=== PATIENT | female | born 1945 | race Caucasian/White ===

== ENCOUNTER → 2016-10-01 | Outpatient (CLI) | payer MEDICARE ==
[2016-10-01 16:12] LABS: Basophils % (A) 1 %; CH 29.5; CHCM 32.3; Eosinophils # (A) 0.2 k/uL (0-0.7); Eosinophils % (A) 3 %; HCT 38.2 % (34.0-46.0); HDW 2.35; Luc % (Auto) 2; Lymphocytes # (A) 1.9 k/uL (1.0-4.8); Lymphocytes % (A) 34 %; MCH 31.3 pg (25.0-35.0); MCHC 34.1 g/dL (31.0-37.0); MCV 91.9 fL (80.0-100.0); Mean Platelet Volume 7.7; Monocytes # (A) 0.3 k/uL (0-1.0); Monocytes % (A) 5 %; Neutrophils # (A) 3.2 k/uL (1.3-7.7); Neutrophils % (A) 56 %; RBC 4.16 m/uL (3.80-5.40); RDW 13.5 % (11.5-15.5); WBC 5.6 k/uL (3.8-10.6)
[2016-10-01 16:18] LABS: Creatine Kinase 112 U/L (30-135); Non-African American GFR(MDRD) >60 (>60 ml/min/1.73 sqM)
[2016-10-01 16:21] LABS: Rheumatoid Factor, Qnt <9 IU/mL (<12)
[2016-10-01 16:55] LABS: Erythrocyte Sedimentation Rate 18 mm/hr (0-20)
[2016-10-01 17:07] LABS: Vitamin B12 516 pg/mL
[2016-10-01 18:47] LABS: Hemoglobin A1C 5.5 % (4.2-6.1)
[2016-10-02 01:04] LABS: Treponemal Ab Non-Reactive (Non-Reactive)
[2016-10-02 01:35] LABS: ANA w/Reflex to Titer NEGATIVE (NEGATIVE)
[2016-10-02 04:23] LABS: Lyme Antibodies Total(IgG/IgM) 0.43 (<0.90)
== END ==
LOC: LABWHC1 15:39
PROVIDERS: ATTEND Psychiatry & Neurology Neurology
DX: G62.9 Polyneuropathy, unspecified (principal)
CPT/HCPCS: 36415; 82550; 82565; 82607; 82747; 83036; 84165; 84439; 84443; 85025; 85652; 86038; 86431; 86618; 86780

== ENCOUNTER → 2016-10-10 | Outpatient (CLI) | payer MEDICARE ==
--- NOTE | 2016-10-11 13:43 | MR ---
MRI brain with and without contrast HISTORY: Tremors left hand Multiplanar multisequence and postcontrast images through the brain following 15 cc MultiHance IV No comparisons There is no restricted diffusion. There is no hemorrhage or hydrocephalus. The corpus callosum, pitui tary, cervical medullary junction, cerebellopontine angles are unremarkable. No abnormal enhancement following contrast administration. Periventricular white matter shows scattered and confluent areas o f hyperintensity on inversion recovery and T2-weighted sequences. Normal vascular flow voids and enha ncement is present. The orbits show symmetric appearance. Some minimal inflammatory change present in the mastoid air cells on the right. IMPRESSION: Nonspecific white matter demyelination likely due to chronic small vessel ischemia. Age-r elated atrophy. No enhancing mass. Additional findings above.
--- NOTE | 2016-10-11 17:07 | MR ---
EXAMINATION TYPE: MR cervical spine wo con DATE OF EXAM: 10/10/2016 2:17 PM COMPARISON: NONE HISTORY: tremors left hand TECHNIQUE: Multiplanar, multisequence images of the cervical spine were acquired. C2-C3: No evidence for degenerative disc disease. No disc bulge/herniation or protrusion. No Canal stenosis. Foramina are patent bilaterally. C3-C4: There is left-sided foraminal encroachment due to uncovertebral joint hypertrophy, facet arthr opathy. No significant central stenosis. No sizable disc herniation, small broad-based disc bulge cau ses minimal anterior mass effect on the thecal sac. C4-C5: Right-sided foraminal encroachment is present. Posterior extension of endplate disc complex ma y contact the anterior cervical cord resulting in mild central canal stenosis. C5-C6: Broad-based posterior disc bulge causes minimal anterior mass effect on the thecal sac. Some l eft-sided foraminal encroachment is mild. No central stenosis. C6-C7: Broad-based posterior disc bulge causes minimal anterior mass effect on the thecal sac. Some m inimal left-sided foraminal encroachment is present. C7-T1: No evidence for degenerative disc disease. No disc bulge/herniation or protrusion. No Canal stenosis. Foramina are patent bilaterally. Cervical segments are intact. There is normal alignment. Cervical spinal cord is of normal signal. Craniovertebral junction relationships are within normal limits. Loss of disc height and signal is present at C6-7 with associated endplate discogenic marrow signal change. Minimal anterolisthesis gra de 1 C5-6. IMPRESSION: Mild multilevel degenerative disc disease. Foraminal encroachment as described.
== END | disposition home or self-care (01) ==
LOC: RADMRIMAIN 13:39
PROVIDERS: ATTEND Psychiatry & Neurology Neurology
DX: M50.00 Cervical disc disorder with myelopathy, unspecified cervical region (principal); G25.0 Essential tremor; G23.9 Degenerative disease of basal ganglia, unspecified; R90.89 Other abnormal findings on diagnostic imaging of central nervous system
CPT/HCPCS: 70553; 72141; A9577

== ENCOUNTER → 2017-01-28 | Outpatient (CLI) | payer MEDICARE ==
[2017-01-28 11:32] LABS: CH 30.4; CHCM 32.5; HCT 42.7 % (34.0-46.0); HDW 2.32; MCH 30.8 pg (25.0-35.0); MCHC 32.7 g/dL (31.0-37.0); MCV 94.1 fL (80.0-100.0); Mean Platelet Volume 8.3; RBC 4.54 m/uL (3.80-5.40); RDW 14.3 % (11.5-15.5); WBC 6.7 k/uL (3.8-10.6)
[2017-01-28 11:44] LABS: Anion Gap 10 mmol/L; Blood Urea Nitrogen 14 mg/dL (7-17); Carbon Dioxide 22 mmol/L (22-30); Chloride 110 mmol/L (98-107); Non-African American GFR(MDRD) >60 (>60 ml/min/1.73 sqM); Potassium 4.2 mmol/L (3.5-5.1); Sodium 142 mmol/L (137-145)
== END | disposition home or self-care (01) ==
LOC: LABPAT 11:07
PROVIDERS: ATTEND Internal Medicine Cardiovascular Disease
DX: Z01.812 Encounter for preprocedural laboratory examination (principal); I25.10 Atherosclerotic heart disease of native coronary artery without angina pectoris
CPT/HCPCS: 80051; 82565; 84520; 85027

== ENCOUNTER 2017-02-02 06:34 | Day surgery (SDC) | payer MEDICARE ==
[2017-01-28 15:58] VITALS: BMI 30.3
[~2017-02-02 06:34] MED LIST: ALPRAZolam 0.25 MG TAB PO PRN; ALPRAZolam 0.5 MG TAB PO PRN; ASPIRIN 325 MG TAB PO STA; ATORVASTATIN 80 MG TAB PO STA; NITROGLYCERIN SL TABS 0.4 MG TAB SUBLINGUAL PRN; SODIUM CHLORIDE 0.9% 1,000 ML in EMPTY BAG 1 BAG IV ONE
[2017-02-02] MEDS ORDERED: amLODIPine 10 MG TAB PO STA (07:17)
[2017-02-02] MEDS ORDERED: NITROGLYCERIN OINT 1 INCH/GM PACKET TOPICAL STA (07:17)
[2017-02-02 07:32] VITALS: PULSE 76; TEMP 97.7
[2017-02-02] MEDS ORDERED: SODIUM CHLORIDE 0.9% 1,000 ML IV ONE (07:37)
[2017-02-02] MEDS: MIDAZOLAM 2 MG/2 ML VIAL IV ONE ×2 (07:40→07:48)
[2017-02-02] MEDS ORDERED: fentaNYL (PF) 50 MCG/ML 2 ML AMP IV ONE (07:40)
[2017-02-02] MEDS: hydrALAZINE HCL 20 MG/ML 1 ML VIAL IV ONE ×2 (07:42→08:08)
[2017-02-02] MEDS ORDERED: LIDOCAINE 2% INJ 20 MG/ML SQ ONE (07:46)
[2017-02-02] MEDS ORDERED: RX INFO: IV CONTRAST WAS GIVEN 1 EACH MISC MISCELLANE PRN (08:28)
[2017-02-02] MEDS ORDERED: SODIUM CHLORIDE 0.9% 1,000 ML IV SCH (08:30)
[2017-02-02] MEDS ORDERED: IOHEXOL 350 MG/ML 125ML BOTTLE INJ ONE (08:34)
--- NOTE | 2017-02-02 08:48 | PCN ---
INDICATION: Abnormal stress test in patient with known CAD status post prior angioplasty of diagonal branch. PROCEDURE: After obtaining informed consent the left heart catheterization and coronary angiogram were performed via the right femoral artery using standard Franc catheters. The patient tolerated the procedure well without any obvious immediate complications. The femoral angiogram was performed and Angio-Seal was deployed for hemostasis. A size 3.5 Franc catheter was used as the size 4 was more selectively engaging the circ. FINDINGS: 1. HEMODYNAMICS: Left ventricular end-diastolic pressure was 15 mmHg. There is no significant gradient across the aortic valve. 2. LEFT VENTRICULOGRAM: Left ventriculogram is not performed. 3. ANGIOGRAPHIC DATA: The left main coronary artery is a short vessel and is free of stenosis. It divides into left anterior descending coronary artery and circumflex coronary artery. The circumflex coronary artery is a large caliber vessel, large dominant vessel. The very distal circ as it becomes the AV grove has 60 to 70% stenosis in it. The LAD shows mild atherosclerotic plaque just after the origin of the large caliber diagonal branch. At its worse it is probably 40 to 50% stenosis. Diagonal branch, which was previously stented appears subtotally occluded. Right coronary artery is a small, nondominant vessel and is free of significant disease. CONCLUSION: 1. 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 2. Moderate stenosis involving the AV groove circ. 3. Mild stenosis involving the LAD. PLAN: I am going to review the angiographic data with Dr. Salas, the on-call air traffic supervisor and see if we can angioplasty the diagonal branch. I explained these issues at length to the patient and she understands and in agreement to the plans. Patient received moderate conscious sedation. Total sedation time was 23 minutes. Patient had elevated blood pressures and received Apresoline during the study along with nitro paste and Norvasc. [facility] SYSTEMJosé Miguel
[2017-02-02] MEDS ORDERED: cloNIDine HCL 0.2 MG TAB PO SCH (09:00)
[2017-02-02] MEDS ORDERED: ATORVASTATIN 80 MG TAB PO SCH (09:00)
[2017-02-02 09:09] VITALS: RESP 18
[2017-02-02 10:34] VITALS: BP 107/55
[2017-02-02] MEDS ORDERED: amLODIPine 10 MG TAB PO SCH (21:00)
== END 2017-02-02 13:45 | disposition home or self-care (01) ==
LOC: CATHCVL 06:34
PROVIDERS: ATTEND Internal Medicine Cardiovascular Disease
DX: I25.10 Atherosclerotic heart disease of native coronary artery without angina pectoris (principal); I25.82 Chronic total occlusion of coronary artery; I10 Essential (primary) hypertension; Z95.5 Presence of coronary angioplasty implant and graft; E07.9 Disorder of thyroid, unspecified; Z79.899 Other long term (current) drug therapy
CPT/HCPCS: 93458; 99152; 99153 ×2; C1760; C1894; C1769; J2001; J2250; J0360; J3010; Q9967

== ENCOUNTER → 2017-03-23 | Outpatient (CLI) | payer MEDICARE ==
--- NOTE | 2017-03-23 12:12 | US ---
EXAMINATION TYPE: US venous doppler duplex LE DATE OF EXAM: 03/23/2017 12:04 PM COMPARISON: NONE CLINICAL HISTORY: LEG PAIN, SWELLING I82.01, I82.402, M79.661, M79.6. SIDE PERFORMED: Bilateral TECHNIQUE: The lower extremity deep venous system is examined utilizing real time linear array sonog pb with graded compression, doppler sonography and color-flow sonography. VESSELS IMAGED: External Iliac Vein (EIV) Common Femoral Vein Deep Femoral Vein Greater Saphenous Vein * Femoral Vein Popliteal Vein Proximal Calf Veins (* superficial vessels) Right Leg: Positive for DVT, thrombus seen within pop vessel, prox through calf veins. Echogenic thr ombus is present without compressibility. Common femoral vein is patent. Left Leg: Negative for DVT Grayscale, color doppler, spectral doppler imaging performed of the deep veins of the lower extremities. There is normal flow, compressibility, vascular waveforms. Positive results were relayed to the ordering physician's office by the jowl trimmer at 12:08 PM on . IMPRESSION: 1. Deep venous thrombosis within the right lower extremity extending from the popliteal vein into the calf veins. 2. No sonographic evidence of deep venous arthrosis within the left lower extremity.
== END | disposition home or self-care (01) ==
LOC: RADUSWWP 11:30
PROVIDERS: ATTEND Orthopaedic Surgery
DX: I82.431 Acute embolism and thrombosis of right popliteal vein (principal); I82.4Z1 Acute embolism and thrombosis of unspecified deep veins of right distal lower extremity; M79.662 Pain in left lower leg
CPT/HCPCS: 93970

== ENCOUNTER → 2017-03-25 | Outpatient (CLI) | payer MEDICARE ==
--- NOTE | 2017-03-25 17:38 | CT ---
EXAMINATION TYPE: CT brain wo con DATE OF EXAM: 03/25/2017 COMPARISON: NONE HISTORY: Medication change 2 days ago. Loss of balance and dizziness CT DLP: 999.8 mGycm. Automated Exposure Control for Dose Reduction was Utilized. TECHNIQUE: CT scan of the head is performed without contrast. FINDINGS: There is symmetric prominence of the peripheral sulci and ventricular system compatible wi th age-related atrophy. No suspicious extra-axial fluid collection is seen. Few foci of patchy hypoat tenuation are seen within the centrum semiovale. There is no acute intracranial hemorrhage, mass effe ct, or midline shift identified. The globes are intact and the visualized sinuses are clear. Dystroph ic calcifications are seen in both basal ganglia. Mild atherosclerosis is seen of the intracranial va sculature in the cavernous portions and supraclinoid portions of the internal carotid arteries. IMPRESSION: 1. No acute intracranial hemorrhage, mass effect, or midline shift is seen. 2. Mild age-related volume loss and nonspecific foci of white matter change that are likely on the ba sis of chronic microangiopathy.
== END | disposition home or self-care (01) ==
LOC: RADCTMAIN 17:14
PROVIDERS: ATTEND Family Medicine
DX: R90.82 White matter disease, unspecified (principal); R42 Dizziness and giddiness
CPT/HCPCS: 70450

== ENCOUNTER → 2018-05-19 | Outpatient (CLI) | payer MEDICARE, OTHER ==
[2018-05-19 15:07] VITALS: BP 190/79; PULSE 76; RESP 18; TEMP 97.6; BMI 26.9
--- NOTE | 2018-05-26 10:29 | P.GSHP ---
History of Present Illness H&P Date: 05/19/18 Chief Complaint: abnormal mammogram right breast Rasheeda is a 73-year-old white female who underwent a routine mammogram which was performed 04-27-18 she was noted to have an area of 5 mm calcifications in the right breast with associated focal asymmetric area. The patient had additional views of this breast with persistence of the calcifications and recommendation is for a stereotactic core biopsy. These are in the upper outer quadrant area. Does not feel any lumps or masses in her breast. There are no radiographic areas of concern in the contralateral breast. She has no nipple discharge or skin changes. She has had no trauma to the breast. Family History: unknown patient is adopted Hormonal history: menarche: 16 : 3, children, 2, 1 miscarrage, first at 26, breast fed: yes menopause: 40, Streck to me done for bleeding, her ovaries were removed as well control pills: reacted to them so could not use them hormones: none Past Surgical History: 1. gallbladder 2. thyroid 3. hysterectomy 4. elbow 5. knee replaced 6. tonsil 7. cardiac stent 8. bilateral cataract surgery Past Medical History: 1. HTN 2. high cholesterol 3. esophageal spasm Social History: smoke: none alcohol: none drugs: none - Constitutional Constitutional: Denies chills, Denies fever - EENT Eyes: denies blurred vision, denies pain Ears: deny: decreased hearing, tinnitus Ears, nose, mouth and throat: Denies headache, Denies sore throat - Breasts Breasts: bilateral: as per HPI - Cardiovascular Comment: cardiac stent, [place] about 6 years ago, deep vein thrombosis Cardiovascular: Reports high blood pressure - Respiratory Respiratory: Denies cough, Denies 7 - Gastrointestinal Comment: esophageal spasm Gastrointestinal: Denies abdominal pain, Denies diarrhea, Denies nausea, Denies vomiting - Genitourinary (Female) Genitourinary: Denies dysuria, Denies hematuria - Menstruation Menstruation: Reports post hysterectomy - Musculoskeletal Comment: herniated disc in her back Musculoskeletal: Reports myalgias - Integumentary Integumentary: Denies pruritus, Denies rash - Neurological Neurological: Denies numbness, Denies weakness - Psychiatric Psychiatric: Reports anxiety, Reports depression - Endocrine Endocrine: Reports fatigue, Reports weight change - Hematologic/Lymphatic Comment: aspirin - Allergic/Immunologic Allergic/Immunologic: Reports seasonal allergies Past Medical History Past Medical History: Deep Vein Thrombosis (DVT), GERD/Reflux, Hypertension, Myocardial Infarction ([place]), Thyroid Disorder Additional Past Medical History / Comment(s): 2012 DVT RT CALF Last Myocardial Infarction Date:: APPROX 2006 History of Any Multi-Drug Resistant Organisms: None Reported Past Surgical History: Adenoidectomy, Cholecystectomy, Heart Catheterization With Stent, Hysterectomy, Orthopedic Surgery, Tonsillectomy Additional Past Surgical History / Comment(s): COLONOSCOPY, right knee replacement. BILAT CATARACTS Past Anesthesia/Blood Transfusion Reactions: Previous Problems w/ Anesthesia Additional Past Anesthesia/Blood Transfusion Reaction / Comment(s): SLOW TO WAKE UP Date of Last Stent Placement:: 2006 ? Past Psychological History: Anxiety Smoking Status: Never smoker Past Alcohol Use History: None Reported Past Drug Use History: None Reported - Past Family History Mother History Unknown: Yes Additional Family Medical History / Comment(s): PT ADOPTED-FAMILY HX UNKNOWN Medications and Allergies Home Medications Medication Instructions Recorded Confirmed Type Levothyroxine Sodium [Synthroid] 112 mcg PO DAILY 01/28/17 05/19/18 History Aspirin 81 mg PO DAILY 02/02/17 05/19/18 History Atorvastatin [Lipitor] 80 mg PO HS 03/23/17 05/19/18 History Acetaminophen Tab [Tylenol Tab] 500 mg PO Q6H 05/19/18 05/19/18 History Benazepril/Hydrochlorothiazide 1 each PO DAILY 05/19/18 05/19/18 History [Benazepril-Hctz 20-25 mg Tab] C,E,Zinc,Copper 11/Orvcn3v/Lut 1 each PO DAILY 05/19/18 05/19/18 History [Ocuvite Adult 50 Plus Softgel] Cholecalciferol [Vitamin D3] 1,000 unit PO DAILY 05/19/18 05/19/18 History Famotidine 40 mg PO DAILY 05/19/18 05/19/18 History Allergies Allergy/AdvReac Type Severity Reaction Status Date / Time codeine Allergy Nausea & Verified 03/23/17 14:17 Vomiting Tetracyclines Allergy Rash/Hives Verified 03/23/17 14:17 Surgical - Exam BMI 26.9 - General well developed, well nourished, no distress - Eyes normal ocular movement - ENT no hearing loss, no congestion - Neck no masses, trachea midline - Respiratory normal respiratory effort, clear to auscultation - Cardiovascular Rhythm: regular Heart Sounds: normal: S1, S2 - Abdomen Abdomen: soft, non tender, no guarding, no rigid, no rebound - Integumentary normal turgar - Neurologic no disoriented, no combative - Musculoskeletal normal gait - Psychiatric oriented to time, oriented to person, oriented to place, speech is normal, memory intact Breast exam: Right breast exam: Multiple position exam no dominant masses or nodules of concern Right axilla: No adenopathy of concern Left breast: Multi-positional exam no dominant masses or nodules of concern Left axilla: No adenopathy of concern Results mammogram reviewed Assessment and Plan Assessment: Impression: 1. Right breast mammographic abnormality for which stereotactic core biopsy is recommended 2. Status post cholecystectomy 3. Status post thyroid surgery 4. Status post hysterectomy 5. Knee replacement 6. Cardiac stent 7. Bilateral cataract surgery 8. Hypertension 9. High cholesterol 10. Esophageal spasm Plan: 1. Stereotactic core biopsy of the right breast 2. Medical management of medical conditions CC: Dr. Umesh Pan
== END | disposition home or self-care (01) ==
LOC: WWCWWP 14:41
PROVIDERS: ATTEND Surgery
DX: Z53.9 Procedure and treatment not carried out, unspecified reason (principal)

== ENCOUNTER → 2018-06-16 | Day surgery (SDC) | payer MEDICARE, OTHER ==
[2018-06-16 07:24] VITALS: RESP 16; TEMP 97.7; BMI 26.9
[2018-06-16 08:30] VITALS: BP 202/80; PULSE 77
--- NOTE | 2018-06-16 12:34 | P.PN ---
Progress Note - Text Progress Note Date: 06/16/18 The patient was scheduled for a stereotactic core biopsy this morning. Her blood pressure however systolic was approximately 206 and multiple checks. Her primary care doctor was contacted and the patient's stereotactic core biopsy was canceled today to be rescheduled. She is going to see her primary care doctor today. Plan: Medical control of blood pressure after which stereotactic core biopsy will be performed Cc: Dr. Umesh Pan
== END ==
LOC: RADMAMWWP 06:58
PROVIDERS: ATTEND Surgery
DX: R92.8 Other abnormal and inconclusive findings on diagnostic imaging of breast (principal); Z53.8 Procedure and treatment not carried out for other reasons

== ENCOUNTER → 2018-09-22 | Outpatient (CLI) | payer MEDICARE, OTHER ==
--- NOTE | 2018-09-22 12:08 | US ---
EXAMINATION TYPE: US renal artery duplex complete DATE OF EXAM: 09/22/2018 COMPARISON: NONE CLINICAL HISTORY: I10 hypertension. Uncontrolled HTN per patient MEASUREMENTS: RENAL SIZE: Rt Kidney: 9.3 x 4.9 x 4.1cm Lt Kidney: 10.0 x 5.3 x 5.0cm RESISTANCE INDEX Right: 0.72 Left: 0.76 RA/AO RATIO (< 3.5 ) Right: 2.8 Left: 3.3 RA VELOCITY ( < 180 cm/s) Right: 129.9 cm/s proximal Left: 153.2 cm/s proximal and highest of 4 measures Aorta: size is wnl, however, ectatic appearance is noted mid and distally with hyperechoic, intimal w all plaque noted mid and distally. Renal US: no hydronephrosis or masses seen. Renal Artery Duplex: a bnormally elevated PSV is noted in proximal bilateral renal artery with mildly elevated RA/AO Ratio o n left side, but still wnl. Aorta shows some ectasia and diffuse atherosclerotic change without greater than 3 cm aneurysm, it is visualized through the bifurcation. Scanning of both kidneys shows no gross hydronephrosis. Renal si zes are symmetric and within normal limits. Renovascular ultrasound shows some elevated velocities bilaterally with ratios upper limits of normal but no convincing evidence of hemodynamically significant focal stenosis as peak systolic velocity m easurements are still within normal limits. IMPRESSION: Moderate diffuse atherosclerotic changes bilaterally from aorta involving both renal waqas robert without convincing evidence for clinically significant focal renal artery stenosis.
== END ==
LOC: RADUSWWP 08:01
PROVIDERS: ATTEND Internal Medicine Cardiovascular Disease
DX: I10 Essential (primary) hypertension (principal)
CPT/HCPCS: 93975

== ENCOUNTER → 2019-03-09 | Outpatient (CLI) | payer MEDICARE, OTHER ==
[2019-03-09 10:03] VITALS: BP 163/82; PULSE 60; RESP 18; TEMP 98.2; BMI 27.8
--- NOTE | 2019-03-09 10:28 | P.PN ---
Subjective Progress Note Date: 03/09/19 Rasheeda is a 73-year-old white female who underwent a routine mammogram which was performed 04-27-18 she was noted to have an area of 5 mm calcifications in the right breast with associated focal asymmetric area. The patient had additional views of this breast with persistence of the calcifications and r ecommendation is for a stereotactic core biopsy. These are in the upper outer quadrant area. Does not feel any lumps or masses in her breast. There are no radiographic areas of concern in the contralateral breast. She has no nipple discharge or skin changes. She has had no trauma to the breast. Rasheeda was scheduled for stereotactic core biopsy and [id number]. On the day of the procedure her systolic blood pressure was over 200 and the procedure was canceled. She has since seen her medical doctor and her blood pressure is now under control. The patient has not noted any changes in her breast. She has no nipple discharge or abnormalities. Family History: unknown patient is adopted Hormonal history: menarche: 16 : 3, children, 2, 1 miscarrage, first at 26, breast fed: yes menopause: 40, hysterectomy done for bleeding, her ovaries were removed as well control pills: reacted to them so could not use them hormones: none Past Surgical History: 1. gallbladder 2. thyroid 3. hysterectomy 4. elbow 5. knee replaced 6. tonsil 7. cardiac stent 8. bilateral cataract surgery 9. Stretching of esophageal stricture done endoscopically Past Medical History: 1. HTN 2. high cholesterol 3. esophageal spasm Social History: smoke: none alcohol: none drugs: none - Constitutional Constitutional: Denies chills, Denies fever - EENT Eyes: denies blurred vision, denies pain Ears: deny: decreased hearing, tinnitus Ears, nose, mouth and throat: Denies headache, Denies sore throat - Breasts Breasts: bilateral: as per HPI - Cardiovascular Comment: cardiac stent, [place] about 6 years ago, deep vein thrombosis Cardiovascular: Reports high blood pressure - Respiratory Respiratory: Denies cough, Denies 7 - Gastrointestinal Comment: esophageal spasm Gastrointestinal: Denies abdominal pain, Denies diarrhea, Denies nausea, Denies vomiting - Genitourinary (Female) Genitourinary: Denies dysuria, Denies hematuria - Menstruation Menstruation: Reports post hysterectomy - Musculoskeletal Comment: herniated disc in her back Musculoskeletal: Reports myalgias - Integumentary Integumentary: Denies pruritus, Denies rash - Neurological Neurological: Denies numbness, Denies weakness - Psychiatric Psychiatric: Reports anxiety, Reports depression - Endocrine Endocrine: Reports fatigue, Reports weight change - Hematologic/Lymphatic Comment: aspirin - Allergic/Immunologic Allergic/Immunologic: Reports seasonal allergies Past Medical History Past Medical History: Deep Vein Thrombosis (DVT), GERD/Reflux, Hypertension, Myocardial Infarction ([place]), Thyroid Disorder Additional Past Medical History / Comment(s): 2012 DVT RT CALF Last Myocardial Infarction Date:: APPROX 2006 History of Any Multi-Drug Resistant Organisms: None Reported Past Surgical History: Adenoidectomy, Cholecystectomy, Heart Catheterization With Stent, Hysterectomy, Orthopedic Surgery, Tonsillectomy Additional Past Surgical History / Comment(s): COLONOSCOPY, right knee replacement. BILAT CATARACTS Past Anesthesia/Blood Transfusion Reactions: Previous Problems w/ Anesthesia Additional Past Anesthesia/Blood Transfusion Reaction / Comment(s): SLOW TO WAKE UP Date of Last Stent Placement:: 2006 ? Past Psychological History: Anxiety Smoking Status: Never smoker Past Alcohol Use History: None Reported Past Drug Use History: None Reported Objective - Vital Signs Vital signs: Vital Signs Temp 98.2 F 03/09/19 10:00 Pulse 60 03/09/19 10:00 Resp 18 03/09/19 10:00 BP 163/82 03/09/19 10:00 Pulse Ox 94 L 03/09/19 10:00 Intake & Output 03/08/19 03/09/19 03/09/19 18:59 06:59 18:59 Weight 68.946 kg - Exam BMI 27.8 - Constitutional General appearance: Present: average body habitus - EENT Eyes: Present: EOMI ENT: Present: hearing grossly normal - Neck Neck: Present: normal ROM - Respiratory Respiratory: bilateral: CTA - Cardiovascular Rhythm: regular Heart sounds: normal: S1, S2 - Gastrointestinal General gastrointestinal: Present: soft - Integumentary Integumentary Comment(s): Multiple nevi over her back and a dark nevus in the lower outer aspect of the right breast for which excision is recommended Integumentary: Present: normal turgor - Musculoskeletal Musculoskeletal: Present: gait normal - Psychiatric Psychiatric: Present: A&O x's 3, appropriate affect, intact judgment & insight - Additional findings Additional findings: breast exam: Right breast: Multi-positional exam fibrocystic changes no dominant masses or nodules of concern Right axilla: No adenopathy of concern left breast: Multiple positional exam under dominant masses or nodules of concern Left axilla: No adenopathy of concern On the right breast in the inferior outer aspect is a dark nevus for which excision is recommended Assessment and Plan Assessment: Impression: 1. HTN 2. high cholesterol 3. esophageal spasm 4. Mammographic abnormality right breast 5. Patient for stereotactic core biopsy right breast 6. Multiple nevi dark nevus right breast lower outer quadrant for excision 7. The patient's last bilateral mammogram was in April 2018 at [facility] she will have a repeat bilateral mammogram on [id number]. Rasheeda was originally scheduled for stereotactic core biopsy in June 2018. At that procedure she was noted to have hypertension and the procedure was canceled. She is now been treated and the hypertension is under control. She is being rescheduled for stereotactic core biopsy of the right breast. Additionally after this is done excision of the dark nevus on the right breast w ill be performed. The patient does use baby aspirin she will stop this for 1 week prior to the procedure if okay with her medical doctor. The patient's last bilateral mammogram was 04/27/2018. We have discussed repeating a mammogram prior to the stereo biopsy in case there are changes which would require additional biopsy. Understands and her stereo biopsy will be scheduled the week after her bilateral mammogram. Plan: 1. Stereotactic core biopsy right breast 2. Excision of nevus right breast 3. Medical management medical conditions Cc: Dr. Umesh Pan
== END | disposition home or self-care (01) ==
LOC: WWCWWP 09:48
PROVIDERS: ATTEND Surgery
DX: Z53.9 Procedure and treatment not carried out, unspecified reason (principal)

== ENCOUNTER → 2019-05-10 | Outpatient (CLI) | payer MEDICARE, OTHER ==
--- NOTE | 2019-05-11 07:44 | MM ---
Reason for exam: additional evaluation requested from prior study. History: Patient is postmenopausal. Physical Findings: Nurse did not find any significant physical abnormalities on exam. MG 3D Diag Mammo W/Cad LEEROY Bilateral CC and MLO view(s) were taken. LM, CC with magnification, and LM with magnification view(s) were taken of the right breast. The breast tissue is heterogeneously dense. This may lower the sensitivity of mammography. There is a 7mm group of pleomorphic calcifications in the right upper outer quadrant at middle depth. Biopsy recommended. No suspicious abnormality on the left breast. Benign appearing similar left calcifications. These results were verbally communicated with the patient and result sheet given to the patient on 05/10/19. ASSESSMENT: Suspicious, BI-RAD 4 RECOMMENDATION: Stereotactic core biopsy of the right breast. Called Dr. Jenkins's office with mammographic findings. Biopsy scheduled for 05/11/19 at 8:00. PRELIMINARY REPORT CALLED AND FAXED TO DR. JENKINS ON 05/11/19.
== END | disposition home or self-care (01) ==
LOC: RADMAMWWP 14:11
PROVIDERS: ATTEND Surgery
DX: R92.8 Other abnormal and inconclusive findings on diagnostic imaging of breast (principal)
CPT/HCPCS: 77066; G0279; 77062

== ENCOUNTER → 2019-05-11 | Day surgery (SDC) | payer MEDICARE, OTHER ==
[2019-05-11 07:31] VITALS: PULSE 52; RESP 16
[2019-05-11 08:49] VITALS: BP 182/91; TEMP 97.5
--- NOTE | 2019-05-11 09:08 | MM ---
EXAMINATION TYPE: MG stereo VAD BX RT DATE OF EXAM: 05/11/2019 COMPARISON: NONE CLINICAL HISTORY: Indeterminate right breast calcifications for which stereotactic guided biopsy was recommended. No the initial biopsy was canceled due to hypertension, recommended approximately 1 year ago. TECHNIQUE: Stereotactic guided core biopsy of right breast. FINDINGS: The procedure of stereotactic guided core biopsy was explained to the patient. Benefits, alternatives, and risks were discussed. An informed consent was then obtained. Preprocedural timeout was performed. The shortness pathway for biopsy was chosen approximately 7 mm group of calcifications in the upper-outer quadrant of the right breast. Shortness pathway was lateral to medial approach. I performed the localization, then surgeon, Dr. Maxim Aguilar performed the remainder of the procedure. A vacuum assisted biopsy gun was used to obtain multiple core samples. The patient tolerated the procedure well without any immediate complication. The patient was kept in the radiology department for short stay after the procedure and then discharged home in stable condition. Targeted calcifications are identified in specimen mammogram. Post biopsy mammogram shows the clip to appear in satisfactory position relative to the targeted area of concern on the preprocedure images. IMPRESSION: SUCCESSFUL, UNCOMPLICATED STEREOTACTIC GUIDED CORE BIOPSY OF A 7 MM CALCIFICATIONS IN THE UPPER OUTER QUADRANT OF THE RIGHT BREAST, FULL PATHOLOGY RESULTS TO FOLLOW. Pathology Results: Malignant RIGHT BREAST, STEREOTACTIC CORE BIOPSY: Ductal carcinoma in situ (DCIS), Grade 2 with associated calcifications. See Surgical Pathology Cancer Case Summary and Comment. Recommendation Surgical consult of the right breast. ROSALINDA
--- NOTE | 2019-05-11 14:39 | P.PCN ---
Date of Procedure: 05/11/19 Preoperative Diagnosis: Microcalcifications of concern right breast Postoperative Diagnosis: same Procedure(s) Performed: Right breast stereotactic core biopsy Anesthesia: local Surgeon: Yaima Jenkins Estimated Blood Loss (ml): 0 Pathology: other (8 cores of breast tissue) Condition: stable Disposition: same day Indications for Procedure: Microcalcifications of concern in the right breast Operative Findings: Radiographic specimen revealed microcalcifications Description of Procedure: The patient is a 74-year-old white female noted to have some microcalcifications of concern in the right breast. Stereotactic core biopsy was recommended. The patient was brought to the stereotactic core room and a mud boss film was obtained. A lateral to medial approach was utilized. The area of concern was identified. The area of concern was targeted. The breast was prepped using Betadine. 20 mL of lidocaine 1% was used to anesthetize the area of concern. A 9-gauge vacuum-assisted rotating core biopsy needle was driven to the correct coordinates and fired, post-fire films were obtained. The needle was noted to be in the correct location. 8 core biopsies were obtained. Radiograph of the specimen revealed the area of concern to be sampled was obtained. Microcalcifications were in the specimen. A secure hugo top Marker was deployed. Radiograph revealed this was in the correct location. The patient tolerated procedure in stable condition. Specimen sent to pathology. The patient will follow with Dr. Pan next week.
== END ==
LOC: RADMAMWWP 06:58
PROVIDERS: ATTEND Surgery
DX: D05.11 Intraductal carcinoma in situ of right breast (principal); N64.89 Other specified disorders of breast; Z88.5 Allergy status to narcotic agent; Z88.1 Allergy status to other antibiotic agents
CPT/HCPCS: 88305; 88342; 88341; 19081; A4648; J2001

== ENCOUNTER → 2019-05-18 | Outpatient (CLI) | payer MEDICARE, OTHER ==
[2019-05-18 11:46] VITALS: BP 171/84; PULSE 70; RESP 18; TEMP 98.1
--- NOTE | 2019-05-18 13:23 | P.PN ---
Subjective Progress Note Date: 05/18/19 Principal diagnosis: DCIS The patient is a 74-year-old white female who underwent a stereotactic core biopsy [place] [id number]. Pathology revealed ductal carcinoma in situ. Postprocedure the patient has had no complaints. Her pathology revealed a grade 2 tumor that was ER/[place] positive. Objective - Vital Signs Vital signs: Vital Signs Temp 98.1 F 05/18/19 11:44 Pulse 70 05/18/19 11:44 Resp 18 05/18/19 11:44 BP 171/84 05/18/19 11:44 Pulse Ox 98 05/18/19 11:44 Intake & Output 05/17/19 05/18/19 05/18/19 18:59 06:59 18:59 Weight 75.296 kg - Constitutional General appearance: Present: average body habitus - EENT Eyes: Present: EOMI ENT: Present: hearing grossly normal - Respiratory Respiratory: bilateral: CTA - Cardiovascular Rhythm: regular Heart sounds: normal: S1, S2 - Genitourinary Genitourinary Comment(s): Mild ecchymosis right breast at biopsy site No evidence of hematoma No evidence of infection Assessment and Plan Assessment: Impression: 1. DCIS right breast 2. Mild ecchymosis right breast of biopsy site I had a long discussion with the patient and her [id number] regarding the pathology results. We have discussed treatment options which would include lumpectomy plus or minus radiation, mastectomy plus or minus reconstruction, and possible sentinel node biopsy. I've also discussed surgical approaches for a lumpectomy which include lumpectomy via donut mastopexy which would result in some asymmetry of the nipple areolar complex between the breast. The patient understands these and wishes to proceed with lumpectomy via donut mastopexy if possible. Her case will be presented at tumor board. I have reviewed her case with Dr. Gibson. She does have scattered calcifications bilaterally the remainder of the calcifications are felt to be benign. I discussed further radiographic evaluation including MRI however at this time he did not feel this was necessary. The patient wishes to wait until July for her procedure. She has a vacation planned. The patient understands the risk of waiting, this that this could progress to become an invasive tumor. Despite this she wishes to wait. She will be scheduled for July. [facility] nurse navigator was present for the discussion. She will take the patient to meet the radiation oncologist later this afternoon. Discussed the fact that this is ER/[place] positive tumor and that she will be recommended to have hormonal therapy. Her case is to be presented at tumor board. Plan: 1. Appointment with radiation oncology 2. Present case at tumor board 3. Right breast needle localization lumpectomy via donut mastopexy with tissue transfer, right axillary sentinel node biopsy Encounter 45 minutes > 50% spent in planning and counseling Time with Patient: Greater than 30
== END ==
LOC: WWCWWP 11:32
PROVIDERS: ATTEND Surgery
DX: Z53.9 Procedure and treatment not carried out, unspecified reason (principal)

== ENCOUNTER → 2019-07-13 | Outpatient (CLI) | payer MEDICARE, OTHER ==
[2019-07-13 10:01] VITALS: BP 176/77; PULSE 63; RESP 18; TEMP 98.3
--- NOTE | 2019-07-13 10:29 | P.PN ---
Subjective Progress Note Date: 07/13/19 Principal diagnosis: DCIS Rasheeda is a 73-year-old white female who underwent a routine mammogram which was performed 04-27-18 she was noted to have an area of 5 mm calcifications in the right breast with associated focal asymmetric area. The patient had additional views of this breast with persistence of the calcifications and recommendation is for a stereotactic core biopsy. These are in the upper outer quadrant area. Does not feel any lumps or masses in her breast. There are no radiographic areas of concern in the contralateral breast. She has no nipple discharge or skin changes. She has had no trauma to the breast. Rasheeda was scheduled for stereotactic core biopsy and [id number]. On the day of the procedure her systolic blood pressure was over 200 and the procedure was canceled. She has since seen her medical doctor and her blood pressure is now under control. Her stereotactic core biopsy was performed in May 2019. A pleomorphic group of calcifications was noted in the upper outer quadrant of the right breast. Stereotactic core biopsy revealed DCIS grade 2 ER/NH positive. The patient has not noted any changes in her breast. She has no nipple discharge or abnormalities. Family History: unknown patient is adopted Hormonal history: menarche: 16 : 3, children, 2, 1 [place], first at 26, breast fed: yes menopause: 40, hysterectomy done for bleeding, her ovaries were removed as well control pills: reacted to them so could not use them hormones: none Past Surgical History: 1. gallbladder 2. thyroid 3. hysterectomy 4. elbow 5. knee replaced 6. tonsil 7. cardiac stent 8. bilateral cataract surgery 9. Stretching of esophageal stricture done endoscopically Past Medical History: 1. HTN 2. high cholesterol 3. esophageal spasm Social History: smoke: none alcohol: none drugs: none - Constitutional Constitutional: Denies chills, Denies fever - EENT Eyes: denies blurred vision, denies pain Ears: deny: decreased hearing, tinnitus Ears, nose, mouth and throat: Denies headache, Denies sore throat - Breasts Breasts: bilateral: as per HPI - Cardiovascular Comment: cardiac stent, ID about 6 years ago, deep vein thrombosis Cardiovascular: Reports high blood pressure - Respiratory Respiratory: Denies cough - Gastrointestinal Comment: esophageal spasm Gastrointestinal: Denies abdominal pain, Denies diarrhea, Denies nausea, Denies vomiting - Genitourinary (Female) Genitourinary: Denies dysuria, Denies hematuria - Menstruation Menstruation: Reports post hysterectomy - Musculoskeletal Comment: herniated disc in her back Musculoskeletal: Reports myalgias - Integumentary Integumentary: Denies pruritus, Denies rash - Neurological Neurological: Denies numbness, Denies weakness - Psychiatric Psychiatric: Reports anxiety, Reports depression - Endocrine Endocrine: Reports fatigue, Reports weight change - Hematologic/Lymphatic Comment: aspirin - Allergic/Immunologic Allergic/Immunologic: Reports seasonal allergies Past Medical History Past Medical History: Deep Vein Thrombosis (DVT), GERD/Reflux, Hypertension, Myocardial Infarction (ID), Thyroid Disorder Additional Past Medical History / Comment(s): 2012 DVT RT CALF Last Myocardial Infarction Date:: APPROX 2006 History of Any Multi-Drug Resistant Organisms: None Reported Past Surgical History: Adenoidectomy, Cholecystectomy, Heart Catheterization With Stent, Hysterectomy, Orthopedic Surgery, Tonsillectomy Additional Past Surgical History / Comment(s): COLONOSCOPY, right knee replacement. BILAT CATARACTS Past Anesthesia/Blood Transfusion Reactions: Previous Problems w/ Anesthesia Additional Past Anesthesia/Blood Transfusion Reaction / Comment(s): SLOW TO WAKE UP Date of Last Stent Placement:: 2006 ? Past Psychological History: Anxiety Smoking Status: Never smoker Past Alcohol Use History: None Reported Past Drug Use History: None Reported Objective - Vital Signs Vital signs: Vital Signs Temp 98.3 F 07/13/19 09:59 Pulse 63 07/13/19 09:59 Resp 18 07/13/19 09:59 BP 176/77 07/13/19 09:59 Pulse Ox 95 07/13/19 09:59 Intake & Output 07/12/19 07/13/19 07/13/19 18:59 06:59 18:59 Weight 73.936 kg - Exam BMI 29.8 - Constitutional General appearance: Present: average body habitus - EENT Eyes: Present: EOMI ENT: Present: hearing grossly normal - Neck Neck: Present: normal ROM - Respiratory Respiratory: bilateral: CTA - Cardiovascular Rhythm: regular Heart sounds: normal: S1, S2 - Gastrointestinal General gastrointestinal: Present: normal bowel sounds, soft - Integumentary Integumentary: Present: normal turgor - Musculoskeletal Musculoskeletal: Present: gait normal - Psychiatric Psychiatric: Present: A&O x's 3, appropriate affect, intact judgment & insight - Additional findings Additional findings: breast exam: BRA 40C ptosis grade 2/3 Inspection: No skin lesions of concern on the breast, no nipple inversion, under both breasts some mild yeast infection Palpation: Right Breasts: Multiple positional exam fibrocystic changes, no dominant masses or nodules of concern Right axilla: No adenopathy of concern left breast: Multiple positional exam no dominant masses or nodules of concern, fibrocystic changes Left axilla: No adenopathy of concern Assessment and Plan Assessment: Impression: 1. Right breast ductal carcinoma in situ 2. Hypertension 3. High cholesterol 4. Esophageal spasm 5. Prior history of cardiac stents placed 6. mild yeast infection under both breast Plan: 1. Nystatin apply under breast 2. Right breast sentinel node injection/sentinel node biopsy/possible axillary node dissection, needle localization and lumpectomy possible tissue transfer 3. Medical clearance Cc: Dr. Umesh Pan
== END | disposition home or self-care (01) ==
LOC: WWCWWP 09:33
PROVIDERS: ATTEND Surgery
DX: Z53.9 Procedure and treatment not carried out, unspecified reason (principal)

== ENCOUNTER 2019-07-18 09:54 | Day surgery (SDC) | payer MEDICARE, OTHER ==
[2019-07-17 09:48] VITALS: BMI 29.8
[~2019-07-18 09:54] MED LIST changes: -ALPRAZolam 0.25 MG TAB PO PRN; -ALPRAZolam 0.5 MG TAB PO PRN; -ASPIRIN 325 MG TAB PO STA; -ATORVASTATIN 80 MG TAB PO STA; +DEXAMETHASONE SOD PHOSPHATE 10 MG/ML 1 ML VIAL IV ONE; +HEPARIN SODIUM,PORCINE 5,000 UNIT/ML 1 ML VIAL SQ ONE; +LACTATED RINGERS 1,000 ML IV SCH; +LIDOCAINE 1% 20 ML VIAL (10MG/ML) FOR IV START INTRADERMA PRN; -NITROGLYCERIN SL TABS 0.4 MG TAB SUBLINGUAL PRN; +Pre Op ABX Message 1 EACH MISC MISCELLANE ONE; -SODIUM CHLORIDE 0.9% 1,000 ML in EMPTY BAG 1 BAG IV ONE; +fentaNYL (PF) 50 MCG/ML 2 ML AMP IV PRN
[2019-07-18 10:27] LABS: Glucose,Whole Blood 102 mg/dL (75-99)
[2019-07-18] MEDS ORDERED: ALPRAZolam 0.5 MG TAB PO ONE (10:33)
[2019-07-18] MEDS ORDERED: LIDOCAINE 1% INJ 10MG/ML (20 ML MDV) SQ ONE ×3 (11:19→14:15)
--- NOTE | 2019-07-18 12:08 | NM ---
EXAMINATION TYPE: NM sentinel node injection DATE OF EXAM: 07/18/2019 COMPARISON: NONE HISTORY: RIGHT BREAST CANCER TECHNIQUE AND FINDINGS: The procedure of sentinel lymph node injection was explained to the patient. The benefits, alternatives, and risks were discussed. An informed consent was then obtained. Overlying skin is cleaned with sterile alcohol. Following this, 524 uCi Tc99m Tilmanocept was inject ed in the upper outer aspect of the right nipple intradermally. The patient tolerated the procedure well without any immediate complication. The patient was kept in the radiology department for short stay after the procedure and then taken to surgery for surgical p rocedure what is presumed intraoperative gamma probe will be used for sentinel lymph node detection. IMPRESSION: Right breast radiotracer injection for sentinel node localization as above.
[2019-07-18] MEDS ORDERED: PROPOFOL 10 MG/ML 20 ML VIAL IV ONE (12:35)
[2019-07-18] MEDS ORDERED: ONDANSETRON 4 MG/2 ML VIAL ONE (12:35)
[2019-07-18] MEDS ORDERED: DEXAMETHASONE SOD PHOS (MDV) 100 MG/10 ML VIAL ONE (12:35)
[2019-07-18] MEDS ORDERED: fentaNYL (PF) 50 MCG/ML 2 ML AMP ONE (12:35)
[2019-07-18] MEDS ORDERED: GLYCOPYRROLATE 0.2 MG/ML 2 ML VIAL ONE (12:35)
[2019-07-18] MEDS ORDERED: LIDOCAINE 1% INJ 10MG/ML (20 ML MDV) ONE (12:35)
[2019-07-18] MEDS ORDERED: MIDAZOLAM 2 MG/2 ML VIAL ONE (12:35)
[2019-07-18] MEDS ORDERED: SUCCINYLCHOLINE CHLORIDE 100 MG/5 ML SYR IV ONE (12:35)
[2019-07-18] MEDS ORDERED: ROCURONIUM BROMIDE 10 MG/ML 5 ML VIAL IV ONE (12:35)
--- NOTE | 2019-07-18 14:26 | P.OP ---
Date of Procedure: 07/18/19 Preoperative Diagnosis: Right breast ductal carcinoma in situ Postoperative Diagnosis: Same Procedure(s) Performed: Right breast needle local lumpectomy, sentinel node biopsy Anesthesia: BEATRICE Surgeon: Yamia Jenkins Estimated Blood Loss (ml): 10 IV fluids (ml): 800 Pathology: other ([place] lymph node, breast tissue) Condition: stable Disposition: same day Indications for Procedure: core Biopsy-proven ductal carcinoma in situ right breast Operative Findings: Fibrofatty breast tissue Description of Procedure: Rasheeda is a 74-year-old white female who underwent a stereotactic core biopsy of the right breast. Pathology revealed ductal carcinoma in situ. She wished to undergo a lumpectomy with sentinel node biopsy after options were discussed with the patient. The patient preoperatively presented to the radiology department and the area of concern was localized. Mesocolon was injected for sentinel biopsy. The patient was taken to the operating room and following induction of anes thesia the right breast and axilla were prepped and draped in a sterile fashion. Using the neoprobe area of greatest radioactivity was identified. An incision was made and carried down into the axillary tissue. A deep lymph node was identified in level I and wide excision was performed using the Harmonic scalpel. After assured that hemostasis was attained the deep tissues were closed using 3-0 Vicryl suture. The skin was closed using 4-0 Monocryl. The breast was then approached. A crescent mastopexy incision had been marked preoperatively. The skin in this area was de-epithelialized. The lateral aspect the parenchyma was entered and the dissection was performed down to the shaft of the needle. The needle was grasped and brought into the field of work. Using Allis clamps the tissues grasped and wide excision was performed onto the pectoralis major muscle. The specimen was removed and painted for orientation. Titanium clips were placed to delineate the cavity. The deep tissues were closed using 3-0 Vicryl suture. Radiograph of the specimen revealed the area of concern had been removed. The deep tissues were closed using 3-0 Vicryl suture. The skin was closed using 4-0 Monocryl. Steri-Strips were applied. The patient tolerated the procedure in stable condition. All instrument and sponge counts were correct at the end of the case.
--- NOTE | 2019-07-18 14:28 | P.DS ---
Providers Attending physician: Yaima Jenkins Primary care physician: Umesh Pan Plan - Discharge Summary Discharge Rx Participant: No New Discharge Prescriptions: No Action Levothyroxine Sodium [Synthroid] 112 mcg PO QAM Aspirin 81 mg PO HS Acetaminophen Tab [Tylenol Tab] 500 mg PO Q6H Cholecalciferol [Vitamin D3] 1,000 unit PO HS C,E,Zinc,Copper 11/Cekei4r/Lut [Ocuvite Adult 50 Plus Softgel] 1 each PO QAM Atenolol [Tenormin] 25 mg PO HS Omeprazole 40 mg PO QAM methylPREDNISolone [Medrol Dose Pack] 4 mg PO DIRECTED Amoxicillin/Potassium Clav [Augmentin 875-125 Tablet] 1 tab PO BID Discharge Medication List Levothyroxine Sodium [Synthroid] 112 mcg PO QAM 01/28/17 [History] Aspirin 81 mg PO HS 02/02/17 [History] Acetaminophen Tab [Tylenol Tab] 500 mg PO Q6H 05/19/18 [History] C,E,Zinc,Copper 11/Hhgbt6p/Lut [Ocuvite Adult 50 Plus Softgel] 1 each PO QAM 05/19/18 [History] Cholecalciferol [Vitamin D3] 1,000 unit PO HS 05/19/18 [History] Atenolol [Tenormin] 25 mg PO HS 04/25/19 [History] Omeprazole 40 mg PO QAM 04/25/19 [History] Amoxicillin/Potassium Clav [Augmentin 875-125 Tablet] 1 tab PO BID 07/17/19 [History] methylPREDNISolone [Medrol Dose Pack] 4 mg PO DIRECTED 07/17/19 [History] Follow up Appointment(s)/Referral(s): Yaima Jenkins MD [STAFF PHYSICIAN] - 1 Week Activity/Diet/Wound Care/Special Instructions: do not drive for 24 hours wear bra at all times may shower after 48 hours Discharge Disposition: HOME SELF-CARE
--- NOTE | 2019-07-18 14:30 | P.NAPBC ---
NAPBC Queries - NAPBC Queries Was patient's case review presented at [facility] tumor board? If no, comment.: Yes Was patient's pathology reviewed at [facility]? If no, comment.: Yes Was breast conservation surgery offered? If no, comment.: Yes Was sentinel node biopsy offered? If no, comment.: Yes Was diagnosis confirmed by percutaneous core biopsy? If no, comment.: Yes Is patient mastectomy patient?: No Was a preop referral to reconstructive surgeon offered?: No Clinical Stage: Stage 0
[2019-07-18 14:42] VITALS: TEMP 97.2
--- NOTE | 2019-07-18 14:51 | MM ---
EXAMINATION TYPE: MG pre op needle loc RT, MG surgical specimen RT DATE OF EXAM: 07/18/2019 11:57 AM COMPARISON: NONE HISTORY: Right breast malignancy Informed consent was obtained and all the patient's questions were answered. The clip in question was localized mammographically. The standard sterile technique was utilized, as well as appropriate local anesthesia with 1% Lidocaine. Localization needle followed by placement of a guidewire was performed under mammographic guidance. Verification images demonstrate appropriate deployment of the guidewire. The patient tolerated the procedure well and left the department in stable condition. Specimen radiograph demonstrates the clip in question to reside within the specimen. IMPRESSION: Successful needle localization and open biopsy right breast with pathology results pending . Pathology Results: Malignant A. SENTINEL LYMPH NODE #1, BIOPSY: Lymph node with extensive fat replacement, negative for metastatic malignancy. CK7 and TAMEKA immunoperoxidase stains are confirmatory (controls appropriate). B. RIGHT AXILLARY CONTENTS: Two lymph nodes negative for metastasis. C. DE-EPITHELIALIZED TISSUE, RIGHT BREAST: Benign skin. D. RIGHT BREAST TISSUE, LUMPECTOMY: Ductal carcinoma in situ (DCIS), Grade 2- 3, involving the inked anterior and posterior margins. See Surgical Pathology Cancer Case Summary. Recommendation Surgical consult of the right breast. Continued surgical management for margins. MTDD
[2019-07-18] MEDS: LABETALOL SYRINGE 5 MG/ML IVP ONE ×2 (14:57→15:02)
[2019-07-18] MEDS: HYDROmorphone 1 MG/ML 1 ML SYRINGE IVP ONE ×2 (15:14→15:21)
[2019-07-18 15:35] VITALS: RESP 16
[2019-07-18 17:51] VITALS: BP 160/79; PULSE 71
== END 2019-07-18 17:55 | disposition home or self-care (01) ==
LOC: OR 09:54
PROVIDERS: ATTEND Surgery
DX: C50.911 Malignant neoplasm of unspecified site of right female breast (principal); Z17.0 Estrogen receptor positive status [ER+]; I10 Essential (primary) hypertension; E78.00 Pure hypercholesterolemia, unspecified; K22.4 Dyskinesia of esophagus; Z95.5 Presence of coronary angioplasty implant and graft; B37.2 Candidiasis of skin and nail; Z88.1 Allergy status to other antibiotic agents; Z88.5 Allergy status to narcotic agent; I25.2 Old myocardial infarction; Z86.718 Personal history of other venous thrombosis and embolism; M19.90 Unspecified osteoarthritis, unspecified site; F41.9 Anxiety disorder, unspecified; K21.9 Gastro-esophageal reflux disease without esophagitis; E07.9 Disorder of thyroid, unspecified; Z79.82 Long term (current) use of aspirin; Z79.890 Hormone replacement therapy; Z79.899 Other long term (current) drug therapy
CPT/HCPCS: 19301; 38525; 88305; 88342; 88307; 88341; 76098; 38792; A9520; J2250; J1644; J1100 ×2; J2405; J2001; J3010; J1170; J0330; J2704

== ENCOUNTER → 2019-08-15 | Outpatient (CLI) | payer MEDICARE, OTHER | END | disposition home or self-care (01) | LOC: LABWHC1 12:17 | PROVIDERS: ATTEND Psychiatry & Neurology Neurology | DX: E03.9 Hypothyroidism, unspecified (principal) | CPT/HCPCS: 36415; 84439; 84443; 84481 ==

== ENCOUNTER 2019-11-12 15:50 | Emergency (ER) | payer MEDICARE, OTHER ==
[2019-11-12 15:55] VITALS: TEMP 99
[2019-11-12] MEDS ORDERED: SODIUM CHLORIDE 0.9% 1,000 ML IV STA (16:33)
[2019-11-12] MEDS ORDERED: MORPHINE SULFATE 4 MG/ML SYRINGE IVP STA (16:33)
--- NOTE | 2019-11-12 16:36 | ED ---
Chest Pain HPI - General Chief Complaint: Chest Pain Stated Complaint: Chest/ Shoulder Pain Time Seen by Provider: 11/12/19 16:10 Source: patient Mode of arrival: wheelchair Limitations: no limitations - History of Present Illness Initial Comments: Patient is 74-year-old female presenting to emergency Department with a chief complaint of chest pain. Patient reports a history of neurogenic esophagus for which she developed occasional spasms of the esophagus. Patient reports yesterday she began to feel her esophagus is closing while she was eating some meat. Patient reports she has not been able to swallow anything afterwards. Patient states she has not taken her night medication due to the pain. States the pain is 8 out of 10 and is squeezing in nature. Denies taking medication to alleviate the symptoms. He states she was in emergency department about 2 years ago for the exact same symptom and needed a scope to remove the bolus. - Related Data Home Medications Medication Instructions Recorded Confirmed Levothyroxine Sodium [Synthroid] 112 mcg PO QAM 01/28/17 07/27/19 Aspirin 81 mg PO HS 02/02/17 07/27/19 Acetaminophen Tab [Tylenol Tab] 500 mg PO Q6H 05/19/18 07/27/19 C,E,Zinc,Copper 11/Mwyot2j/Lut 1 each PO QAM 05/19/18 07/27/19 [Ocuvite Adult 50 Plus Softgel] Cholecalciferol [Vitamin D3] 1,000 unit PO HS 05/19/18 07/27/19 Atenolol [Tenormin] 25 mg PO HS 04/25/19 07/27/19 Omeprazole 40 mg PO QAM 04/25/19 07/27/19 Allergies Allergy/AdvReac Type Severity Reaction Status Date / Time codeine Allergy Nausea & Verified 11/12/19 15:54 Vomiting Tetracyclines Allergy Rash/Hives Verified 11/12/19 15:54 Review of Systems ROS Statement: Those systems with pertinent positive or pertinent negative responses have been documented in the HPI. ROS Other: All systems not noted in ROS Statement are negative. Past Medical History Past Medical History: Deep Vein Thrombosis (DVT), GERD/Reflux, Hypertension, Myocardial Infarction ([place]), Osteoarthritis (OA), Thyroid Disorder Additional Past Medical History / Comment(s): 2012 DVT RT CALF, "throat spasms r/t neuro esophagus" Last Myocardial Infarction Date:: APPROX 2006 History of Any Multi-Drug Resistant Organisms: None Reported Past Surgical History: Adenoidectomy, Cholecystectomy, Heart Catheterization With Stent, Hysterectomy, Orthopedic Surgery, Tonsillectomy Additional Past Surgical History / Comment(s): COLONOSCOPY, right knee replacement, BSO. BILAT CATARACTS, partial thyroidectomy, lumpectomy, Past Anesthesia/Blood Transfusion Reactions: Previous Problems w/ Anesthesia Additional Past Anesthesia/Blood Transfusion Reaction / Comment(s): "SLOW TO WAKE UP" Date of Last Stent Placement:: 2006 ? Past Psychological History: Anxiety Smoking Status: Never smoker Past Alcohol Use History: Rare Past Drug Use History: None Reported - Past Family History Mother History Unknown: Yes Additional Family Medical History / Comment(s): PT ADOPTED-FAMILY HX UNKNOWN General Exam Limitations: no limitations General appearance: alert, in no apparent distress Head exam: Present: atraumatic, normocephalic, normal inspection Eye exam: Present: normal appearance, PERRL, EOMI Pupils: Present: normal accommodation ENT exam: Present: normal exam, normal oropharynx, mucous membranes moist Neck exam: Present: normal inspection, full ROM. Absent: tenderness Respiratory exam: Present: normal lung sounds bilaterally, chest wall tenderness Cardiovascular Exam: Present: regular rate, normal rhythm, normal heart sounds Extremities exam: Present: normal inspection, full ROM Back exam: Present: normal inspection, full ROM Neurological exam: Present: alert, oriented X3 Psychiatric exam: Present: normal affect, normal mood Skin exam: Present: warm, dry, intact, normal color Course Vital Signs 11/12/19 11/12/19 11/12/19 15:51 16:55 17:00 Temperature 99.0 F Pulse Rate 108 H 92 88 Respiratory 17 20 20 Rate Blood Pressure 182/103 182/96 158/84 O2 Sat by Pulse 94 L 97 97 Oximetry 11/12/19 18:00 Temperature Pulse Rate 85 Respiratory 20 Rate Blood Pressure 150/70 O2 Sat by Pulse 97 Oximetry Chest Pain MDM - Differential Diagnosis Esophageal Spasm - [facility] Patient is 74-year-old female presenting to emergency prompt a chief complaint of chest pain. This appears to be an esophageal foreign body as she developed esophageal spasms after she was eating meat. She has not been able to swallow any liquids or solids for the last 24 hours. Patient was given analgesia, glucagon, anxiolytics in the ED. Attempted to drink charissa macrina. Patient was not able to swallow. Dr. Barajas was consulted and performed an upper GI scope and was able to push the food that was lodged in the distal esophagus. I spoke with her, she suggested a 2 week follow-up for the patient as well as a soft diet for the next few days. Return parameters thoroughly discussed the patient was understanding and agreeable. Case discussed with Disposition Clinical Impression: Esophageal foreign body Disposition: HOME SELF-CARE Condition: Good Instructions (If sedation given, give patient instructions): Esophageal Foreign Body (ED) Additional Instructions: Please eat a soft diet for the next few days. Make sure to chew your food thoroughly before swallowing. Follow-up with in two weeks. Return to emergency department if symptoms worsen. Is patient prescribed a controlled substance at d/c from ED?: No Referrals: Umesh Pan MD [Primary Care Provider] - 1-2 days Time of Disposition: 20:05
[2019-11-12] MEDS ORDERED: GLUCAGON 1 MG/ML VIAL IVP STA (17:02)
[2019-11-12] MEDS ORDERED: NITROGLYCERIN SL TABS 0.4 MG TAB SUBLINGUAL STA (17:02)
[2019-11-12] MEDS ORDERED: DIAZEPAM 5 MG/ML 2 ML INJ IVP STA (17:02)
[2019-11-12] MEDS ORDERED: ENALAPRILAT 1.25 MG/ML 1 ML VIAL IVP STA (17:08)
[2019-11-12] MEDS ORDERED: VERAPAMIL 2.5 MG/ML 2 ML AMP IVP STA ×2 (17:09→17:31)
[2019-11-12] MEDS ORDERED: LABETALOL 5 MG/ML VIAL MDV IVP STA (17:10)
[2019-11-12 17:18] LABS: Basophils % (A) 0 %; Eosinophils # (A) 0.1 k/uL (0-0.7); Eosinophils % (A) 1 %; HCT 43.9 % (34.0-46.0); HGB 14.1 gm/dL (11.4-16.0); Lymphocytes # (A) 1.6 k/uL (1.0-4.8); Lymphocytes % (A) 19 %; MCH 28.7 pg (25.0-35.0); MCHC 32.1 g/dL (31.0-37.0); MCV 89.5 fL (80.0-100.0); Mean Platelet Volume 8.1; Monocytes # (A) 0.5 k/uL (0-1.0); Monocytes % (A) 5 %; Neutrophils # (A) 6.5 k/uL (1.3-7.7); Neutrophils % (A) 73 %; Platelet Count 285 k/uL (150-450); RDW 13.9 % (11.5-15.5); WBC 8.9 k/uL (3.8-10.6)
[2019-11-12 17:29] LABS: INR 0.9 (<1.2); Partial Thromboplastin Time 22.5 sec (22.0-30.0); Prothrombin Time 9.9 sec (9.0-12.0)
[2019-11-12 17:31] LABS: Albumin 4.6 g/dL (3.5-5.0); Potassium 4.2 mmol/L (3.5-5.1); Total Bilirubin 0.6 mg/dL (0.2-1.3); Total Protein 7.8 g/dL (6.3-8.2)
--- NOTE | 2019-11-12 18:08 | XR ---
EXAMINATION TYPE: XR chest 1V portable DATE OF EXAM: 11/12/2019 COMPARISON: 09/21/2011 INDICATION: Foreign body unable to swallow pain between shoulders TECHNIQUE: Single frontal view of the chest is obtained. FINDINGS: The heart size is mildly prominent. The pulmonary vasculature is normal. The lungs are clear. No radiopaque foreign bodies are evident along the expected course of the esophagus. IMPRESSION: 1. Mild cardiomegaly. 2. No radiopaque foreign bodies evident.
[2019-11-12] MEDS ORDERED: SODIUM CHLORIDE 0.9% 500 ML IV ONE (19:24)
[2019-11-12] MEDS ORDERED: LIDOCAINE 1% INJ 10MG/ML (20 ML MDV) ONE (19:25)
[2019-11-12] MEDS ORDERED: PROPOFOL 10 MG/ML 20 ML VIAL IV ONE (19:25)
[2019-11-12 20:19] VITALS: PULSE 88
[2019-11-12 21:02] VITALS: BP 128/61; RESP 18
--- NOTE | 2019-11-13 05:50 | CONS ---
CONSULTATION DATE OF DICTATION: 11/12/2019 REASON FOR CONSULTATION: Acute food impaction. HISTORY OF PRESENT ILLNESS: The patient is a 74-year-old pleasant white female with history of gastroesophageal reflux disease who has been on omeprazole 40 mg daily, came to the emergency room complaining of cough with some sputum and dysphagia. She had a piece of steak for dinner last night and could not swallow any further. She stayed home for 24 hours, came in the emergency room and she subsequently had Glucagon with no help. Hence we are consulted for EGD in the emergency room for foreign body retrieval. Patient had similar episodes in 2018 and underwent an EGD and was told she has esophageal stricture. She denies any heartburn. She has been on omeprazole 40 mg daily. PAST MEDICAL HISTORY: Hypothyroidism, hypertension, gastroesophageal reflux disease, coronary artery disease. MEDICATIONS: Medications at home include omeprazole, Synthroid, Tylenol p.r.n., levothyroxine, aspirin, vitamin D3. SOCIAL HISTORY: No smoking. No alcohol use. PAST SURGICAL HISTORY: Cholecystectomy, cardiac catheterization with stent placement, hysterectomy, tonsillectomy, and right knee replacement. ALLERGIES: CODEINE and TETRACYCLINE. FAMILY HISTORY: Unremarkable. REVIEW OF SYSTEMS: CARDIOPULMONARY: No chest pain or shortness of breath. GENITOURINARY: No dysuria or hematuria. MUSCULOSKELETAL: Unremarkable. SKIN: Unremarkable. ENDOCRINE: Unremarkable. PSYCHIATRIC: Unremarkable. NEUROLOGY: Unremarkable. ENT/VISION: Unremarkable. CONSTITUTIONAL: No recent weight loss. No fever, chills, night sweats. PHYSICAL EXAMINATION: Blood pressure is 150/70, pulse rate 85, temperature 98d. HEENT EXAMINATION: Unremarkable. Conjunctivae pink. Sclerae anicteric. Oral cavity no lesions. NECK: No JVD or lymph node enlargement. CHEST: Clear to auscultation. HEART: Regular rate and rhythm. ABDOMEN: Soft, nontender, nondistended. Liver and spleen were not palpable. Bowel sounds are positive. No organomegaly. EXTREMITIES: No pedal edema. NEURO: She is alert and oriented x3. No focal deficits. LABS: WBC 8.9, hemoglobin 14, platelets normal. PT/INR is within normal limits. BUN 15, creatinine 0.89. AST, ALT are 39 and 92 respectively. Alkaline phosphatase is 136. IMPRESSION: 1. Acute food impaction in this lady with history of gastroesophageal reflux disease and known history of distal esophageal stricture, presently on omeprazole 40 mg daily presence with acute food impaction. 2. History of hypothyroidism. 3. History of hypertension. 4. Coronary artery disease. RECOMMENDATIONS: Will proceed with emergency upper endoscopy at the bedside in the emergency room. Discussed with the patient risks, benefits and complications of the procedure. Thank you for this consultation. MMDERRICKL / IJN: [id number] /
--- NOTE | 2019-11-13 06:48 | PCN ---
PROCEDURE NOTE DATE OF SERVICE: 11/12/2019. BRIEF HISTORY: Patient is a 74-year-old pleasant white female who came into the emergency room complaining of acute food dysphagia. She ate a piece of steak for dinner last night and she could not swallow any further. She stayed home all day, trying to swallow some water with no help. She came into the emergency room, was given some glucagon with no help. Hence, she is scheduled for an upper endoscopy on an emergency basis In the emergency room. She had a similar episode in 2018. PROCEDURE PERFORMED: EGD with biopsy and foreign body removal. PREOPERATIVE DIAGNOSIS: Acute food impaction. ANESTHESIA: IV sedation per anesthesia. PROCEDURE: After informed consent was obtained from the patient, she was brought into the endoscopy unit. The IV conscious sedation was administered by Anesthesia on a continuous monitor. Initially, the Olympus GIF-180 video endoscope was inserted into the mouth. Esophagus intubated without any difficulty, was gradually advanced into the mid esophagus. There was large amount of retained food particles identified in the mid esophagus. The scope was gently advanced into the distal esophagus and there was a large piece of food impacted in the distal esophagus. Gently using a snare, part of the food was retrieved and subsequently with gentle pressure, I was able to push the rest of the food bolus into the stomach. The scope was advanced into the stomach and duodenum. In the bulb of the duodenum, there was some duodenitis identified. The second part of the duodenum appeared normal. The scope at this time was withdrawn to the stomach, adequately insufflated with air. The mucosa of the antrum, body, cardia appeared normal. On retroflexion in the fundus, there was some retained liquid identified that was aspirated. Scope was then withdrawn to the esophagus. The GE junction was located at 39 cm from the incisors. It appeared very erythematous and mucosal friability with a distal esophageal stricture. Most of the mucosal folds in the mid and distal esophagus appeared very thickened and edematous suspicious for eosinophilic esophagitis and hence biopsies were done from the mid and distal esophagus. The proximal esophagus appeared normal. The patient tolerated the procedure well. IMPRESSION: 1. Distal esophageal food impaction, status post retrieval as described above. 2. Thickened esophageal folds with a distal esophageal stricture, mucosal erythema and friability consistent with reflux esophagitis versus eosinophilic esophagitis status post multiple biopsies. RECOMMENDATIONS: Findings of this examination were discussed with the patient as well as the family. At this time, we will await biopsy results. She was advised to remain on a soft diet, and she was advised to follow up in office in 2 weeks. CISCO / MION: [id number] /
== END 2019-11-12 21:08 | disposition home or self-care (01) ==
LOC: EC 15:50
DX: T18.108A Unspecified foreign body in esophagus causing other injury, initial encounter (principal); M25.519 Pain in unspecified shoulder; K21.9 Gastro-esophageal reflux disease without esophagitis; I10 Essential (primary) hypertension; I25.2 Old myocardial infarction; M19.90 Unspecified osteoarthritis, unspecified site; E07.9 Disorder of thyroid, unspecified; Z95.5 Presence of coronary angioplasty implant and graft; Z96.651 Presence of right artificial knee joint; Z79.890 Hormone replacement therapy; Z79.82 Long term (current) use of aspirin; Z79.899 Other long term (current) drug therapy; Z88.5 Allergy status to narcotic agent; Z88.1 Allergy status to other antibiotic agents; Z53.8 Procedure and treatment not carried out for other reasons
CPT/HCPCS: 36415; 93005; 80053; 85025; 85610; 85730; 71045; 43239; 43247; 99285; 96374; 96375 ×3; 96361 ×2; J2270; J1610; J3360; J2001; J2704; 88305

== ENCOUNTER → 2019-12-20 | Day surgery (SDC) | payer MEDICARE, OTHER ==
[2019-12-18 14:02] VITALS: BMI 30.2
[~2019-12-20] MED LIST changes: -DEXAMETHASONE SOD PHOSPHATE 10 MG/ML 1 ML VIAL IV ONE; -HEPARIN SODIUM,PORCINE 5,000 UNIT/ML 1 ML VIAL SQ ONE; +IV FLUID CONTINUATION 500 ML IV ONE; +LIDOCAINE 1% (10MG/ML) FOR IV START INTRADERMA PRN; -LIDOCAINE 1% 20 ML VIAL (10MG/ML) FOR IV START INTRADERMA PRN; +LIDOCAINE 1% INJ 10MG/ML (20 ML MDV) ONE; +PROPOFOL 10 MG/ML 20 ML VIAL IV ONE; -Pre Op ABX Message 1 EACH MISC MISCELLANE ONE; -fentaNYL (PF) 50 MCG/ML 2 ML AMP IV PRN
[2019-12-20 11:14] VITALS: RESP 16; TEMP 97.7
--- NOTE | 2019-12-20 12:00 | P.PCN ---
Date of Procedure: 12/20/19 Procedure(s) Performed: BRIEF HISTORY: Patient is a 72-year-old, pleasant white female scheduled for an upper endoscopy with possible dilation as a part of evaluation of long-standing history of GERD/eosinophilic esophagitis and intermittent dysphagia to solids. Patient had prior food impaction bleeding EGD with dilation. . PROCEDURE PERFORMED: Esophagogastroduodenoscopy with biopsy and dilation. PREOPERATIVE DIAGNOSIS: GERD/intermittent dysphagia to solids. IV sedation per anesthesia. PROCEDURE: After informed consent was obtained, the patient was brought into the endoscopy unit. IV sedation was administered by Anesthesia under continuous monitoring. Initially the Olympus GIF-140 video endoscope was inserted into the mouth. Esophagus intubated without any difficulty. It was gradually advanced into the stomach and duodenum and carefully examined. The bulb and the second part of the duodenum appeared normal. The scope at this time was withdrawn to the stomach, adequately insufflated with air, and upon careful examination, mucosa of the antrum, body, cardia and the fundus appeared normal. The scope was then withdrawn into the esophagus. The GE junction was located at 39 cm from the incisors. There was a distal esophageal stricture at the GE junction which was dilated using 15 mm TTS balloon for total of 30 seconds. There were thickened esophageal folds noted in the mid and distal esophagus consistent with years of age esophagitis and multiple biopsies were done from this area. The rest of the esophagus appeared normal. There were no erosions or ulcerations seen and the patient tolerated the procedure well. IMPRESSION: 1. Distal esophageal stricture status post balloon dilation using 15 mm TTS balloon. 2. Thickened esophageal folds in the mid and distal esophagus consistent with eosinophilic esophagitis status post biopsy. RECOMMENDATIONS: The findings of this examination were discussed with the patient as well as her family. She'll remain on a clear liquid diet today. She was advised to increase the omeprazole to 20 mg twice daily and follow antireflux measures. She'll be seen in office in 3-4 weeks..
[2019-12-20 12:28] VITALS: BP 135/82; PULSE 67
== END ==
LOC: ORWHC2ENDO 10:48
PROVIDERS: ATTEND Internal Medicine Gastroenterology
DX: K21.0 Gastro-esophageal reflux disease with esophagitis (principal); I25.10 Atherosclerotic heart disease of native coronary artery without angina pectoris; E89.0 Postprocedural hypothyroidism; Z95.5 Presence of coronary angioplasty implant and graft; Z79.899 Other long term (current) drug therapy; Z79.890 Hormone replacement therapy; Z79.82 Long term (current) use of aspirin; Z88.5 Allergy status to narcotic agent; Z88.1 Allergy status to other antibiotic agents; Z90.49 Acquired absence of other specified parts of digestive tract
CPT/HCPCS: 88305; 43239; 43249; J2001; J2704; C1726

== ENCOUNTER → 2020-01-25 | Outpatient (CLI) | payer MEDICARE, OTHER ==
[2020-01-25 14:12] VITALS: BP 152/81; PULSE 70; RESP 18; TEMP 98.3
--- NOTE | 2020-01-25 14:30 | P.PN ---
Subjective Progress Note Date: 01/25/20 Principal diagnosis: DCIS right breast Rasheeda is a 74-year-old white female status post right sentinel node biopsy and lumpectomy for ductal carcinoma in situ on 07-18-19. Pathology revealed DCIS at anterior and posterior margins. Posteriorly we were at the pectoralis major muscle and anteriorly skin was taken. The results were discussed with radiation oncology and it is not felt that further resection is necessary. She is not complaining of any lumps masses or nodules in her breasts. No nipple discharge or skin changes for which she is concerned. No history of any recent trauma or infection of the breast. She completed 20 treatments of radiation therapy in September 2019. She is presently on Aromasin, she is complaining of joint pain since she started this. She did not have any chemotherapy. Family history: Unknown patient is adopted Hormonal history: Menarche: 16 , breast fed: no, age at first 26 menopause: hysterectomy mid 30's (total done for bleeding) BCP: 1 year hormones: none Surgical history: 1. Total abdominal hysterectomy 2. Right breast lumpectomy and sentinel node biopsy 3. Surgeries 4. Cholecystectomy 5. Tonsillectomy 6. Balloon dilation of the esophagus done twice 7. Parathyroid surgery 8. Bilateral elbow tendon surgery 9. Knee replacement 10. cardiac stent Medical History: Hypothyroid Hypertension Social History: Nicotine: Negative Alcohol: Negative Drugs: Negative Review of systems: HEENT: Wears glasses, otherwise negative Lungs: Negative Cardiac: Hypertension, cardiac stent GI: Negative : Status post total abdominal hysterectomy Musculoskeletal: Joint pain possibly related to the Aromasin neurologic: Negative Hematologic: Baby aspirin daily ALLERGIES: As per HPI Objective - Vital Signs Vital signs: Vital Signs Temp 98.3 F 01/25/20 14:09 Pulse 70 01/25/20 14:09 Resp 18 01/25/20 14:09 BP 152/81 01/25/20 14:09 Pulse Ox 99 01/25/20 14:09 Intake & Output 01/24/20 01/25/20 01/25/20 18:59 06:59 18:59 Weight 73.936 kg - Exam BMI 29.8 - Constitutional General appearance: Present: average body habitus - EENT Eyes: Present: EOMI ENT: Present: hearing grossly normal - Neck Neck: Present: normal ROM - Respiratory Respiratory: bilateral: CTA - Cardiovascular Rhythm: regular Heart sounds: normal: S1, S2 - Gastrointestinal General gastrointestinal: Present: normal bowel sounds, soft - Integumentary Integumentary: Present: normal turgor - Musculoskeletal Musculoskeletal: Present: gait normal - Psychiatric Psychiatric: Present: A&O x's 3, appropriate affect, intact judgment & insight - Additional findings Additional findings: Breast exam: BRA 38D inspection: ptosis right breast grade 2, left breast grade 3 Patient: Right breast: Well-healed scar from prior surgery, multiple positional exam no dominant masses or nodules of concern, mild tender in the 12 o'clock position to palpation Right axilla: No adenopathy of concern Left breast: Multi-positional exam no dominant masses or nodules of concern, fibrocystic changes Left axilla: No adenopathy of concern Assessment and Plan Assessment: Impression: 1. Patient status post lumpectomy/sentinel node biopsy right breast for ductal carcinoma in situ 2. Status post radiation therapy to the right breast 3. Joint pain on Aromasin 4. History of hypertension 5. History of cardiac stent Plan: 1. Patient to have bilateral mammogram April with physician exam here at that time 2. Patient is going to discuss stopping Aromasin with medical oncology secondary to her joint discomfort CC: Dr. Pan encounter 20 minutes, > 50% of time in planning and counselling
== END | disposition home or self-care (01) ==
LOC: WWCWWP 13:55
PROVIDERS: ATTEND Surgery
DX: Z53.9 Procedure and treatment not carried out, unspecified reason (principal)

== ENCOUNTER → 2020-02-14 | Outpatient (CLI) | payer MEDICARE, OTHER ==
--- NOTE | 2020-02-14 12:39 | XR ---
EXAMINATION TYPE: XR wrist complete RT DATE OF EXAM: 02/14/2020 COMPARISON: NONE HISTORY: Pain TECHNIQUE: Four views submitted. FINDINGS: The osseous structures are intact. The joint spaces are preserved and there is no acute fracture or dislocation. Sprain involving the scaphoid noted. IMPRESSION: 1. No definite acute fracture or dislocation if symptoms persist, follow-up study in 7 to 10 days wo uld be suggested
== END | disposition home or self-care (01) ==
LOC: RADXRMAIN 12:02
PROVIDERS: ATTEND Nurse Practitioner Family
DX: M25.531 Pain in right wrist (principal)

== ENCOUNTER → 2020-03-18 | Outpatient (CLI) | payer MEDICARE, OTHER ==
--- NOTE | 2020-03-18 11:51 | MM ---
Reason for exam: follow-up at short interval from prior study. Last mammogram was performed 10 months ago. History: Patient is postmenopausal and has history of breast cancer at age 74. Malignant MG pre op needle loc RT of the right breast, July 18, 2019. Lumpectomy of the right breast, July 18, 2019. Malignant MG stereo VAD BX RT of the right breast, May 11, 2019. Taking other hormone for 8 months. Physical Findings: Nurse did not find any significant physical abnormalities on exam. MG 3D Diag Mammo W/Cad LEEROY Bilateral CC and MLO view(s) were taken. Prior study comparison: May 10, 2019, bilateral MG 3d diag mammo w/cad LEEROY. March 30, 2018, mammogram. June 15, 2016, mammogram. The breast tissue is heterogeneously dense. This may lower the sensitivity of mammography. Post surgical and post therapy change right breast. Stable regional calcifications left breast. These results were verbally communicated with the patient and result sheet given to the patient on 03/18/20. ASSESSMENT: Probably benign, BI-RAD 3 RECOMMENDATION: Follow-up diagnostic mammogram of the right breast in 6 months.
== END | disposition home or self-care (01) ==
LOC: RADMAMWWP 08:10
PROVIDERS: ATTEND Surgery
DX: Z08 Encounter for follow-up examination after completed treatment for malignant neoplasm (principal); Z85.3 Personal history of malignant neoplasm of breast
CPT/HCPCS: 77066; G0279; 77062

== ENCOUNTER → 2020-03-28 | Outpatient (CLI) | payer MEDICARE, OTHER ==
[2020-03-28 08:51] VITALS: BP 172/91; PULSE 64; RESP 18; TEMP 98.6
--- NOTE | 2020-03-28 09:12 | P.PN ---
Subjective Progress Note Date: 03/28/20 Principal diagnosis: DCIS right breast DCIS right breast Rasheeda is a 74-year-old white female status post right sentinel node biopsy and lumpectomy for ductal carcinoma in situ on 07-18-19. Pathology revealed DCIS at anterior and posterior margins. Posteriorly we were at the pectoralis major muscle and anteriorly skin was taken. The results were discussed with radiation oncology and it is not felt that further resection is necessary. She is not complaining of any lumps masses or nodules in her breasts. No nipple discharge or skin changes for which she is concerned. No history of any recent trauma or infection of the breast. She completed 20 treatments of radiation therapy in September 2019. She is presently on Aromasin, she is complaining of joint pain since she started this. He has discussed this with medical oncology and was instructed to take Tylenol. She is continuing to take the Aromasin. She states the pain is worse in her elbows and her ankles. She did not have any chemotherapy. She had a bilateral mammogram performed on . This was felt to be probably benign BIRADS 3. Follow-up diagnostic mammogram of the right breast in 6 months was recommended. Family history: Unknown patient is adopted Hormonal history: Menarche: 16 , breast fed: no, age at first 26 menopause: hysterectomy mid 30's (total done for bleeding) BCP: 1 year hormones: none Surgical history: 1. Total abdominal hysterectomy 2. Right breast lumpectomy and sentinel node biopsy 3. Surgeries 4. Cholecystectomy 5. Tonsillectomy 6. Balloon dilation of the esophagus done twice 7. Parathyroid surgery 8. Bilateral elbow tendon surgery 9. Knee replacement 10. cardiac stent Medical History: Hypothyroid Hypertension Joint pain related to Aromasin Social History: Nicotine: Negative Alcohol: Negative Drugs: Negative Review of systems: HEENT: Wears glasses, otherwise negative Lungs: Negative Cardiac: Hypertension, cardiac stent GI: Negative : Status post total abdominal hysterectomy Musculoskeletal: Joint pain possibly related to the Aromasin neurologic: Negative Hematologic: Baby aspirin daily ALLERGIES: As per HPI Objective - Vital Signs Vital signs: Vital Signs Temp 98.6 F 03/28/20 08:48 Pulse 64 03/28/20 08:48 Resp 18 03/28/20 08:48 BP 172/91 03/28/20 08:48 Pulse Ox 95 03/28/20 08:48 Intake & Output 03/27/20 03/28/20 03/28/20 18:59 06:59 18:59 Weight 75.296 kg - Exam BMI 30.4 - Constitutional General appearance: Present: average body habitus - EENT Eyes: Present: EOMI ENT: Present: hearing grossly normal - Neck Neck: Present: normal ROM - Respiratory Respiratory: bilateral: CTA - Cardiovascular Rhythm: regular Heart sounds: normal: S1, S2 - Gastrointestinal General gastrointestinal: Present: normal bowel sounds, soft - Integumentary Integumentary: Present: normal turgor - Musculoskeletal Musculoskeletal: Present: gait normal - Psychiatric Psychiatric: Present: A&O x's 3, appropriate affect, intact judgment & insight - Additional findings Additional findings: breast: BRA: 40C inspection: grade 2 ptosis bilateral; fungal infection under each breast palpation: right breast: post op changes, radiation changes, multiple positional exam well- healed scar noted dominant masses or nodules of concern Right axilla: No adenopathy of concern Left breast: Multiple positional exam fibrocystic changes, no dominant masses or nodules of concern Left axilla: No adenopathy of concern Assessment and Plan Assessment: Impression: 1. DCIS right breast/status post right lumpectomy and sentinel node biopsy, anterior and posterior margins were positive posterior margin was on the pectoralis muscle and the anterior margin skin was taken the patient received radiation therapy and is presently on Aromasin is being followed closely 2. Recent bilateral mammogram repeat right breast mammogram in 6 months 3. Hypertension 4. Hypothyroidism 5. Joint pain related to the Aromasin Plan: 1. Patient is given a prescription for nystatin secondary to the fungal infection 2. Repeat right breast mammogram in 6 months with physician exam at that time 3. Continue Aromasin 4. Continue follow-up with medical and radiation oncology 5. Follow-up 4 months for physician exam Cc: Dr. Umesh Pan encounter 20 minutes, > 50% of time in planning and counselling
== END | disposition home or self-care (01) ==
LOC: WWCWWP 08:36
PROVIDERS: ATTEND Surgery
DX: Z53.9 Procedure and treatment not carried out, unspecified reason (principal)

== ENCOUNTER → 2020-06-19 | Outpatient (CLI) | payer MEDICARE, OTHER ==
--- NOTE | 2020-06-19 15:02 | BD ---
EXAMINATION TYPE: Axial Bone Density DATE OF EXAM: 06/19/2020 COMPARISON: NONE CLINICAL HISTORY: Breast cancer. Postmenopausal female. Height: 61 IN Weight: 169 LBS FRAX RISK QUESTIONS: Secondary Osteoporosis: 3. Menopause before 45: PARTIAL HYST AGE 39 RISK FACTORS HISTORY OF: Active: YES Postmenopausal woman: PARTIAL HYST AGE 39 MEDICATIONS: Thyroid Medications: YES Which medication: Levothyroxine How Lon+ YEARS Additional Medications: CALCIUM, VIT D, AROMASIN, LEVOTHYROXINE, BYSTOLIC, BENAZAPRIL, HCTZ, ATORVAST ATIN, OMEPRAZOLE, ASPIRIN, Additional History: BREAST CANCER WITH RADIATION 2020 EXAM MEASUREMENTS: Bone mineral densitometry was performed using the [employer] System. Bone mineral density as measured about the Lumbar spine is: ----- L1-L4(G/cm2): 1.199 T Score Values are as follows: ----- L2: 0.3 ----- L3: 1.4 ----- L4: -0.8 ----- L1-L4: 0.2 Bone mineral density BASELINE Bone mineral density about the R hip (g/cm2): 0.792 Bone mineral density about the L hip (g/cm2): 0.819 T Score values are as follows: -----R Neck: -1.8 -----L Neck: -1.6 -----R Total: -1.1 -----L Total: -0.9 Bone mineral density BASELINE IMPRESSION: Osteopenia (T Score between -2.5 and -1). There is slightly increased risk of fracture and the patient may be considered for treatment. Re-Screen 2-5 years. NOTE: T-SCORE=SD OF THE YOUNG ADULT MEAN.
== END | disposition home or self-care (01) ==
LOC: RADBDWWP 12:59
PROVIDERS: ATTEND Internal Medicine Hematology & Oncology
DX: M85.80 Other specified disorders of bone density and structure, unspecified site (principal); C50.411 Malignant neoplasm of upper-outer quadrant of right female breast; Z88.5 Allergy status to narcotic agent; Z88.1 Allergy status to other antibiotic agents; Z79.890 Hormone replacement therapy
CPT/HCPCS: 77080

== ENCOUNTER → 2020-07-29 | Outpatient (CLI) | payer MEDICARE, OTHER ==
[2020-07-29 15:37] LABS: Chol/HDL Ratio 3.82
== END | disposition home or self-care (01) ==
LOC: LABWHC1 09:54
PROVIDERS: ATTEND Internal Medicine Cardiovascular Disease
DX: E78.2 Mixed hyperlipidemia (principal)
CPT/HCPCS: 36415; 80061; 84450; 84460

== ENCOUNTER → 2020-08-01 | Outpatient (CLI) | payer MEDICARE, OTHER ==
[2020-08-01 12:00] VITALS: BP 122/81; PULSE 70; RESP 18; TEMP 98.5
--- NOTE | 2020-08-01 12:36 | P.PN ---
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 Pathology revealed DCIS at anterior and posterior margins. Posteriorly we were at the pectoralis major muscle and anteriorly skin was taken. The results were discussed with radiation oncology and it is not felt that further resection is necessary. She is not complaining of any lumps masses or nodules in her breasts. No nipple discharge or skin changes for which she is concerned. No history of any recent trauma or infection of the breast. She completed 20 treatments of radiation therapy in September 2019. She is presently on Aromasin, she is complaining of joint pain since she started this. She has discussed this with medical oncology and was instructed to take Tylenol. She is continuing to take the Aromasin. She states the pain is worse in her elbows and her ankles but this has improved. She is on cymbalta. She did not have any chemotherapy. She had a bilateral mammogram performed on . This was felt to be probably benign BIRADS 3. This revelaed stable left breast calcifications, and post surgical changes of the right breast. Follow-up diagnostic mammogram of the right breast in 6 months was recommended. She has asymmetry of the breast related to the prior cancer surgery, with difference in nipple position related to the cancer surgery. This makes fitting clothes difficult. Patient was last seen by radiation oncology on . Note from Dr. Manuel Moreno was reviewed. He continues to follow and she is also being followed by medical oncology. Right breast mammogram is due in September of 2020. Family history: Unknown patient is adopted Hormonal history: Menarche: 16 , breast fed: no, age at first 26 menopause: hysterectomy mid 30's (total done for bleeding) BCP: 1 year hormones: none Surgical history: 1. Total abdominal hysterectomy 2. Right breast lumpectomy and sentinel node biopsy 3. Surgeries 4. Cholecystectomy 5. Tonsillectomy 6. Balloon dilation of the esophagus done twice 7. Parathyroid surgery 8. Bilateral elbow tendon surgery 9. Knee replacement 10. cardiac stent Medical History: Hypothyroid Hypertension Joint pain related to Aromasin improving on cymbalta Social History: Nicotine: Negative Alcohol: Negative Drugs: Negative Review of systems: HEENT: Wears glasses, otherwise negative Lungs: Negative Cardiac: Hypertension, cardiac stent GI: Negative : Status post total abdominal hysterectomy Musculoskeletal: Joint pain possibly related to the Aromasin neurologic: Negative Hematologic: Baby aspirin daily ALLERGIES: As per HPI Objective - Vital Signs Vital signs: Vital Signs Temp 98.5 F 08/01/20 11:56 Pulse 70 08/01/20 11:56 Resp 18 08/01/20 11:56 BP 122/81 08/01/20 11:56 Pulse Ox 95 08/01/20 11:56 Intake & Output 07/31/20 08/01/20 08/01/20 18:59 06:59 18:59 Weight 76.657 kg - Exam BMI 31.9 - Constitutional General appearance: Present: average body habitus - EENT Eyes: Present: EOMI ENT: Present: hearing grossly normal - Neck Neck: Present: normal ROM - Respiratory Respiratory: bilateral: CTA - Cardiovascular Rhythm: regular Heart sounds: normal: S1, S2 - Gastrointestinal General gastrointestinal: Present: soft - Integumentary Integumentary: Present: normal turgor - Musculoskeletal Musculoskeletal: Present: gait normal - Psychiatric Psychiatric: Present: A&O x's 3, appropriate affect, intact judgment & insight - Additional findings Additional findings: Breast exam: BRA: 40C inspection: Right breast smaller than left breast secondary to prior surgery, grade 2 ptosis right, grade 3 ptosis left Palpation: Right breast: Multi-positional exam well-healed scar from prior surgery no dominant masses or nodules of concern Right axilla: No adenopathy of concern Left breast: Multi-positional exam fibrocystic changes, no dominant masses or nodules of concern Left axilla: No adenopathy of concern Fungal infection under the right breast Assessment and Plan Assessment: Impression: 1. right breast prior lumpectomy for DCIS 2. right breast mammogram due in September 2020 3. Asymmetry of nipple areolar complex of the breast related to prior cancer surgery 4. Hypo-thyroid 5. Hypertension 6. Joint pain related to Aromasin improving Plan: 1. Right breast mammogram in September 2020 2. Continue Cymbalta 3. Nystatin for fungal infection under right breast 4. Left breast mastopexy Risk and benefits of mastopexy were discussed with the patient. We have also discussed a mammoplasty however she would prefer to just have a mastopexy done. Risks include but are not limited to bleeding infection, reaction to the anesthetic. She may have some decreased sensation to the nipple areolar complex. She understands and wishes to proceed. Given the option of seeing a plastic surgeon and declined. She understands the breast will not be exactly the same but will be much similar them they are now. The patient was marked in the office and pictures were obtained. Cc: Dr. Umesh Pan Encounter 35 minutes, time spent in reviewing medical records, physical examination, and counseling.
== END | disposition home or self-care (01) ==
LOC: WWCWWP 11:34
PROVIDERS: ATTEND Surgery
DX: D05.11 Intraductal carcinoma in situ of right breast (principal); N64.89 Other specified disorders of breast; M25.59 Pain in other specified joint; E03.9 Hypothyroidism, unspecified; I10 Essential (primary) hypertension

== ENCOUNTER → 2020-10-04 | Outpatient (CLI) | payer MEDICARE, OTHER ==
--- NOTE | 2020-10-04 14:05 | MM ---
Reason for exam: follow-up at short interval from prior study. Last mammogram was performed 7 months ago. History: Patient is postmenopausal and has history of breast cancer at age 74. Malignant MG pre op needle loc RT of the right breast, July 18, 2019. Lumpectomy of the right breast, July 18, 2019. Malignant MG stereo VAD BX RT of the right breast, May 11, 2019. Taking other hormone beginning at age 74. Physical Findings: Nurse did not find any significant physical abnormalities on exam. MG 3D Diag Mammo W/Cad RT CC and MLO view(s) were taken of the right breast. Prior study comparison: March 18, 2020, bilateral MG 3d diag mammo w/cad LEEROY. May 10, 2019, bilateral MG 3d diag mammo w/cad LEEROY. The breast tissue is heterogeneously dense. This may lower the sensitivity of mammography. Stable benign calcifications. Stable post operative distortion. These results were verbally communicated with the patient and result sheet given to the patient on 10/04/20. ASSESSMENT: Benign, BI-RAD 2 RECOMMENDATION: Follow-up diagnostic mammogram of both breasts in 6 months.
== END | disposition home or self-care (01) ==
LOC: RADMAMWWP 13:02
PROVIDERS: ATTEND Surgery
DX: R92.1 Mammographic calcification found on diagnostic imaging of breast (principal)
CPT/HCPCS: 77065; G0279; 77061

== ENCOUNTER → 2020-10-10 | Outpatient (CLI) | payer MEDICARE, OTHER ==
[2020-10-10 13:21] VITALS: BP 176/87; PULSE 77; RESP 18; TEMP 98.6
--- NOTE | 2020-10-10 13:37 | P.PN ---
Subjective Progress Note Date: 10/10/20 Principal diagnosis: Asymmetry of the breast related to prior lumpectomy of the right breast for DCIS DCIS right breast Rasheeda is a 75-year-old white female status post right sentinel node biopsy and lumpectomy for ductal carcinoma in situ on 07-18-19. Pathology revealed DCIS at anterior and posterior margins. Posteriorly we were at the pectoralis major muscle and anteriorly skin was taken. The results were discussed with radiation oncology and it is not felt that further resection is necessary. She is not complaining of any lumps masses or nodules in her breasts. No nipple discharge or skin changes for which she is concerned. No history of any recent trauma or infection of the breast. She completed 20 treatments of radiation therapy in September 2019. She is presently on Aromasin, she is complaining of joint pain since she started this but this has improved. She has discussed this with medical oncology and was instructed to take Tylenol. She is complainingo fpain in the left knee. She is continuing to take the Aromasin. She is on cymbalta. She did not have any chemotherapy. She had a bilateral mammogram on . This was felt to be probably benign however repeat right breast mammogram in 6 months was recommended. This was most recently done on and was benign BIRADS 2. She is due for bilateral mammogram in 6 months. She has asymmetry of the breast related to the prior cancer surgery, with difference in nipple position related to the cancer surgery. This makes fitting clothes difficult. Patient was last seen by radiation oncology on . Note from Dr. Manuel Moreno was reviewed. He continues to follow and she is also being followed by medical oncology. Note from Dr. Bradford on reviewed Right breast mammogram is due in September of 2020. Family history: Unknown patient is adopted Hormonal history: Menarche: 16 , breast fed: no, age at first 26 menopause: hysterectomy mid 30's (total done for bleeding) BCP: 1 year hormones: none Surgical history: 1. Total abdominal hysterectomy 2. Right breast lumpectomy and sentinel node biopsy 3. Surgeries 4. Cholecystectomy 5. Tonsillectomy 6. Balloon dilation of the esophagus done twice 7. Parathyroid surgery 8. Bilateral elbow tendon surgery 9. Knee replacement 10. cardiac stent Medical History: Hypothyroid Hypertension Joint pain related to Aromasin improving on cymbalta Social History: Nicotine: Negative Alcohol: Negative Drugs: Negative Review of systems: HEENT: Wears glasses, otherwise negative Lungs: Negative Cardiac: Hypertension, cardiac stent GI: Negative : Status post total abdominal hysterectomy Musculoskeletal: Joint pain possibly related to the Aromasin neurologic: Negative Hematologic: Baby aspirin daily ALLERGIES: As per HPI At this time the patient is going to postpone the mastopexy of the left breast secondary to pain in her left knee for which she has seen orthopedic surgery. She will be scheduled the mastopexy at a later time. CC; Dr. Umesh Pan Objective - Vital Signs Vital signs: Vital Signs Temp 98.6 F 10/10/20 13:18 Pulse 77 10/10/20 13:18 Resp 18 10/10/20 13:18 BP 176/87 10/10/20 13:18 Pulse Ox 97 10/10/20 13:18 Intake & Output 10/09/20 10/10/20 10/10/20 18:59 06:59 18:59 Weight 75.296 kg
== END ==
LOC: WWCWWP 12:49
PROVIDERS: ATTEND Surgery
DX: Z08 Encounter for follow-up examination after completed treatment for malignant neoplasm (principal); E03.9 Hypothyroidism, unspecified; I10 Essential (primary) hypertension; Z92.3 Personal history of irradiation; Z85.3 Personal history of malignant neoplasm of breast; Z98.890 Other specified postprocedural states

== ENCOUNTER → 2020-11-14 | Outpatient (CLI) | payer MEDICARE, OTHER ==
[2020-11-14 15:27] VITALS: BP 170/72; PULSE 63; RESP 18; TEMP 98.5
--- NOTE | 2020-11-14 16:00 | P.PN ---
Subjective Progress Note Date: 11/14/20 Principal diagnosis: asymmetry of the breast related to lumpectomy of the right breast for DCIS/Stage 0 DCIS right breast Rasheeda is a 75-year-old white female status post right sentinel node biopsy and lumpectomy for ductal carcinoma in situ on 07-18-19. Pathology reveal ed DCIS at anterior and posterior margins. Posteriorly we were at the pectoralis major muscle and anteriorly skin was taken. The results were discussed with radiation oncology and it is not felt that further resection is necessary. She is not complaining of any lumps masses or nodules in her breasts. No nipple discharge or skin changes for which she is concerned. No history of any recent trauma or infection of the breast. She completed 20 treatments of radiation therapy in September 2019. She is presently on Aromasin, she is complaining of joint pain since she started this but this has improved. She has discussed this with medical oncology and was instructed to take Tylenol. She is continuing to take the Aromasin. She did not have any chemotherapy. She had a bilateral mammogram on . This was felt to be probably benign however repeat right breast mammogram in 6 months was recommended. This was most recently done on and was benign BIRADS 2. She is due for bilateral mammogram in 6 months. She is complaining of discomfort in the right breast at the surgery site for the last week intermittently. She notices that if she bumps the area. It d oes not radiate anyplace. It is not constant. She has asymmetry of the breast related to the prior cancer surgery, with difference in nipple position related to the cancer surgery. This makes fitting clothes difficult. She is still having pain in her left knee. She is going to see orthopedic surgery tomorrow regarding possible left knee replacement. She has already had a right knee replacement in [place] [id number] reviewed Right breast mammogram is due in September of 2020. Family history: Unknown patient is adopted Hormonal history: Menarche: 16 , breast fed: no, age at first 26 menopause: hysterectomy mid 30's (total done for bleeding) BCP: 1 year hormones: none Surgical history: 1. Total abdominal hysterectomy 2. Right breast lumpectomy and sentinel node biopsy 3. Surgeries 4. Cholecystectomy 5. Tonsillectomy 6. Balloon dilation of the esophagus done twice 7. Parathyroid surgery 8. Bilateral elbow tendon surgery 9. Knee replacement 10. cardiac stent Medical History: Hypothyroid Hypertension Joint pain related to Aromasin improving on cymbalta Social History: Nicotine: Negative Alcohol: Negative Drugs: Negative Review of systems: HEENT: Wears glasses, otherwise negative Lungs: Negative Cardiac: Hypertension, cardiac stent GI: Negative : Status post total abdominal hysterectomy Musculoskeletal: Joint pain possibly related to the Aromasin neurologic: Negative Hematologic: Baby aspirin daily ALLERGIES: As per HPI Objective - Vital Signs Vital signs: Vital Signs Temp 98.5 F 11/14/20 15:25 Pulse 63 11/14/20 15:25 Resp 18 11/14/20 15:25 BP 170/72 11/14/20 15:25 Pulse Ox 96 11/14/20 15:25 Intake & Output 11/13/20 11/14/20 11/14/20 18:59 06:59 18:59 Weight 75.296 kg - Exam BMI: 30.4 - Constitutional General appearance: Present: cooperative - EENT Eyes: Present: EOMI ENT: Present: hearing grossly normal - Neck Neck: Present: normal ROM - Respiratory Respiratory: bilateral: CTA - Cardiovascular Heart sounds: normal: S1, S2 - Gastrointestinal General gastrointestinal: Present: soft - Integumentary Integumentary: Present: normal turgor - Musculoskeletal Musculoskeletal: Present: gait normal - Psychiatric Psychiatric: Present: A&O x's 3, appropriate affect, intact judgment & insight - Additional findings Additional findings: Breast exam: BRA: 40C inspection: Right breast grade 2 ptosis Left breast grade 3 ptosis Palpation: Right breast multiple positional exam changes related to scar from surgery and radiation no dominant masses or nodules of concern Right axilla: No adenopathy of concern Left breast larger than right breast multiple positional exam fibrocystic changes, no dominant masses or nodules of concern Left axilla: No adenopathy of concern Assessment and Plan Assessment: Impression: Hypothyroid Hypertension Joint pain related to Aromasin improving on cymbalta Asymmetry of the breast related to prior right breast lumpectomy Right breast lumpectomy sentinel node biopsy/radiation therapy for stage 0 right breast cancer Plan: 1. At this time patient is going to have a mastopexy of the left breast secondary to asymmetry 2. Clearance from Dr. Umesh Pan 3. Continue Aromasin 4. Patient continues to follow with orthopedic surgery regarding her left knee Mastopexy left breast secondary to asymmetry related to lumpectomy for ductal carcinoma in situ. The patient understands that the breast will not be exactly the same size in the left breast is slightly larger than the right breast. She understands risk of the procedure bleeding, infection, reaction to the anesthetic. She is given the option to see a plastic surgeon if she would like to and has opted to have the procedure done here.
== END ==
LOC: WWCWWP 14:55
PROVIDERS: ATTEND Surgery
DX: D05.11 Intraductal carcinoma in situ of right breast (principal); N64.89 Other specified disorders of breast; E03.9 Hypothyroidism, unspecified; M25.50 Pain in unspecified joint; I10 Essential (primary) hypertension; Z92.3 Personal history of irradiation; Z79.811 Long term (current) use of aromatase inhibitors; Z88.1 Allergy status to other antibiotic agents; Z88.5 Allergy status to narcotic agent

== ENCOUNTER 2020-11-26 07:11 | Day surgery (SDC) | payer MEDICARE, OTHER ==
[2020-11-22 15:49] VITALS: BMI 30.2
[~2020-11-26 07:11] MED LIST changes: +DEXAMETHASONE SOD PHOSPHATE 4 MG/ML 1 ML VIAL IV ONE; +HEPARIN SODIUM,PORCINE/PF 5,000 UNIT/0.5 ML SYRINGE SQ PRN; -IV FLUID CONTINUATION 500 ML IV ONE; -LIDOCAINE 1% (10MG/ML) FOR IV START INTRADERMA PRN; -LIDOCAINE 1% INJ 10MG/ML (20 ML MDV) ONE; +MIDAZOLAM 2 MG/2 ML VIAL IV PRN; +ONDANSETRON 4 MG/2 ML VIAL IVP ONE; -PROPOFOL 10 MG/ML 20 ML VIAL IV ONE; +Pre Op ABX Message 1 EACH MISC MISCELLANE ONE; +fentaNYL (PF) 50 MCG/ML 2 ML AMP IV PRN
[2020-11-26] MEDS ORDERED: LIDOCAINE 1% (10MG/ML) FOR IV START INTRADERMA ONE (07:50)
[2020-11-26] MEDS ORDERED: PROPOFOL 10 MG/ML 20 ML VIAL IV ONE (09:10)
[2020-11-26] MEDS ORDERED: MIDAZOLAM 2 MG/2 ML VIAL ONE (09:10)
[2020-11-26] MEDS ORDERED: fentaNYL (PF) 50 MCG/ML 2 ML AMP ONE (09:10)
[2020-11-26] MEDS ORDERED: SUCCINYLCHOLINE CHLORIDE 100 MG/5 ML SYR IV ONE (09:10)
[2020-11-26] MEDS ORDERED: LIDOCAINE 1% INJ 10MG/ML (20 ML MDV) ONE (09:10)
[2020-11-26] MEDS ORDERED: SODIUM CHLORIDE 0.9% 50 ML with ceFAZolin 2,000 MG IV ONE ×2 (09:34)
[2020-11-26] MEDS ORDERED: LIDOCAINE 1% INJ 10MG/ML (20 ML MDV) SQ ONE (09:54)
--- NOTE | 2020-11-26 10:09 | P.OP ---
Date of Procedure: 11/26/20 Preoperative Diagnosis: Asymmetry between the right and left breast secondary to prior right breast cancer surgery Postoperative Diagnosis: Same Procedure(s) Performed: Mastopexy left breast Anesthesia: BEATRICE Surgeon: Yaima Jenkins Estimated Blood Loss (ml): 5 IV fluids (ml): 600 Pathology: other (De-epithelialized skin) Condition: stable Disposition: same day Indications for Procedure: Asymmetry between the breast related to prior right breast cancer surgery Operative Findings: De-epithelialized skin Description of Procedure: Rasheeda is a 75-year-old white female who underwent a right breast lumpectomy for invasive ductal carcinoma. She subsequently had radiation therapy and had asymmetry between the location of the nipple areolar complex on the right and left. This caused concern for the patient and she opted for a left breast mastopexy. In the preoperative area the left breast was marked. The nipple areolar complex was approximately 2-1/2 cm lower than that on the right and the skin margins for a crescent mastopexy incision was placed. The patient was then brought to the operative suite. Following induction of anesthesia both breasts were prepped and draped in a sterile fashion. Using the skin markings the crescent was de epithelialized. The skin was then closed using deep 3-0 Vicryl sutures. This is followed by running 4-0 Monocryl. This was followed by a skin nylon suture. The patient tolerated the procedure in stable condition. The elevation of the crescent was approximately 2 and half to 3 cm in height at the meridian line..
--- NOTE | 2020-11-26 10:36 | P.DS ---
Providers Attending physician: Yaima Jenkins Primary care physician: Umesh Pan Plan - Discharge Summary Discharge Rx Participant: No New Discharge Prescriptions: No Action Levothyroxine Sodium [Synthroid] 75 mcg PO QAM Aspirin 81 mg PO HS Acetaminophen Tab [Tylenol Tab] 500 mg PO Q6H Cholecalciferol [Vitamin D3] 2,000 unit PO HS C,E,Zinc,Copper 11/[id number]/Lut [Ocuvite Adult 50 Plus Softgel] 1 each PO QAM Omeprazole 20 mg PO BID Benazepril HCl [Lotensin] 40 mg PO HS Exemestane [Aromasin] 25 mg PO QAM Hydrochlorothiazide [hydroCHLOROthiazide] 12.5 mg PO QAM Atorvastatin [Lipitor] 40 mg PO DAILY Nebivolol HCl [Bystolic] 10 mg PO HS Discharge Medication List Levothyroxine Sodium [Synthroid] 75 mcg PO QAM 01/28/17 [History] Aspirin 81 mg PO HS 02/02/17 [History] Acetaminophen Tab [Tylenol Tab] 500 mg PO Q6H 05/19/18 [History] C,E,Zinc,Copper 11/[id number]/Lut [Ocuvite Adult 50 Plus Softgel] 1 each PO QAM 05/19/18 [History] Cholecalciferol [Vitamin D3] 2,000 unit PO HS 05/19/18 [History] Omeprazole 20 mg PO BID 04/25/19 [History] Benazepril HCl [Lotensin] 40 mg PO HS 12/18/19 [History] Exemestane [Aromasin] 25 mg PO QAM 12/18/19 [History] Atorvastatin [Lipitor] 40 mg PO DAILY 03/28/20 [History] Hydrochlorothiazide [hydroCHLOROthiazide] 12.5 mg PO QAM 03/28/20 [History] Nebivolol HCl [Bystolic] 10 mg PO HS 03/28/20 [History] Follow up Appointment(s)/Referral(s): Yaima Jenkins MD [STAFF PHYSICIAN] - 1 Week Activity/Diet/Wound Care/Special Instructions: do not drive today, or if taking narcotic pain medication may shower after 48 hours wear bra at all times, until seen by Dr. Pan unless in shower Discharge Disposition: HOME SELF-CARE
[2020-11-26 10:40] VITALS: TEMP 97
[2020-11-26] MEDS ORDERED: HYDROmorphone 0.5 MG/0.5 ML SYRINGE IVP ONE ×3 (10:48→11:23)
[2020-11-26] MEDS: LABETALOL 5 MG/ML VIAL MDV IVP ONE ×2 (11:37→11:45)
[2020-11-26 12:50] VITALS: PULSE 76
[2020-11-26 13:18] VITALS: BP 156/83; RESP 17
[2020-11-26] MEDS ORDERED: ONDANSETRON 4 MG/2 ML VIAL ONE (14:25)
== END 2020-11-26 14:57 | disposition home or self-care (01) ==
LOC: OR 07:11
PROVIDERS: ATTEND Surgery
DX: N60.32 Fibrosclerosis of left breast (principal); N64.89 Other specified disorders of breast; E03.9 Hypothyroidism, unspecified; I10 Essential (primary) hypertension; E78.5 Hyperlipidemia, unspecified; K21.9 Gastro-esophageal reflux disease without esophagitis; Z85.3 Personal history of malignant neoplasm of breast; Z92.3 Personal history of irradiation; Z98.890 Other specified postprocedural states; Z96.651 Presence of right artificial knee joint; Z90.710 Acquired absence of both cervix and uterus; Z90.49 Acquired absence of other specified parts of digestive tract; Z90.89 Acquired absence of other organs; Z95.5 Presence of coronary angioplasty implant and graft; M19.90 Unspecified osteoarthritis, unspecified site; Z79.890 Hormone replacement therapy; Z79.899 Other long term (current) drug therapy; Z79.811 Long term (current) use of aromatase inhibitors; Z88.1 Allergy status to other antibiotic agents; Z88.5 Allergy status to narcotic agent
CPT/HCPCS: 19316; 88305; J2250; J1100; J2405; J0690; J2001; J3010; J0330; J2704; J1170; J1644

== ENCOUNTER → 2020-12-05 | Outpatient (CLI) | payer MEDICARE, OTHER ==
--- NOTE | 2020-12-05 13:58 | P.PN ---
Progress Note - Text Progress Note Date: 12/05/20 Rasheeda is a 75 year old white female status post a left breast mastopexy. Pathology was benign skin with dermal fibrosis. She tolerated the procedure without difficulty. Physical examination: Incision left breast clean and dry no evidence of infection Impression: 1. Patient doing well status post left breast mastopexy Plan: 1. Bilateral mammogram March 2021 with appointment at that time CC: Dr. Pan
[2020-12-05 14:08] VITALS: BP 128/79; PULSE 66; RESP 18
== END ==
LOC: WWCWWP 13:46
PROVIDERS: ATTEND Surgery
DX: Z09 Encounter for follow-up examination after completed treatment for conditions other than malignant neoplasm (principal); Z98.82 Breast implant status; Z88.5 Allergy status to narcotic agent; Z88.1 Allergy status to other antibiotic agents

== ENCOUNTER → 2021-05-13 | Outpatient (CLI) | payer MEDICARE, OTHER ==
--- NOTE | 2021-05-13 10:42 | MM ---
Reason for exam: additional evaluation requested from prior study. Last mammogram was performed 7 months ago. History: Patient is postmenopausal and has history of breast cancer at age 74. Malignant MG pre op needle loc RT of the right breast, July 18, 2019. Lumpectomy of the right breast, July 18, 2019. Malignant MG stereo VAD BX RT of the right breast, May 11, 2019. Taking other hormone beginning at age 74. Physical Findings: Nurse did not find any significant physical abnormalities on exam. MG 3D Diag Mammo W/Cad LEEROY Bilateral CC and MLO view(s) were taken. Prior study comparison: October 04, 2020, right breast MG 3d diag mammo w/cad RT. March 18, 2020, bilateral MG 3d diag mammo w/cad LEEROY. The breast tissue is heterogeneously dense. This may lower the sensitivity of mammography. Finding #1: There are clips and architectural distortion in the upper outer quadrant, anterior middle position of the right breast consistent with known excision changes. Finding #2: There are typically benign vascular, dystrophic, round calcifications in both breasts. There is no new discrete abnormality. These results were verbally communicated with the patient and result sheet given to the patient on 05/13/21. ASSESSMENT: Benign, BI-RAD 2 RECOMMENDATION: Follow-up diagnostic mammogram of both breasts in 1 year.
== END | disposition home or self-care (01) ==
LOC: RADMAMWWP 09:26
PROVIDERS: ATTEND Surgery
DX: R92.1 Mammographic calcification found on diagnostic imaging of breast (principal); Z78.0 Asymptomatic menopausal state; Z85.3 Personal history of malignant neoplasm of breast
CPT/HCPCS: 77066; G0279; 77062

== ENCOUNTER → 2021-05-22 | Outpatient (CLI) | payer MEDICARE, OTHER ==
[2021-05-22 09:48] VITALS: BP 171/81; PULSE 58; RESP 16; TEMP 98.2
--- NOTE | 2021-05-22 10:14 | P.PN ---
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 Pathology revealed DCIS at anterior and posterior margins. Posteriorly we were at the pectoralis major muscle and anteriorly skin was taken. The results were discussed with radiation oncology and it is not felt that further resection is necessary. She is not complaining of any lumps masses or nodules in her breasts. No nipple discharge or skin changes for which she is concerned. No history of any recent trauma or infection of the breast. She completed 20 treatments of radiation therapy in September 2019. She is presently on Aromasin, she is complaining of joint pain since she started this but this has improved. She has discussed this with medical oncology and was instructed to take Tylenol. She is continuing to take the Aromasin. She did not have any chemotherapy. She had a bilateral mammogram on 05-13-21. This was felt to be benign BIRAD 2 and repeat mammogram in one year recommended. She is complaining of discomfort in the right breast at the surgery site intermittently. Does not have any lumps masses or nodules in either breast for which she is concerned. We did a left breast mastopexy on 11-26-20. She underwent a left knee replacement on 01-29-21. Note from Dr. Bradford on reviewed Family history: Unknown patient is adopted Hormonal history: Menarche: 16 , breast fed: no, age at first 26 menopause: hysterectomy mid 30's (total done for bleeding) BCP: 1 year hormones: none Surgical history: 1. Total abdominal hysterectomy 2. Right breast lumpectomy and sentinel node biopsy 3. Surgeries 4. Cholecystectomy 5. Tonsillectomy 6. Balloon dilation of the esophagus done twice 7. Parathyroid surgery 8. Bilateral elbow tendon surgery 9. Knee replacement 10. cardiac stent Medical History: Hypothyroid Hypertension Joint pain related to Aromasin improving on cymbalta developed DVT right leg in 2010 with a symptomatic pulmonary emboli Social History: Nicotine: Negative Alcohol: Negative Drugs: Negative Review of systems: HEENT: Wears glasses, otherwise negative Lungs: Negative Cardiac: Hypertension, cardiac stent GI: Negative : Status post total abdominal hysterectomy Musculoskeletal: Joint pain possibly related to the Aromasin neurologic: Negative Hematologic: Baby aspirin daily ALLERGIES: As per HPI Objective - Vital Signs Vital signs: Vital Signs Temp 98.2 F 05/22/21 09:42 Pulse 58 L 05/22/21 09:42 Resp 16 05/22/21 09:42 BP 171/81 05/22/21 09:42 Pulse Ox Intake & Output 05/21/21 05/22/21 05/22/21 18:59 06:59 18:59 Weight 72.121 kg - Exam BMI 29.1 - Constitutional General appearance: Present: cooperative - EENT Eyes: Present: EOMI ENT: Present: hearing grossly normal - Neck Neck: Present: normal ROM - Respiratory Respiratory: bilateral: CTA - Cardiovascular Rhythm: regular Heart sounds: normal: S1, S2 - Gastrointestinal General gastrointestinal: Present: soft - Integumentary Integumentary: Present: normal turgor - Musculoskeletal Musculoskeletal: Present: gait normal - Psychiatric Psychiatric: Present: A&O x's 3, appropriate affect, intact judgment & insight - Additional findings Additional findings: Breast Exam: BRA: 42D inspection: Patient status post right breast lumpectomy site, left breast mastopexy Palpation: Right breast: Multi-positional exam fibrocystic changes no dominant masses or nodules of concern Right axilla: No adenopathy of concern Left breast: Multi-positional exam fibrocystic changes no dominant masses or nodules of concern Left axilla: No adenopathy of concern Assessment and Plan Assessment: Assessment and Plan Assessment: Impression: Hypothyroid Hypertension Joint pain related to Aromasin improving on cymbalta Mastopexy left breast right breast lumpectomy sentinel node biopsy/radiation therapy for stage 0 right breast cancer Plan: 1. Repeat bilateral mammogram in 1 year with physician exam at that time 2. Continue Aromasin 3. Follow-up. 6 months for examination Additional CC's: Umesh Pan
== END ==
LOC: WWCWWP 08:42
PROVIDERS: ATTEND Surgery
DX: Z85.3 Personal history of malignant neoplasm of breast (principal); E03.9 Hypothyroidism, unspecified; I10 Essential (primary) hypertension; M25.50 Pain in unspecified joint; Z98.82 Breast implant status; Z98.890 Other specified postprocedural states; Z92.3 Personal history of irradiation; Z86.718 Personal history of other venous thrombosis and embolism; Z86.711 Personal history of pulmonary embolism

== ENCOUNTER → 2021-09-05 | Outpatient (CLI) | payer MEDICARE, OTHER ==
--- NOTE | 2021-09-05 17:35 | XR ---
EXAMINATION TYPE: XR chest 2V DATE OF EXAM: 09/05/2021 COMPARISON: X-ray dated 11/12/2019 HISTORY: SOB for 3 months. History of breast cancer 2019. TECHNIQUE: Frontal and lateral views of the chest are obtained. FINDINGS: Slightly prominent interstitial lung markings which could be due to slight pulmonary conges tion. Unremarkable lungs otherwise. No sizable pleural effusion or definite pneumothorax. Slightly increased cardiac transverse diameter. Degenerative changes of the thoracic spine. Cholecystectomy clips. IMPRESSION: No gross pulmonary abnormality identified. Incidental findings as described above.
== END | disposition home or self-care (01) ==
LOC: RADXRMAIN 10:24
PROVIDERS: ATTEND Family Medicine
DX: R06.09 Other forms of dyspnea (principal); R06.02 Shortness of breath; Z85.3 Personal history of malignant neoplasm of breast
CPT/HCPCS: 71046

== ENCOUNTER → 2021-09-16 | Outpatient (CLI) | payer MEDICARE, OTHER ==
[~2021-09-16] MED LIST changes: -DEXAMETHASONE SOD PHOSPHATE 4 MG/ML 1 ML VIAL IV ONE; -HEPARIN SODIUM,PORCINE/PF 5,000 UNIT/0.5 ML SYRINGE SQ PRN; -LACTATED RINGERS 1,000 ML IV SCH; -MIDAZOLAM 2 MG/2 ML VIAL IV PRN; -ONDANSETRON 4 MG/2 ML VIAL IVP ONE; -Pre Op ABX Message 1 EACH MISC MISCELLANE ONE; +REGADENOSON 0.4 MG/5 ML SYRINGE IV PRN; -fentaNYL (PF) 50 MCG/ML 2 ML AMP IV PRN
--- NOTE | 2021-09-16 12:17 | NM ---
EXAMINATION TYPE: NM stress lexiscan cardiolite DATE OF EXAM: 09/16/2021 COMPARISON: NONE HISTORY: 76-year-old female atherosclerotic heart disease, chest pain, difficulty breathing, hyperten marie, high cholesterol, and previous heart catheter. TECHNIQUE: After the intravenous administration of 9.61 mCi Tc 99m Sestamibi - Cardiolite resting SP ECT images acquired 45 minutes post injection. The patient received 0.4mg Lexiscan, 25.1 mCi Tc 99m Sestamibi - Stress images obtained [address] injection FINDINGS: Review of stress and rest SPECT images demonstrates fixed decreased perfusion along the anterior wall both more focal reversibility anterior mid to apical wall no distinct perfusion abnormality. Gated analysis shows limited augmentation of the ventricular wall along the anterior mid to apical portion estimated left ventricular ejection fraction of 56 %. TID is elevated at 1.42. IMPRESSION: 1. Large fixed defect anterior wall could represent attenuation artifact or area of old infarct. 2. Focal superimposed reversibility mid to apical anterior wall suggesting inducible wayne-infarct isc hemia. 3. In addition, TID is elevated and can be seen in the setting of multivessel balanced, inducible isc hemia. Further workup and evaluation is recommended.
--- NOTE | 2021-09-16 13:00 | ECHOF ---
Referral Reason:I25.10 MEASUREMENTS -------- HEIGHT: 157.5 cm WEIGHT: 75.3 kg BP: RVIDd: 2.9 cm (< 3.3) IVSd: 1.3 cm (0.6 - 1.1) LVIDd: 4.2 cm (3.9 - 5.3) LVPWd: 1.3 cm (0.6 - 1.1) IVSs: 1.6 cm LVIDs: 2.3 cm LVPWs: 2.1 cm LAESV Index (A-L): 32.15 ml/m Ao Diam: 2.2 cm (2.0 - 3.7) LA Diam: 4.0 cm (2.7 - 3.8) MV E Will: 0.95 m/s MV DecT: 196 ms MV A Will: 1.21 m/s MV E/A Ratio: 0.78 AR PHT: 514 ms FINDINGS -------- Sinus rhythm. This was a technically adequate study. The left ventricular size is normal. There is mild concentric left ventricular hypertrophy. Overa ll left ventricular systolic function is normal with, an EF between 55 - 60 %. The diastolic fillin g pattern is normal for the age of the patient 25.00. The right ventricle is normal in size. LA is midly dilated 29-33ml/m2. The right atrial size is normal. Interatrial and interventricular septum intact. There is mild aortic regurgitation. There is no evidence of aortic stenosis. Aisz-fe-ucoromod mitral regurgitation is present. Mild tricuspid regurgitation present. There is no evidence of pulmonary hypertension. The right v entricular systolic pressure, as measured by Doppler, is {RVSP}. There is no pulmonic regurgitation present. The aortic root size is normal. Normal inferior vena cava with normal inspiratory collapse consistent with estimated right atrial pre ssure of 5 mmHg. There is no pericardial effusion. CONCLUSIONS -------- 1. The left ventricular size is normal. 2. There is mild concentric left ventricular hypertrophy. 3. Overall left ventricular systolic function is normal with, an EF between 55 - 60 %. 4. The diastolic filling pattern is normal for the age of the patient 25.00 5. LA is midly dilated 29-33ml/m2. 6. There is mild aortic regurgitation. 7. Yeuc-vf-ywhwiibl mitral regurgitation is present. 8. Mild tricuspid regurgitation present. FIELDWORK COORDINATOR: Shelby Pacheco RDCS
--- NOTE | 2021-09-16 13:27 | P.STRESS ---
- Stress Test Note Stress Test Results/Findings: Exam Performed: NM stress lexiscan cardiolite Exam Date: 09/16/21 Reason for Exam: HEART DISEASE Height: 5 ft 2 in Weight: 75.296 kg Protocol: LEXISCAN CARDIOLITE Stage: NA Duration of Exercise: NA Resting Heart Rate: 60 Resting Blood Pressure: 198/99 Maximum Achieved Heart Rate: 83 Maximum Achieved Blood Pressure: 198/99 85% PMHR: 124 100% PMHR: 145 METS: NA Technologist Comment: Stress Test Results/Findings: At baseline EKG showed normal sinus rhythm, normal axis, T-wave inversions lead to, and aVF, 1, aVL, V4 through V6. Patient recieved IV infusion of Lexiscan 0.4mg and at peak infusion EKG showed no significant change from baseline Conclusions: 1. Nondiagnostic EKG portion given baseline EKG abnormalities. 2. Nuclear imaging to be reported separately.
--- NOTE | 2021-09-17 11:59 | ECHOS ---
Stress Test Results/Findings: Exam Performed: NM stress lexiscan cardiolite Exam Date: 09/16/21 Reason for Exam: HEART DISEASE Height: 5 ft 2 in Weight: 75.296 kg Protocol: LEXISCAN CARDIOLITE Stage: NA Duration of Exercise: NA Resting Heart Rate: 60 Resting Blood Pressure: 198/99 Maximum Achieved Heart Rate: 83 Maximum Achieved Blood Pressure: 198/99 85% PMHR: 124 100% PMHR: 145 METS: NA Technologist Comment: Stress Test Results/Findings: At baseline EKG showed normal sinus rhythm, normal axis, T-wave inversions lead to, and aVF, 1, aVL, V4 through V6. Patient received IV infusion of Lexiscan 0.4mg and at peak infusion EKG showed no significant change from baseline Conclusions: 1. Nondiagnostic EKG portion given baseline EKG abnormalities. 2. Nuclear imaging to be reported separately. [facility]
== END | disposition home or self-care (01) ==
LOC: RADNMMAIN 08:02
PROVIDERS: ATTEND Family Medicine
DX: I08.3 Combined rheumatic disorders of mitral, aortic and tricuspid valves (principal); I11.9 Hypertensive heart disease without heart failure; E78.00 Pure hypercholesterolemia, unspecified
CPT/HCPCS: 93017; 93306; 78452; A9500; J2785

== ENCOUNTER → 2021-09-23 | Outpatient (CLI) | payer MEDICARE, OTHER ==
[2021-09-23 15:12] LABS: HCT 38.3 % (37.2-46.3); HGB 11.5 g/dL (12.0-15.0); MCH 29.7 pg (27.0-32.0); Mean Platelet Volume 11.4 fL (9.5-12.2); NRBC Per 100 WBC 0 /100 WBCS (0.0-0.0); Platelet Count 232 X 10*3/uL (140-440); RBC 3.87 X 10*6/uL (4.10-5.20); RDW 13.7 % (11.5-14.5); WBC 8.18 X 10*3/uL (4.50-10.00)
[2021-09-23 17:06] LABS: African American GFR (CKD) 64.3 (60.0-200.0); Anion Gap 13.4 mmol/L (10.00-18.00); BUN/Creat Ratio 18.7 Ratio (12.00-20.00); Blood Urea Nitrogen 18.7 mg/dL (9.0-27.0); Calcium 9.1 mg/dL (8.7-10.3); Carbon Dioxide 21.6 mmol/L (20.0-27.5); Non-African American GFR(CKD) 55.5 (60.0-200.0); Potassium 4.7 mmol/L (3.5-5.5)
== END | disposition home or self-care (01) ==
LOC: LABWHC1 08:40
PROVIDERS: ATTEND Internal Medicine Cardiovascular Disease
DX: R06.02 Shortness of breath (principal)
CPT/HCPCS: 36415; 80048; 85027

== ENCOUNTER 2021-09-25 05:51 | Day surgery (SDC) | payer MEDICARE, OTHER ==
[2021-09-24 08:35] VITALS: BMI 30.3
[2021-09-25] MEDS ORDERED: ALPRAZolam 0.5 MG TAB PO PRN (06:05)
[2021-09-25] MEDS ORDERED: ALPRAZolam 0.25 MG TAB PO PRN (06:05)
[2021-09-25] MEDS ORDERED: ASPIRIN 325 MG TAB PO STA (06:05)
[2021-09-25] MEDS ORDERED: NITROGLYCERIN SL TABS 0.4 MG TAB SUBLINGUAL PRN (06:05)
[2021-09-25] MEDS ORDERED: ATORVASTATIN 80 MG TAB PO STA (06:05)
[2021-09-25] MEDS ORDERED: SODIUM CHLORIDE 0.9% 1,000 ML IV ONE (06:10)
[2021-09-25] MEDS: SODIUM CHLORIDE 0.9% 1,000 ML in EMPTY BAG 1 BAG IV SCH ×6 (06:15→20:45)
[2021-09-25] MEDS ORDERED: VERAPAMIL 2.5 MG/ML 2 ML AMP ONE (07:32)
[2021-09-25] MEDS ORDERED: fentaNYL (PF) 50 MCG/ML 2 ML AMP ONE (07:40)
[2021-09-25] MEDS ORDERED: MIDAZOLAM 2 MG/2 ML VIAL IV ONE (07:44)
[2021-09-25] MEDS: fentaNYL (PF) 50 MCG/ML 2 ML AMP IV ONE ×3 (07:44→08:03)
[2021-09-25] MEDS ORDERED: LIDOCAINE 1% PF 10 MG/ML (5 ML AMP) SQ ONE ×3 (07:47→07:59)
[2021-09-25] MEDS ORDERED: HEPARIN SODIUM 1,000 UN/ML (10ML VL) IV ONE (07:51)
[2021-09-25] MEDS: VERAPAMIL SYRINGE (5 MG/10 ML) INTRAARTER ONE ×2 (07:51→07:56)
[2021-09-25] MEDS ORDERED: HEPARIN SODIUM 1,000 UN/ML (10ML VL) ONE (07:52)
[2021-09-25] MEDS: HEPARIN SODIUM 1,000 UN/ML (10ML VL) IV ONE ×2 (07:59→08:40)
[2021-09-25] MEDS ORDERED: CLOPIDOGREL 75 MG TAB ONE (08:49)
[2021-09-25] MEDS ORDERED: CLOPIDOGREL 75 MG TAB PO ONE (08:51)
[2021-09-25] MEDS ORDERED: IOPAMIDOL-370 125ML BTL INJ ONE (09:10)
[2021-09-25] MEDS ORDERED: SODIUM CHLORIDE 0.9% 1,000 ML IV SCH (09:15)
[2021-09-25] MEDS ORDERED: hydrALAZINE HCL 20 MG/ML 1 ML VIAL IVP PRN (09:46)
[2021-09-25] MEDS ORDERED: hydrALAZINE HCL 20 MG/ML 1 ML VIAL ONE (09:47)
--- NOTE | 2021-09-25 10:58 | CC ---
CARDIAC CATHETERIZATION REPORT INDICATION: Shortness of breath with abnormal stress test showing ischemia in LAD distribution. PROCEDURE NOTE: After obtaining informed consent, left heart catheterization and coronary angiogram were performed via the right femoral artery using standard Franc catheters. The patient tolerated the procedure well without any obvious immediate complications. Patient received moderate conscious sedation. Total sedation time was 26 minutes. I initially obtained vascular access from the right radial artery uneventfully, and patient received IV heparin and verapamil as per protocol. However, we could not advance the wire past the brachial artery; even with a Glidewire we were unable to do this. Hence I decided to perform a femoral cardiac catheterization. At the end of the procedure she did not have any symptoms. Her hand was well perfused and she did not have any discomfort. FINDINGS: HEMODYNAMICS: Left ventricular end-diastolic pressure is 18 mm. There is no significant gradient across the aortic valve. LEFT VENTRICULOGRAM: Left ventriculogram was not performed. ANGIOGRAPHIC DATA: Right coronary artery. Right coronary artery is a nondominant vessel and shows moderate to severe disease involving the mid RCA portion. Left main coronary artery is a normal-sized vessel and is free of stenosis. It divides into left anterior descending coronary artery and circumflex coronary artery. Circumflex coronary artery is a large dominant vessel. There is mild to moderate disease involving the AV groove circumflex. LAD gives off a large-caliber diagonal branch that is chronically occluded and was noted to be occluded on a prior catheterization in 2017. Patient, however, has a significant lesion in the LAD past the diagonal. It seems to be a 70% to 80% stenosis. CONCLUSIONS: Three-vessel coronary artery disease as described above with a chronically occluded diagonal branch with new significant disease involving mid LAD. Given the patient's symptoms of shortness of breath, ischemia in LAD distribution, and the lesion noted in the LAD, patient will undergo angioplasty with stent placement of the same. MMODL / IJN: [id number] /
[2021-09-25] MEDS ORDERED: ACETAMINOPHEN TAB 325 MG TAB ONE (11:04)
--- NOTE | 2021-09-25 13:01 | P.PCN ---
Date of Procedure: 09/25/21 Operative Findings: Percutaneous coronary intervention Performing physician Ke Leahy MD Procedure performed Successful stenting of the proximal LAD using 3.5 x 15 mm Xience DOMENICA with an excellent angiographic results Indication Severe disease involving the proximal LAD in this 76-year-old female patient who was experiencing chest discomfort and underwent myocardial perfusion imaging stress test that revealed an anterior ischemia Approach Right common femoral artery Complication None Level of sedation Moderate with a sedation length of 30 minutes Procedure description Please refer to diagnostic heart catheterization was performed by Dr. Barajas earlier today Anticoagulation was initiated using heparinWith continuous ACT monitoring throughout the case I did engage the left main using JL4 guiding catheter. I did a wire the LAD using a run-through wire. Subsequently balloon angioplasty of the LAD was performed using 3.0 x 12 mm balloon before I deployed a 3.5 x 15 mm stent where the stent was positioned under fluoroscopy guidance and deployed under its nominal pressure. Postdilatation was performed using 3.5 mm noncompliant balloon which was inflated under 18 fabrice. The final angiogram showed excellent angiographic results and the procedure was completed without any complication By the end we did selective right common femoral artery angiogram Postprocedure management Dual antiplatelet therapy Aggressive cholesterol control PCI of the LCx/OM
[2021-09-25] MEDS ORDERED: ONDANSETRON 4 MG TAB PO PRN (14:35)
[2021-09-25] MEDS ORDERED: lisinopriL 20 MG TAB PO SCH (21:00)
[2021-09-25] MEDS ORDERED: ASPIRIN 81 MG PO SCH (21:00)
[2021-09-25] MEDS ORDERED: PROPRANOLOL 20 MG TAB PO SCH (21:00)
[2021-09-25] MEDS ORDERED: ISOSORBIDE MONONITRATE ER 30 MG TAB.ER.24H PO SCH (21:00)
[2021-09-26] MEDS ORDERED: LEVOTHYROXINE 75 MCG TAB PO SCH (06:30)
[2021-09-26 07:28] LABS: African American GFR (CKD) 60 (>60 ml/min/1.73 sqM); Anion Gap 9 mmol/L; Blood Urea Nitrogen 13 mg/dL (7-17); Calcium 8.9 mg/dL (8.4-10.2); Carbon Dioxide 23 mmol/L (22-30); Chloride 107 mmol/L (98-107); Glucose 88 mg/dL (74-99); Non-African American GFR(CKD) 52 (>60 ml/min/1.73 sqM); Potassium 4.2 mmol/L (3.5-5.1); Sodium 139 mmol/L (137-145)
[2021-09-26 07:30] LABS: Basophils # (A) 0.1 k/uL (0-0.2); Basophils % (A) 1 %; Eosinophils # (A) 0.3 k/uL (0-0.7); Eosinophils % (A) 4 %; HCT 37.6 % (34.0-46.0); HGB 12.2 gm/dL (11.4-16.0); Lymphocytes # (A) 2.3 k/uL (1.0-4.8); Lymphocytes % (A) 31 %; MCH 31.8 pg (25.0-35.0); MCHC 32.4 g/dL (31.0-37.0); Mean Platelet Volume 8.2; Monocytes # (A) 0.5 k/uL (0-1.0); Monocytes % (A) 6 %; Neutrophils # (A) 4.1 k/uL (1.3-7.7); Neutrophils % (A) 56 %; Platelet Count 230 k/uL (150-450); RBC 3.84 m/uL (3.80-5.40); RDW 13.3 % (11.5-15.5); WBC 7.4 k/uL (3.8-10.6)
[2021-09-26] MEDS ORDERED: PANTOPRAZOLE 40 MG TABLET PO SCH (07:30)
[2021-09-26 07:39] VITALS: BP 123/59; PULSE 60; RESP 16; TEMP 97.8
[2021-09-26] MEDS: SODIUM CHLORIDE 0.9% 1,000 ML in EMPTY BAG 1 BAG IV SCH (08:45)
[2021-09-26] MEDS ORDERED: CLOPIDOGREL 75 MG TAB PO SCH ×2 (09:00→10:45)
[2021-09-26] MEDS ORDERED: ATORVASTATIN 40 MG TAB PO SCH (09:00)
[2021-09-26] MEDS ORDERED: EXEMESTANE 25 MG PO SCH (09:00)
--- NOTE | 2021-09-26 12:26 | DS ---
DISCHARGE SUMMARY DATE OF ADMISSION: 09/25/2021 DATE OF DISCHARGE: 09/26/2021. PROCEDURES PERFORMED: 1. Left heart catheterization. 2. Angioplasty with stent placement of LAD. HOSPITAL COURSE: This is a 76-year-old lady with history of coronary artery disease, status post prior angioplasty of the diagonal branch, who presented to me with symptoms of exertional shortness of breath, had a stress test that showed ischemia in LAD distribution, and went on to have cardiac catheterization. Her coronary angiogram revealed a chronically occluded diagonal branch with significant stenosis involving mid LAD and circumflex coronary artery. She underwent angioplasty with stent placement of LAD and has had an uneventful night. At the time of my evaluation this morning she is free of chest pain or difficulty in breathing. On exam, afebrile. Heart rate is 60 beats per minute. Blood pressure is 120/59, respiratory rate 16, O2 saturation 95% on room air. There is no jugular venous distention. Chest exam reveals good air entry bilaterally. Heart exam reveals first and second heart sounds. No gallop. No murmur. Abdomen is soft. Examination of extremities did not reveal any edema. Right radial artery access site appears normal. Femoral access site is free of bleeding, bruit or hematoma. Labs show a hemoglobin of 12.2, platelet count is 230, potassium is 4.2, creatinine is 1. EKG shows sinus bradycardia with inferolateral ST-T wave changes that were noted at the end of angioplasty. Discharge medications include aspirin, Inderal, omeprazole, Synthroid, Imdur, Lipitor and Plavix 75 mg daily. FOLLOWUP: Patient will be followed up in my office in a week's time. Patient has a lesion in the circumflex coronary artery that will be addressed down the road. MMODL / IJN: [id number] /
== END 2021-09-26 11:04 | disposition home or self-care (01) ==
LOC: CATHCVL 05:51 → 6NMEDSUR 08:58 → CATHCVL 09-26 11:04
PROVIDERS: ATTEND Internal Medicine Cardiovascular Disease
DX: I25.10 Atherosclerotic heart disease of native coronary artery without angina pectoris (principal); I10 Essential (primary) hypertension; I73.9 Peripheral vascular disease, unspecified; E07.9 Disorder of thyroid, unspecified; E78.2 Mixed hyperlipidemia; Z95.5 Presence of coronary angioplasty implant and graft; Z79.82 Long term (current) use of aspirin; Z79.899 Other long term (current) drug therapy; Z79.890 Hormone replacement therapy; Z88.1 Allergy status to other antibiotic agents; Z88.5 Allergy status to narcotic agent
CPT/HCPCS: 93458; 80048; 85025; C9600; C1887 ×2; C1894 ×2; C1725 ×2; C1769 ×3; C1874; J2250; J0360; J2001; J3010; J1644; Q9967

== ENCOUNTER 2021-10-23 10:21 | Day surgery (SDC) | payer MEDICARE, OTHER ==
[2021-10-21 13:27] VITALS: BMI 29.9
[~2021-10-23 10:21] MED LIST changes: +ALPRAZolam 0.25 MG TAB PO PRN; +ALPRAZolam 0.5 MG TAB PO PRN; +ASPIRIN 325 MG TAB PO STA; +ATORVASTATIN 80 MG TAB PO STA; +HEPARIN SODIUM,PORCINE 10,000 UNIT in SODIUM CHLORIDE 0.9% 1,000 ML IRRIGATION PRN; +HEPARIN SODIUM,PORCINE 2,500 UNIT in SODIUM CHLORIDE 0.9% 250 ML IRRIGATION PRN; +NITROGLYCERIN SL TABS 0.4 MG TAB SUBLINGUAL PRN; -REGADENOSON 0.4 MG/5 ML SYRINGE IV PRN; +SODIUM CHLORIDE 0.9% 1,000 ML in EMPTY BAG 1 BAG IV ONE
[2021-10-23] MEDS ORDERED: SODIUM CHLORIDE 0.9% 1,000 ML IV ONE (10:34)
[2021-10-23] MEDS ORDERED: HEPARIN SODIUM 1,000 UN/ML (10ML VL) ONE (11:58)
[2021-10-23] MEDS ORDERED: MIDAZOLAM 2 MG/2 ML VIAL IV ONE (12:12)
[2021-10-23] MEDS ORDERED: LIDOCAINE 1% INJ 10MG/ML (5 ML VIAL-PF) SQ ONE ×3 (12:13)
[2021-10-23] MEDS ORDERED: HEPARIN SODIUM 1,000 UN/ML (10ML VL) IV ONE (12:18)
[2021-10-23] MEDS ORDERED: METOPROLOL TARTRATE 5 MG/5 ML VIAL IVP ONE ×2 (12:24→12:26)
[2021-10-23] MEDS ORDERED: IOPAMIDOL-370 125ML BTL INJ ONE (12:37)
[2021-10-23] MEDS ORDERED: MAG HYDROX/AL HYDROX/SIMETH 30 ML CUP PO PRN (12:40)
[2021-10-23] MEDS ORDERED: NITROGLYCERIN SL TABS 0.4 MG TAB SUBLINGUAL PRN (12:40)
[2021-10-23] MEDS ORDERED: ZOLPIDEM 5 MG TAB PO PRN (12:40)
[2021-10-23] MEDS ORDERED: RX INFO: IV CONTRAST WAS GIVEN 1 EACH MISC MISCELLANE PRN (12:40)
[2021-10-23] MEDS ORDERED: ATROPINE SULFATE 0.1 MG/ML 10ML SYRINGE IV PRN (12:40)
--- NOTE | 2021-10-23 12:45 | P.PCN ---
Date of Procedure: 10/23/21 Operative Findings: PERCUTANEOUS CORONARY INTERVENTION Performing physician Ke Leahy M.D. Procedure Performed: 1. Successful stenting of the OM1 of the left circumflex using 3.0 x 15 mm Xience drug-eluting stent with an excellent angiographic results. 2. Selective right common femoral artery and a. 3. Ultrasound-guided access of the right common femoral artery Indication: Severe disease involving OM1 was identified on heart catheterization on this lady will underwent stenting of the LAD few weeks ago. Approach: Right common femoral artery Complications: None Level of Sedation: Moderate with a sedation length of 18 minutes Procedure Discussion: After obtaining an informed consent the patient was brought to the cardiac helper animal laboratory. The right common femoral artery was cannulated using a puncture technique, the micropuncture wire passed easily then I placed a 6-Malagasy sheath in the right common femoral artery. Subsequently anticoagulation was initiated using heparin with ACT monitoring throughout the case The left main was engaged using an EBU 3.5 guiding catheter. Subsequently I did advance a run-through wire to the OM1. Predilatation was performed using 2.5 x 12 mm balloon before I deployed 30 by 15 mm stent where the stent was positioned under fluoroscopy guidance and deployed under 18 fabrice for 20 seconds. The final angiogram showed good angiographic results and the procedure was completed without any complications Postprocedure Management: 1. Dual antiplatelet therapy for at least 6 months and preferably a year if there is no issues with bleeding 2. Aggressive cholesterol control 3. Risk factors modification 4. Follow-up with Dr. Barajas
[2021-10-23] MEDS ORDERED: hydrALAZINE HCL 20 MG/ML 1 ML VIAL IVP PRN (13:39)
[2021-10-23] MEDS: ACETAMINOPHEN TAB 500 MG TAB PO PRN ×2 (13:46→21:24)
[2021-10-23] MEDS ORDERED: PROPRANOLOL LA 60 MG CAP.SA.24H PO SCH (21:00)
[2021-10-23] MEDS ORDERED: lisinopriL 20 MG TAB PO SCH (21:00)
[2021-10-23] MEDS ORDERED: CLOPIDOGREL 75 MG TAB PO SCH (21:00)
[2021-10-23] MEDS ORDERED: ISOSORBIDE MONONITRATE ER 30 MG TAB.ER.24H PO SCH (21:00)
[2021-10-23] MEDS ORDERED: ASPIRIN 81 MG PO SCH (21:00)
[2021-10-24] MEDS ORDERED: LEVOTHYROXINE 75 MCG TAB PO SCH (06:30)
[2021-10-24 07:14] VITALS: BP 101/55; PULSE 66; RESP 18; TEMP 98
[2021-10-24] MEDS ORDERED: PANTOPRAZOLE 40 MG TABLET PO SCH (07:30)
[2021-10-24] MEDS ORDERED: ATORVASTATIN 40 MG TAB PO SCH (09:00)
[2021-10-24] MEDS ORDERED: CYANOCOBALAMIN 500 MCG TAB PO SCH (09:00)
[2021-10-24] MEDS ORDERED: NON FORMULARY DRUG (Exemestane [Aromasin] 25 MG Tablet) PO SCH (09:00)
[2021-10-24] MEDS ORDERED: CHOLECALCIFEROL 25 MCG (1000 IU) TABLET PO SCH (09:00)
[2021-10-24] MEDS ORDERED: VIT A,C & E-LUTEIN-MINERALS 1 EACH TAB PO SCH (09:00)
--- NOTE | 2021-10-24 10:20 | P.DS ---
Providers Attending physician: Ke Leahy Consults: 10/23/21 12:40 Consult Physician Routine Consulting Provider: [facility] Consult Reason/Comments: Post Interventional patient Do you want consulting provider notified?: Already Contacted Primary care physician: Umesh Pan [place] [facility] Course: The patient is a very pleasant 76-year-old female patient who sees Dr. Barajas regularly underwent yesterday successful stenting of the first obtuse marginal branch of the left circumflex with a good angiographic results and without any complication from right groin approach. The patient was seen this morning. She is asymptomatic beach she is hemodynamically stable. The right groin is soft and nontender and without any bruises. She is going to be discharged home and follow-up with Dr. Barajas in a week. Plan - Discharge Summary Discharge Rx Participant: No New Discharge Prescriptions: Continue Levothyroxine Sodium [Synthroid] 75 mcg PO QAM Aspirin 81 mg PO HS Cholecalciferol [Vitamin D3 (25 Mcg = 1000 Iu)] 1,000 unit PO DAILY C,E,Zinc,Copper 11/Tvoay4k/Lut [Ocuvite Adult 50 Plus Softgel] 1 each PO QAM Benazepril HCl [Lotensin] 40 mg PO HS Exemestane [Aromasin] 25 mg PO QAM Atorvastatin [Lipitor] 40 mg PO DAILY Cyanocobalamin (Vitamin B-12) [Vitamin B-12] 1,000 mcg PO DAILY Clopidogrel [Plavix] 75 mg PO HS Isosorbide Mononitrate ER [Imdur] 30 mg PO HS Omeprazole 20 mg PO DAILY Propranolol HCl [Inderal] 60 mg PO HS Discharge Medication List Levothyroxine Sodium [Synthroid] 75 mcg PO QAM 01/28/17 [History] Aspirin 81 mg PO HS 02/02/17 [History] C,E,Zinc,Copper 11/Gwzuc9r/Lut [Ocuvite Adult 50 Plus Softgel] 1 each PO QAM 05/19/18 [History] Cholecalciferol [Vitamin D3 (25 Mcg = 1000 Iu)] 1,000 unit PO DAILY 05/19/18 [History] Benazepril HCl [Lotensin] 40 mg PO HS 12/18/19 [History] Exemestane [Aromasin] 25 mg PO QAM 12/18/19 [History] Atorvastatin [Lipitor] 40 mg PO DAILY 03/28/20 [History] Cyanocobalamin (Vitamin B-12) [Vitamin B-12] 1,000 mcg PO DAILY 05/22/21 [History] Isosorbide Mononitrate ER [Imdur] 30 mg PO HS 09/24/21 [History] Omeprazole 20 mg PO DAILY 09/24/21 [History] Propranolol HCl [Inderal] 60 mg PO HS 09/24/21 [History] Clopidogrel [Plavix] 75 mg PO HS 10/21/21 [History] Follow up Appointment(s)/Referral(s): Ke Leahy MD [STAFF PHYSICIAN] - 1 Week (APPOINTMENT MADE ON October @ 9:00AM ) Patient Instructions/Handouts: *Surgery [facility] - After Heart Catheterization - Carton Filler Instructions, Moderate Sedation (ED), Cardiac Rehabilitation (ED), Coronary Intravascular Stent Placement (DC) Activity/Diet/Wound Care/Special Instructions: *NO LIFTING, PUSHING, OR PULLING ANYTHING OVER 5 POUNDS FOR 5 DAYS *NO DRIVING FOR 3 DAYS *YOU CAN SHOWER TOMORROW BUT DO NOT SUBMERSE YOUR PUNCTURE SITE IN WATER FOR A FEW DAYS TO PREVENT INFECTION - SO NO TUB BATHS, POOLS, HOT TUBS, DISHES....ETC *ANY SIGNS OF BLEEDING (HARDNESS, SWELLING, OR EXCESSIVE BRUISING) HOLD DIRECT PRESSURE ON YOUR PUNCTURE SITE AND COME TO THE NEAREST EMERGENCY ROOM TO GET YOUR PUNCTURE SITE LOOKED AT - DO NOT DRIVE YOURSELF! EITHER CALL EMS OR HAVE SOMEONE DRIVE YOU!
== END 2021-10-24 10:53 | disposition home or self-care (01) ==
LOC: CATHCVL 10:21 → 6NMEDSUR 12:28 → CATHCVL 10-24 10:53
PROVIDERS: ATTEND Internal Medicine Interventional Cardiology
DX: I25.10 Atherosclerotic heart disease of native coronary artery without angina pectoris (principal); I10 Essential (primary) hypertension; I73.9 Peripheral vascular disease, unspecified; Z20.822 Contact with and (suspected) exposure to COVID-19; Z88.1 Allergy status to other antibiotic agents; Z88.5 Allergy status to narcotic agent; Z79.02 Long term (current) use of antithrombotics/antiplatelets; Z79.811 Long term (current) use of aromatase inhibitors; Z79.82 Long term (current) use of aspirin; Z79.890 Hormone replacement therapy; Z79.899 Other long term (current) drug therapy
CPT/HCPCS: 94760; 82565; 87635; C9600; C1760; C1887; C1725; C1769 ×3; C1894; C1874; J2250; J0360; J2001; J1644; Q9967

== ENCOUNTER → 2021-12-05 | Outpatient (CLI) | payer MEDICARE, OTHER ==
--- NOTE | 2021-12-07 09:06 | XR ---
EXAMINATION TYPE: XR chest 2V DATE OF EXAM: 12/05/2021 4:10 PM COMPARISON: Chest radiographs from 09/05/2021. TECHNIQUE: XR chest 2V Frontal and lateral views of the chest. CLINICAL INDICATION:Female, 76 years old with history of J20.9 ACUTE BRONCHITIS; FINDINGS: Lungs/Pleura: There is no evidence of pleural effusion, focal consolidation, or pneumothorax. Pulmonary vascularity: Unremarkable. Heart/mediastinum: Cardiomediastinal silhouette is enlarged and stable. Musculoskeletal: Multiple level degenerative disc disease changes seen throughout the spine. IMPRESSION: 1. No acute cardiopulmonary disease/process. 2. Stable cardiomegaly and pulmonary vasculature.
== END | disposition home or self-care (01) ==
LOC: RADXRMAIN 16:01
PROVIDERS: ATTEND Family Medicine
DX: J20.9 Acute bronchitis, unspecified (principal); I51.7 Cardiomegaly
CPT/HCPCS: 71046

== ENCOUNTER → 2022-05-15 | Outpatient (CLI) | payer MEDICARE, OTHER ==
--- NOTE | 2022-05-15 11:18 | MM ---
Reason for Exam: Hx of breast cancer, conservation therapy. Last screening mammogram was performed 12 month(s) ago. Patient History: Menarche at age 15. First Full-Term at age 26. Left ovary removed at age 41. Right ovary removed at age 41. Hysterectomy at age 41. Postmenopausal. Breast cancer, age 74. 07/18/2019, Lumpectomy on the Right side. 07/18/2019, Malignant Core Biopsy on the right side. 05/11/2019, Malignant Core Biopsy on the right side. Tissue Density: The breast tissue is heterogeneously dense. This may lower the sensitivity of mammography. Findings: Analyzed By CAD. There are benign-appearing round and linear calcifications bilaterally. Benign-appearing vascular calcifications in the bilateral breasts are redemonstrated. Persistent distortion and surgical clips along with skin thickening in the right breast consistent with posttreatment change. No suspicious new mass or worrisome group of microcalcification in either breast. Overall Assessment: Benign, BI-RAD 2 Management: Diagnostic Mammogram of both breasts in 1 year. A clinical breast exam by your physician is recommended on an annual basis and results should be correlated with mammographic findings. This exam should not preclude additional follow-up of suspicious palpable abnormalities. Results were given to the patient verbally at the time of exam. Electronically signed and approved by: Mir Drummond M.D.
== END | disposition home or self-care (01) ==
LOC: RADMAMWWP 10:36
PROVIDERS: ATTEND Surgery
DX: R92.8 Other abnormal and inconclusive findings on diagnostic imaging of breast (principal); Z85.3 Personal history of malignant neoplasm of breast; Z78.0 Asymptomatic menopausal state; Z90.721 Acquired absence of ovaries, unilateral
CPT/HCPCS: 77066; G0279; 77062

== ENCOUNTER → 2022-11-03 | Outpatient (CLI) | payer MEDICARE, OTHER ==
--- NOTE | 2022-11-03 14:50 | NM ---
EXAMINATION TYPE: NM bone scan whole body DATE OF EXAM: 11/03/2022 COMPARISON: NONE CLINICAL INDICATION: Female, 77 years old with history of M25.561 pain R knee; Delayed whole-body scanning was performed following the injection of 21.2 mCi Tc 99m MDP. Images acq uired 3 hours post injection. FINDINGS: Photopenic defects are seen about the bilateral knees compatible with total knee arthroplasty changes . No evidence for asymmetric uptake within either knee to suggest infection or loosening at this time . There is degenerative uptake about the shoulders, sternoclavicular joints, wrists and hands as well as the great toes right greater than left. No intense uptake to suggest fracture or bony lesion. IMPRESSION: Degenerative uptake as noted.
== END | disposition home or self-care (01) ==
LOC: RADNMMAIN 10:15
PROVIDERS: ATTEND Orthopaedic Surgery
DX: I80.00 Phlebitis and thrombophlebitis of superficial vessels of unspecified lower extremity (principal); R93.7 Abnormal findings on diagnostic imaging of other parts of musculoskeletal system; M43.16 Spondylolisthesis, lumbar region; Z96.652 Presence of left artificial knee joint; Z96.651 Presence of right artificial knee joint; M54.16 Radiculopathy, lumbar region; Z47.1 Aftercare following joint replacement surgery
CPT/HCPCS: 78306; A9503

== ENCOUNTER → 2022-11-25 | Outpatient (CLI) | payer MEDICARE, OTHER ==
[2022-11-25 12:57] VITALS: BP 176/88; PULSE 97; RESP 17; TEMP 98
--- NOTE | 2022-11-25 13:37 | P.PN ---
Subjective Progress Note Date: 11/25/22 Principal diagnosis: right breast DCIS, right breast for DCIS/Stage 0; left breast mastopexy DCIS right breast Rasheeda is a 76-year-old white female status post right sentinel node biopsy and lumpectomy for ductal carcinoma in situ on 07-18-19. Pathology reveal ed DCIS at anterior and posterior margins. Posteriorly we were at the pectoralis major muscle and anteriorly skin was taken. The results were discussed with radiation oncology and it is not felt that further resection is necessary. She is not complaining of any lumps masses or nodules in her breasts. No nipple discharge or skin changes for which she is concerned. No history of any recent trauma or infection of the breast. She completed 20 treatments of radiation therapy in September 2019. She is presently on Aromasin, she is complaining of joint pain since she started this but this has improved. She has discussed this with medical oncology and was instructed to take Tylenol. She is continuing to take the Aromasin. She did not have any chemotherapy. She had a bilateral mammogram on 05-15-22 BIRAD 2. She states that she is not complaining of any new lumps masses or nodules in either breast. However depending on her position she notes some spasm in the right lateral chest wall. We did a left breast mastopexy on 11-26-20. She underwent a left knee replacement on 01-29-21. Note from radiation oncology 06-15-22 reviewed Family history: Unknown patient is adopted Hormonal history: Menarche: 16 , breast fed: no, age at first 26 menopause: hysterectomy mid 30's (total done for bleeding) BCP: 1 year hormones: none Surgical history: 1. Total abdominal hysterectomy 2. Right breast lumpectomy and sentinel node biopsy 3. Surgeries 4. Cholecystectomy 5. Tonsillectomy 6. Balloon dilation of the esophagus done twice 7. Parathyroid surgery 8. Bilateral elbow tendon surgery 9. Knee replacement 10. cardiac stent Medical History: Hypothyroid Hypertension Joint pain related to Aromasin improving on cymbalta developed DVT right leg in 2010 with a symptomatic pulmonary emboli Social History: Nicotine: Negative Alcohol: Negative Drugs: Negative Review of systems: HEENT: Wears glasses, otherwise negative Lungs: Negative Cardiac: Hypertension, cardiac stent GI: Negative : Status post total abdominal hysterectomy Musculoskeletal: Joint pain possibly related to the Aromasin neurologic: Negative Hematologic: Baby aspirin daily ALLERGIES: As per HPI Objective - Vital Signs Vital signs: Vital Signs Temp 98 F 11/25/22 12:48 Pulse 97 11/25/22 12:48 Resp 17 11/25/22 12:48 BP 176/88 11/25/22 12:48 Pulse Ox 97 11/25/22 12:48 FiO2 Intake & Output 11/24/22 11/25/22 11/25/22 18:59 06:59 18:59 Weight 77.111 kg - Constitutional General appearance: Present: cooperative - EENT Eyes: Present: EOMI ENT: Present: hearing grossly normal - Neck Neck: Present: normal ROM - Respiratory Respiratory: bilateral: CTA - Cardiovascular Rhythm: regular Heart sounds: normal: S1, S2 Abnormal Heart Sounds: Present: systolic murmur - Gastrointestinal General gastrointestinal: Present: soft - Integumentary Integumentary: Present: normal turgor - Musculoskeletal Musculoskeletal: Present: gait normal - Psychiatric Psychiatric: Present: A&O x's 3, appropriate affect, intact judgment & insight - Additional findings Additional findings: Breast Exam: BRA: 42D inspection: Patient status post right breast lumpectomy site, left breast masto pexy Palpation: Right breast: Multi-positional exam fibrocystic changes no dominant masses or nodules of concern; attention at the lumpectomy site does not reveal any lumps masses or nodules of concern on today's visit Right axilla: No adenopathy of concern Left breast: Multi-positional exam fibrocystic changes no dominant masses or nodules of concern Left axilla: No adenopathy of concern Fungal infection under her left breast Assessment and Plan Assessment: Impression: Right breast status post lumpectomy and radiation therapy for DCIS, no evidence of recurrent disease at this time Fibrocystic breast changes Status post left breast mastopexy Bilateral mammogram on benign BIRADS 2 Plan: Bilateral mammogram in May 2023 with examination at that time Patient to follow up sooner any questions or concerns related to her breast Nystatin for fungal infection under her left breast Continue Aromasin as per medical oncology CC: Dr. Pan
== END ==
LOC: WWCWWP 12:15
PROVIDERS: ATTEND Surgery
DX: D05.11 Intraductal carcinoma in situ of right breast (principal); N60.31 Fibrosclerosis of right breast; Z98.82 Breast implant status; E03.9 Hypothyroidism, unspecified; I10 Essential (primary) hypertension; I82.401 Acute embolism and thrombosis of unspecified deep veins of right lower extremity; I82.890 Acute embolism and thrombosis of other specified veins; Z88.5 Allergy status to narcotic agent; Z88.1 Allergy status to other antibiotic agents; Z79.890 Hormone replacement therapy

== ENCOUNTER → 2023-05-17 | Outpatient (CLI) | payer MEDICARE, OTHER ==
--- NOTE | 2023-05-17 10:10 | MM ---
Reason for Exam: Hx of breast cancer, conservation therapy. Last screening mammogram was performed 12 month(s) ago. Indicated Problems: Pain of the right side (Global) for 1 Year(s). Patient History: Menarche at age 15. First Full-Term at age 26. Left ovary removed at age 41. Right ovary removed at age 41. Hysterectomy at age 41. Postmenopausal. Patient has history of breast feeding. Breast cancer, right, age 74. 07/18/2019, Lumpectomy on the Right side. 07/18/2019, Malignant Core Biopsy on the right side. 05/11/2019, Malignant Core Biopsy on the right side. Prior Study Comparison: 06/15/2016 Screening Mammogram, Unknown. 03/30/2018 Screening Mammogram, Unknown. 05/10/2019 Bilateral Diagnostic Mammogram, [facility]. 03/18/2020 Bilateral Diagnostic Mammogram, [facility]. 10/04/2020 Right Diagnostic Mammogram, [facility]. 05/13/2021 Bilateral Diagnostic Mammogram, [facility]. 05/15/2022 Bilateral MG 3D diag mammo w/cad LEEROY, [facility]. Tissue Density: The breast tissue is heterogeneously dense. This may lower the sensitivity of mammography. Findings: Analyzed By CAD. Postsurgical and posttreatment changes redemonstrated right breast. An area of asymmetric density outer posterior aspect of the right breast does not persist on the 3-D XCCL view. Findings compatible with superimposition shadow. Regional calcifications on the left and bilateral vascular calcifications remain unchanged. Overall Assessment: Benign, BI-RAD 2 Management: Screening Mammogram of both breasts in 1 year. Further clinical management of patient's right breast pain/spasms. Results were given to the patient verbally at the time of exam. Patient should continue monthly self-breast exams. A clinical breast exam by your physician is recommended on an annual basis. This exam should not preclude additional follow-up of suspicious palpable abnormalities. Electronically signed and approved by: Demetrio Brady M.D. Radiologist
== END | disposition home or self-care (01) ==
LOC: RADMAMWWP 09:30
PROVIDERS: ATTEND Surgery
DX: R92.333 Mammographic heterogeneous density, bilateral breasts (principal); R92.1 Mammographic calcification found on diagnostic imaging of breast; Z85.3 Personal history of malignant neoplasm of breast; Z78.0 Asymptomatic menopausal state
CPT/HCPCS: 77066; G0279; 77062

== ENCOUNTER → 2023-05-20 | Outpatient (CLI) | payer MEDICARE, OTHER ==
[2023-05-20 10:54] VITALS: BP 190/131; PULSE 67; RESP 18; TEMP 98.3
--- NOTE | 2023-05-20 10:55 | P.PN ---
Subjective Progress Note Date: 05/20/23 Principal diagnosis: right breast DCIS 2019 right breast for DCIS/Stage 0 2019; left breast mastopexy DCIS right breast Rasheeda is a 78-year-old white female status post right sentinel node biopsy and lumpectomy for ductal carcinoma in situ on 07-18-19. Pathology revealed DCIS at anterior and posterior margins. Posteriorly we were at the pectoralis major muscle and anteriorly skin was taken. The results were discussed with radiation oncology and it was not felt that further resection is necessary. She is not complaining of any lumps masses or nodules in her breasts. No nipple discharge or skin changes for which she is concerned. No history of any recent trauma or infection of the breast. She completed 20 treatments of radiation therapy in September 2019. She is presently on Aromasin, she is complaining of joint pain since she started this but this has improved. She has discussed this with medical oncology and was instructed to take Tylenol. She is continuing to take the Aromasin. She did not have any chemotherapy. She had a bilateral mammogram on 05-17-23 BIRAD 2. She states that she is not complaining of any new lumps masses or nodules in either breast. However depending on her position she notes some spasm in the right lateral chest wall, it intermittnatly cramps up in a spasm. The spasm was only for a few minutes but it is very painful for her. It does not happen every day. We did a left breast mastopexy on 11-26-20. She underwent a left knee replacement on 01-29-21. Note from radiation oncology 06-15-22 reviewed Family history: Unknown patient is adopted Hormonal history: Menarche: 16 , breast fed: no, age at first 26 menopause: hysterectomy mid 30's (total done for bleeding) BCP: 1 year hormones: none Surgical history: 1. Total abdominal hysterectomy 2. Right breast lumpectomy and sentinel node biopsy 3. Surgeries 4. Cholecystectomy 5. Tonsillectomy 6. Balloon dilation of the esophagus done twice 7. Parathyroid surgery 8. Bilateral elbow tendon surgery 9. Knee replacement 10. cardiac stent Medical History: Hypothyroid Hypertension Joint pain related to Aromasin improving on cymbalta developed DVT right leg in 2010 with a symptomatic pulmonary emboli Social History: Nicotine: Negative Alcohol: Negative Drugs: Negative Review of systems: HEENT: Wears glasses, otherwise negative Lungs: Negative Cardiac: Hypertension, cardiac stent GI: Negative : Status post total abdominal hysterectomy Musculoskeletal: Joint pain possibly related to the Aromasin neurologic: Negative Hematologic: Baby aspirin daily ALLERGIES: As per HPI Objective - Vital Signs Vital signs: Intake & Output 05/19/23 05/20/23 05/20/23 18:59 06:59 18:59 Weight 77.111 kg - Constitutional General appearance: Present: cooperative - EENT Eyes: Present: EOMI ENT: Present: hearing grossly normal - Neck Neck: Present: normal ROM - Respiratory Respiratory: bilateral: CTA - Cardiovascular Heart sounds: normal: S1, S2 - Integumentary Integumentary: Present: normal turgor - Musculoskeletal Musculoskeletal: Present: gait normal - Psychiatric Psychiatric: Present: A&O x's 3, appropriate affect, intact judgment & insight - Additional findings Additional findings: Breast Exam: BRA: 42D inspection: Patient status post right breast lumpectomy, left breast mastopexy Palpation: Right breast: Multi-positional exam fibrocystic changes no dominant masses or nodules of concern; attention at the lumpectomy site does not reveal any lumps masses or nodules of concern on today's visit Right axilla: No adenopathy of concern Left breast: Multi-positional exam fibrocystic changes no dominant masses or nodules of concern Left axilla: No adenopathy of concern Fungal infection under both breast Assessment and Plan Assessment: Impression: Right breast status post lumpectomy and radiation therapy for DCIS, no evidence of recurrent disease at this time Fibrocystic breast changes Status post left breast mastopexy Bilateral mammogram on benign BIRADS 2 Patient has intermittent right chest wall discomfort Plan: Bilateral mammogram in May 2024 with examination at that time Patient to follow up sooner any questions or concerns related to her breast Nystatin for fungal infection under her left breast Continue Aromasin as per medical oncology Appointment physical therapy secondary to discomfort right chest wall CC: Dr. Pan
== END ==
LOC: WWCWWP 10:36
PROVIDERS: ATTEND Surgery
DX: N60.11 Diffuse cystic mastopathy of right breast (principal); E03.9 Hypothyroidism, unspecified; I10 Essential (primary) hypertension; R07.89 Other chest pain; Z85.3 Personal history of malignant neoplasm of breast; Z90.12 Acquired absence of left breast and nipple; Z92.3 Personal history of irradiation; Z86.711 Personal history of pulmonary embolism; Z86.718 Personal history of other venous thrombosis and embolism; Z95.5 Presence of coronary angioplasty implant and graft; Z88.5 Allergy status to narcotic agent; Z88.8 Allergy status to other drugs, medicaments and biological substances; Z79.82 Long term (current) use of aspirin; Z79.899 Other long term (current) drug therapy; Z79.02 Long term (current) use of antithrombotics/antiplatelets; Z79.890 Hormone replacement therapy

== ENCOUNTER → 2023-07-19 | Outpatient (CLI) | payer MEDICARE, OTHER ==
--- NOTE | 2023-07-19 11:12 | XR ---
EXAMINATION TYPE: XR ribs RT w pa chest xray DATE OF EXAM: 07/19/2023 COMPARISON: 12/05/2021 chest x-ray HISTORY: Pleurodynia TECHNIQUE: Frontal chest. Two-view right ribs FINDINGS: No pneumothorax is evident. Heart size is normal. Pulmonary vasculature is normal. Lungs ar e clear Right ribs appear intact. No displaced fractures are identified. No pleural effusion is identified. IMPRESSION: 1. No acute osseous abnormality right ribs
== END | disposition home or self-care (01) ==
LOC: RADXRMAIN 10:42
PROVIDERS: ATTEND Family Medicine
DX: R07.81 Pleurodynia (principal)

== ENCOUNTER → 2023-07-27 | Outpatient (CLI) | payer MEDICARE, OTHER | LOC: CPPFTMAIN 15:13 | PROVIDERS: ATTEND Family Medicine | DX: J45.20 Mild intermittent asthma, uncomplicated (principal); Z88.5 Allergy status to narcotic agent; Z88.1 Allergy status to other antibiotic agents; Z79.82 Long term (current) use of aspirin; Z79.899 Other long term (current) drug therapy | CPT/HCPCS: 94060; 94726; 94729 ==

== ENCOUNTER 2023-11-17 15:41 | Observation (INO) | payer MEDICARE, OTHER ==
[2023-11-17 16:48] LABS: Basophils % (A) 0 %; Eosinophils % (A) 0 %; HCT 36.1 % (34.0-46.0); HGB 12.2 gm/dL (11.4-16.0); Lymphocytes # (A) 1.6 k/uL (1.0-4.8); Lymphocytes % (A) 10 %; MCH 31.5 pg (25.0-35.0); MCHC 33.7 g/dL (31.0-37.0); MCV 93.6 fL (80.0-100.0); Mean Platelet Volume 8.8; Monocytes # (A) 0.5 k/uL (0-1.0); Monocytes % (A) 3 %; Neutrophils # (A) 13.6 k/uL (1.3-7.7); Neutrophils % (A) 86 %; Platelet Count 240 k/uL (150-450); RBC 3.86 m/uL (3.80-5.40); RDW 13.4 % (11.5-15.5); WBC 15.7 k/uL (3.8-10.6)
[2023-11-17 16:57] LABS: INR 0.9 (<1.2); Partial Thromboplastin Time 23.6 sec (22.0-30.0); Prothrombin Time 10.2 sec (10.0-12.5)
[2023-11-17 16:58] LABS: ALT 18 U/L (4-34); AST 26 U/L (14-36); African American GFR (CKD) 56 (>60 ml/min/1.73 sqM); Albumin 4.6 g/dL (3.5-5.0); Alkaline Phosphatase 79 U/L (38-126); Anion Gap 11 mmol/L; Blood Urea Nitrogen 23 mg/dL (7-17); Calcium 9.7 mg/dL (8.4-10.2); Carbon Dioxide 23 mmol/L (22-30); Chloride 109 mmol/L (98-107); Glucose 180 mg/dL (74-99); Magnesium 2.1 mg/dL (1.6-2.3); Non-African American GFR(CKD) 49 (>60 ml/min/1.73 sqM); Potassium 4.3 mmol/L (3.5-5.1); Sodium 143 mmol/L (137-145); Total Bilirubin 0.7 mg/dL (0.2-1.3); Total Protein 7.3 g/dL (6.3-8.2)
--- NOTE | 2023-11-17 17:54 | ED ---
Chest Pain HPI - General Source: patient, RN notes reviewed Mode of arrival: ambulatory Limitations: no limitations <Trista Donaldson - Last Filed: 11/17/23 17:53> - General Source: RN notes reviewed, old records reviewed Mode of arrival: ambulatory Limitations: no limitations - History of Present Illness MD Complaint: chest pain, other (To the back) -: hour(s) Onset: during rest, during exertion Pain Location: substernal Pain Radiation: back Severity: severe Severity scale (1-10): 8 Quality: tightness, sharp Consistency: intermittent Improves With: nothing Worsens With: nothing Anginal Symptoms: dyspnea, sense of impending doom Other Symptoms: palpitations Treatments Prior to Arrival: none <Dilip Sultana - Last Filed: 11/23/23 22:53> - General Chief Complaint: Chest Pain Stated Complaint: chest pain Time Seen by Provider: 11/17/23 17:53 - History of Present Illness Initial Comments: Quick [id number] female with history of 3 stents presenting to the ER with chief complaint of chest pain. States around 1 PM this morning she sat down after having a meal and began to feel a substernal chest pain with associated shortness of breath. She took a nitroglycerin and a baby aspirin which improved symptoms but states the discomfort persisted and is now radiating into the middle of her back. (Trista Donaldson) This is a 78-year-old female to the ER for evaluation of chest pain patient has significant substernal chest pain rating to the back which is persistent here in the emergency department is accompanied with tachycardia and elevated blood pressure (Dilip Sultana) - Related Data Home Medications Medication Instructions Recorded Confirmed Levothyroxine Sodium [Synthroid] 75 mcg PO DAILY 01/28/17 11/17/23 Aspirin 81 mg PO DAILY 02/02/17 11/17/23 C,E,Zinc,Copper 11/Gwglr2b/Lut 1 cap PO DAILY 05/19/18 11/17/23 [Ocuvite Adult 50 Plus Softgel] Benazepril HCl [Lotensin] 40 mg PO DAILY 12/18/19 11/18/23 Exemestane [Aromasin] 25 mg PO DAILY 12/18/19 11/17/23 Atorvastatin [Lipitor] 40 mg PO DAILY 03/28/20 11/17/23 Isosorbide Mononitrate ER [Imdur] 30 mg PO DAILY 09/24/21 11/18/23 Albuterol Inhaler [Ventolin Hfa 2 puff INHALATION RT-Q4H PRN 11/17/23 11/17/23 Inhaler] Cholecalciferol [Vitamin D3 (25 25 mcg PO BID 11/17/23 11/17/23 Mcg = 1000 Iu)] Pantoprazole [Protonix] 40 mg PO DAILY 11/17/23 11/17/23 Previous Rx's Medication Instructions Recorded Clopidogrel [Plavix] 75 mg PO DAILY #30 tab 11/19/23 Metoprolol Tartrate [Lopressor] 25 mg PO BID #60 tab 11/19/23 amLODIPine [Norvasc] 5 mg PO DAILY #30 tab 11/19/23 Allergies Allergy/AdvReac Type Severity Reaction Status Date / Time Tetracyclines Allergy Rash/Hives Verified 11/17/23 21:13 codeine AdvReac Nausea & Verified 11/17/23 21:13 Vomiting Review of Systems ROS Other: All systems not noted in ROS Statement are negative. <Trista Donaldson - Last Filed: 11/17/23 17:53> ROS Other: All systems not noted in ROS Statement are negative. <Dilip Sultana - Last Filed: 11/23/23 22:53> ROS Statement: Those systems with pertinent positive or pertinent negative responses have been documented in the HPI. Past Medical History Past Medical History: Cancer, Deep Vein Thrombosis (DVT), GERD/Reflux, Hyperlipidemia, Hypertension, Myocardial Infarction (NE), Osteoarthritis (OA), Thyroid Disorder Additional Past Medical History / Comment(s): 2016 DVT RT CALF, "throat spasms r/t neuro esophagus", breast cancer Last Myocardial Infarction Date:: APPROX 2006 History of Any Multi-Drug Resistant Organisms: None Reported Past Surgical History: Adenoidectomy, Cholecystectomy, Heart Catheterization With Stent, Hysterectomy, Joint Replacement, Orthopedic Surgery, Tonsillectomy Additional Past Surgical History / Comment(s): COLONOSCOPY, right knee replacement, BSO. BILAT CATARACTS, partial thyroidectomy, lumpectomy rt breast 07/18/19 with 20 tx of radiation Past Anesthesia/Blood Transfusion Reactions: Previous Problems w/ Anesthesia Additional Past Anesthesia/Blood Transfusion Reaction / Comment(s): "SLOW TO WAKE UP" Date of Last Stent Placement:: 2006 ? Past Psychological History: Anxiety Smoking Status: Never smoker Past Alcohol Use History: Rare Past Drug Use History: None Reported - Past Family History Mother History Unknown: Yes Additional Family Medical History / Comment(s): PT ADOPTED-FAMILY HX UNKNOWN. <Trista Donaldson - Last Filed: 11/17/23 17:53> General Exam Limitations: no limitations <Trista Donaldson - Last Filed: 11/17/23 17:53> Limitations: no limitations General appearance: alert, in no apparent distress, anxious Head exam: Present: atraumatic, normocephalic, normal inspection Eye exam: Present: normal appearance, PERRL, EOMI. Absent: scleral icterus, conjunctival injection, periorbital swelling ENT exam: Present: normal exam, mucous membranes moist Neck exam: Present: normal inspection. Absent: tenderness, meningismus, lymphadenopathy Respiratory exam: Present: normal lung sounds bilaterally. Absent: respiratory distress, wheezes, rales, rhonchi, stridor Cardiovascular Exam: Present: regular rate, normal rhythm, normal heart sounds. Absent: systolic murmur, diastolic murmur, rubs, gallop, clicks GI/Abdominal exam: Present: soft, normal bowel sounds. Absent: distended, tenderness, guarding, rebound, rigid Extremities exam: Present: normal inspection, full ROM, normal capillary refill. Absent: tenderness, pedal edema, joint swelling, calf tenderness Back exam: Present: normal inspection Neurological exam: Present: alert, oriented X3, CN II-XII intact Psychiatric exam: Present: normal affect, normal mood Skin exam: Present: warm, dry, intact, normal color. Absent: rash <Dilip Sultana - Last Filed: 11/23/23 22:53> - General Exam Comments Initial Comments: Visual Physical Exam Vital signs reviewed General: Well-appearing, nontoxic, no acute distress. Head: Normocephalic, atraumatic Eyes: PERRLA, EOMI ENT: Airway patent Chest: Nonlabored breathing Skin: No visual rash, normal skin tone Neuro: Alert and oriented 3 Musculoskeletal: No gross abnormalities (Trista Donaldson) Course <Dilip Sultana - Last Filed: 11/23/23 22:53> Vital Signs 11/17/23 11/17/23 11/17/23 15:47 21:02 22:48 Temperature 98 F Pulse Rate 116 H 80 69 Pulse Rate [ Sustainability Specialist ] Pulse Rate [ Pulse Oximetery ] Respiratory 16 18 18 Rate Blood Pressure 162/79 153/85 153/84 Blood Pressure [Left Arm] O2 Sat by Pulse 98 99 97 Oximetry 11/18/23 11/18/23 11/18/23 02:46 07:00 08:04 Temperature 97.8 F 98.2 F Pulse Rate 60 Pulse Rate [ 73 Sustainability Specialist ] Pulse Rate [ Pulse Oximetery ] Respiratory 18 17 Rate Blood Pressure 138/69 Blood Pressure 142/76 [Left Arm] O2 Sat by Pulse 98 96 98 Oximetry 11/18/23 11/18/23 11/18/23 12:15 12:28 12:30 Temperature 98.1 F Pulse Rate Pulse Rate [ Sustainability Specialist ] Pulse Rate [ 60 91 Pulse Oximetery ] Respiratory 16 17 16 Rate Blood Pressure Blood Pressure 147/77 152/81 [Left Arm] O2 Sat by Pulse 96 91 L Oximetry 11/18/23 11/18/23 11/18/23 12:45 13:00 13:30 Temperature Pulse Rate Pulse Rate [ Sustainability Specialist ] Pulse Rate [ 57 L 55 L 59 L Pulse Oximetery ] Respiratory 16 16 16 Rate Blood Pressure Blood Pressure 152/80 149/74 152/78 [Left Arm] O2 Sat by Pulse 91 L 92 L 93 L Oximetry 11/18/23 11/18/23 11/18/23 14:00 15:00 16:00 Temperature Pulse Rate Pulse Rate [ Sustainability Specialist ] Pulse Rate [ 61 63 62 Pulse Oximetery ] Respiratory 16 16 16 Rate Blood Pressure Blood Pressure 164/78 175/82 167/82 [Left Arm] O2 Sat by Pulse 95 96 94 L Oximetry - Reevaluation(s) Reevaluation #1: 11/17/23 20:30 Medical records reviewed (Dilip Sultana) Reevaluation #2: 11/17/23 20:30 Patient symptoms are persistent here in the ER with chest pain (Dilip Sultana) Reevaluation #3: 11/17/23 20:31 Patient informed of results and questions answered Studies chest x-ray CTA chest negative for acute disease (Dilip Sultana) Reevaluation #4: Was pt. sent in by a medical professional or institution ([facility]ara, UPPER LINING CEMENTER, urgent care, hospital, or long-term...) When possible be specific @ -no Did you speak to anyone other than the patient for history (EMS, parent, family, police, friend...)? What history was obtained from this source @ -no Did you review nursing and triage notes (agree or disagree)? Why? @ -agree Are old charts reviewed (outside hosp., previous admission, EMS record, old EKG, old radiological studies, urgent care reports/EKG's, long-term records)? Report findings @ -yes Differential Diagnosis (chest pain, altered mental status, abdominal pain women, abdominal pain men, vaginal bleeding, weakness, fever, dyspnea, syncope, headache, dizziness, GI bleed, back pain, seizure, CVA, palpatations, mental health, musculoskeletal)? @ -prior EKG interpreted by me (3pts min.). @ -yes X-rays interpreted by me (1pt min.). @ -yes negative for acute disease CT interpreted by me (1pt min.). @ -no U/S interpreted by me (1pt. min.). @ -no What testing was considered but not performed or refused? (CT, X-rays, U/S, labs)? Why? @ -none What meds were considered but not given or refused? Why? @ -none Did you discuss the management of the patient with other professionals (professionals i.e. [facility] Jara, UPPER LINING CEMENTER, lab, RT, psych nurse, social media marketer, swage tender, teacher, small business banking officer, caser)? Give summary @ -no Was smoking cessation discussed for >3mins.? @ -no Was critical care preformed (if so, how long)? @ -no Were there social determinants of health that impacted care today? How? (Homelessness, low income, unemployed, alcoholism, drug addiction, transportation, low edu. Level, literacy, decrease access to med. care, halfway, rehab)? @ -none Was there de-escalation of care discussed even if they declined (Discuss DNR or withdrawal of care, Hospice)? DNR status @ -no What co-morbidities impacted this encounter? (DM, HTN, Smoking, COPD, CAD, Cancer, CVA, ARF, Chemo, Hep., AIDS, mental health diagnosis, sleep apnea, mo rbid obesity)? @ -none Was patient admitted / discharged? Hospital course, mention meds given and route, prescriptions, significant lab abnormalities, going to OR and other pertinent info. @ - 78 female to be admitted for evaluation of chest pain. Patient has significant and persistent chest pain here in the ER will admit for cardiology evaluation with history of stents Admit Undiagnosed new problem with uncertain prognosis? @ -no Drug Therapy requiring intensive monitoring for toxicity (Heparin, Nitro, Insulin, Cardizem)? @ -no Were any procedures done? @ -no Diagnosis/symptom? @ -Chest pain Acute, or Chronic, or Acute on Chronic? @ -Acute Uncomplicated (without systemic symptoms) or Complicated (systemic symptoms)? @ -Complicated Side effects of treatment? @ -no Exacerbation, Progression, or Severe Exacerbation? @ -exacerbation Poses a threat to life or bodily function? How? (Chest pain, [place], NE, pneumonia, PE, COPD, DKA, ARF, appy, cholecystitis, CVA, Diverticulitis, Homicidal, Suicidal, threat to staff... and all critical care pts) @ -yes (Dilip Sultana) Reevaluation #5: Differential Chest Pain: Stable Angina, Unstable Angina, STEMI, NSTEMI Aortic Dissection, Pneumothorax, Musculoskeletal, Esophageal Spasm GERD, Cholecystitis, Pancreatitis, Zoster, this is not meant to be an all-inclusive list. (Dilip Sultana) - Consultations Consultation #1: Spoke with [facility] who agrees to admit this patient (Dilip Sultana) Chest Pain MDM <Trista Donaldson - Last Filed: 11/17/23 17:53> <Dilip Sultana - Last Filed: 11/23/23 22:53> - MDM I completed the quick note portion of this chart signed Trista Donaldson PA-C (Trista Donaldson) 78 female to be admitted for evaluation of chest pain. Patient has significant and persistent chest pain here in the ER will admit for cardiology evaluation with history of stents (Dilip Sultana) Critical Care Time Critical Care Time: Yes Total Critical Care Time: 31 <Dilip Sultana - Last Filed: 11/23/23 22:53> Disposition <Trista Donaldson - Last Filed: 11/17/23 17:53> Is patient prescribed a controlled substance at d/c from ED?: No Time of Disposition: 20:30 <Dilip Sultana - Last Filed: 11/23/23 22:53> Clinical Impression: Chest pain, Unstable angina pectoris Disposition: ADMITTED IP TO THIS HOSP Condition: Stable
--- NOTE | 2023-11-17 18:30 | XR ---
EXAMINATION TYPE: XR chest 2V DATE OF EXAM: 11/17/2023 COMPARISON: Chest x-rays 05/26/2024 HISTORY: Chest pain TECHNIQUE: Frontal and lateral views of the chest are obtained. FINDINGS: There is no focal air space opacity, pleural effusion, or pneumothorax seen. The cardiac silhouette size is mildly enlarged. The osseous structures are intact. Cholecystectomy clips are no irish. IMPRESSION: Mild Cardiomegaly without acute pulmonary process.
[2023-11-17] MEDS ORDERED: MORPHINE SULFATE 4 MG/ML SYRINGE IV PRN ×2 (20:29)
[2023-11-17] MEDS ORDERED: NITROGLYCERIN SL TABS 0.4 MG TAB SUBLINGUAL PRN (20:32)
--- NOTE | 2023-11-17 21:15 | CT ---
EXAMINATION TYPE: CT angio chest CT DLP: 360.1 mGycm, Automated exposure control for dose reduction was used. DATE OF EXAM: 11/17/2023 8:52 PM COMPARISON: Chest radiograph from same day. CLINICAL INDICATION:Female, 78 years old with history of PE; CP, SOB R/O PE. TECHNIQUE/CONTRAST: CTA scan of the thorax is performed with IV Contrast, patient injected with 80 ml mL of Isovue 370, M IP images are created and reviewed these are created on a separate workstation.. FINDINGS: Pulmonary Artery: There is no evidence for a filling defect within the pulmonary vasculature to sugge st acute pulmonary embolism. The pulmonary artery is of normal size. Lungs/Pleura: Scattered areas of mosaic attenuation identified, likely related to phase of inspiratio n/expiration. No pleural effusions are identified. No suspicious pulmonary nodules or masses. Pleural -based scarring is identified in the right lung base. Airway: Large airways are patent. Heart: Heart is within normal limits for size. Vasculature: Mild atherosclerotic calcifications are present throughout the aorta and its branches. Mediastinum: No gross evidence of adenopathy. Musculoskeletal: Flowing osteophytosis of the mid thoracic spine. Soft Tissues: Unremarkable. Lower neck: No significant findings. Upper Abdomen: No significant findings. IMPRESSION: No evidence of pulmonary embolism or acute process.
[2023-11-17] MEDS: METOPROLOL TARTRATE 25 MG TAB PO SCH (22:36)
[2023-11-17] MEDS: HEPARIN SOD,PORK IN 0.45% NACL 25,000 UNIT in 0.45% NACL 1 250ML.BAG IV SCH (22:37)
[2023-11-17] MEDS: HEPARIN SODIUM 1,000 UN/ML (10ML VL) IV ONE (22:45)
[2023-11-18] MEDS: ACETAMINOPHEN TAB 325 MG TAB PO PRN (01:08)
[2023-11-18 07:08] LABS: Mean Platelet Volume 8.3; Platelet Count 232 k/uL (150-450)
[2023-11-18] MEDS: ASPIRIN 325 MG TAB PO SCH (09:02)
[2023-11-18] MEDS ORDERED: NITROGLYCERIN SL TABS 0.4 MG TAB SUBLINGUAL PRN (10:19)
[2023-11-18] MEDS ORDERED: ALPRAZolam 0.25 MG TAB PO PRN (10:19)
[2023-11-18 10:51] LABS: LDL Cholesterol,Calculated 86.1 mg/dL (0.0-131.0); VLDL Calculation 12.24 mg/dL (5.00-40.00)
[2023-11-18] MEDS: ATORVASTATIN 80 MG TAB PO STA (10:53)
[2023-11-18] MEDS: IV FLUID CONTINUATION 950 ML IV ONE (10:59)
[2023-11-18] MEDS ORDERED: LIDOCAINE 1% INJ 10MG/ML (20 ML MDV) ONE (11:06)
[2023-11-18] MEDS ORDERED: fentaNYL (PF) 50 MCG/ML 2 ML AMP ONE (11:09)
[2023-11-18] MEDS ORDERED: HEPARIN SODIUM 1,000 UN/ML (10ML VL) ONE (11:13)
[2023-11-18] MEDS: MIDAZOLAM 2 MG/2 ML VIAL IVP ONE (11:27)
[2023-11-18] MEDS: LIDOCAINE 1% INJ 10MG/ML (20 ML MDV) SQ ONE (11:28)
[2023-11-18] MEDS: fentaNYL (PF) 50 MCG/1 ML VIAL IVP ONE (11:30)
[2023-11-18] MEDS: IOPAMIDOL-370 100ML BTL INJ ONE (11:51)
[2023-11-18] MEDS: SODIUM CHLORIDE 0.9% 1,000 ML in EMPTY BAG 1 BAG IV SCH (12:16)
[2023-11-18] MEDS ORDERED: ALBUTEROL HFA INHALER INHALATION PRN (14:46)
--- NOTE | 2023-11-18 14:56 | P.HPIM ---
History of Present Illness Patient pleasant 78-year-old female with stents in the past came in with substernal chest pain pressure-like sensation squeezing kind of pain which started after eating a bologna sandwich but not burning sensation. Patient any fever chills chest pain is nonpleuritic in nature patient had a CT angio of the chest which did not show any pulm embolism pneumonia or aortic dissection. Patient positive troponin is negative and the third 1 is slightly elevated to 0.[address]-T wave changes seen in the anterolateral leads because of which patient underwent cardiac catheterization report of which is pending although patient did not require any stents and no significant change compared to her previous catheterization. REVIEW OF SYSTEMS: CONSTITUTIONAL: No fever, no malaise, no fatigue. HEENT: No recent visual problems or hearing problems. Denied any sore throat. CARDIOVASCULAR: No orthopnea, PND, no palpitations, no syncope. PULMONARY: No shortness of breath, no cough, no hemoptysis. GASTROINTESTINAL: No diarrhea, no nausea, no vomiting, no abdominal pain. NEUROLOGICAL: No headaches, no weakness, no numbness. HEMATOLOGICAL: Denies any bleeding or petechiae. GENITOURINARY: Denies any burning micturition, frequency, or urgency. MUSCULOSKELETAL/RHEUMATOLOGICAL: Denies any joint pain, swelling, or any muscle pain. ENDOCRINE: Denies any polyuria or polydipsia. The rest of the 14-point review of systems is negative. PHYSICAL EXAMINATION: GENERAL: The patient is alert and oriented x3, not in any acute distress. Well developed, well nourished. HEENT: Pupils are round and equally reacting to light. EOMI. No scleral icterus. No conjunctival pallor. Normocephalic, atraumatic. No pharyngeal erythema. No thyromegaly. CARDIOVASCULAR: S1 and S2 present. No murmurs, rubs, or gallops. PULMONARY: Chest is clear to auscultation, no wheezing or crackles. ABDOMEN: Soft, nontender, nondistended, normoactive bowel sounds. No palpable organomegaly. MUSCULOSKELETAL: No joint swelling or deformity. EXTREMITIES: No cyanosis, clubbing, or pedal edema. NEUROLOGICAL: Gross neurological examination did not reveal any focal deficits. SKIN: No rashes. Assessment and plan Possible non-ST elevation myocardial infarction. Patient had a cardiac catheterization and did not require any stents cath report still pending -Chronic kidney disease stage II with baseline creatinine of around 1.1. P atient present creatinine is around that -Leukocytosis without any clear evidence of infection at this time -Hypertension -History of DVT presently not on any anticoagulation -Gastroesophageal reflux disease -Hyperlipidemia -Hypothyroidism -Coronary disease with stents in the past For above-mentioned chronic medical problems patient was resumed on appropriate home medications DVT prophylaxis: Patient is on IV heparin at this time Past Medical History Past Medical History: Cancer, Deep Vein Thrombosis (DVT), GERD/Reflux, Hyperlipidemia, Hypertension, Myocardial Infarction ([place]), Osteoarthritis (OA), Thyroid Disorder Additional Past Medical History / Comment(s): 2015 DVT RT CALF, "throat spasms r/t neuro esophagus", right breast cancer 2019 with lumpectomy 25 radiation tx Last Myocardial Infarction Date:: 2006 History of Any Multi-Drug Resistant Organisms: None Reported Past Surgical History: Adenoidectomy, Cholecystectomy, Heart Catheterization With Stent, Hysterectomy, Joint Replacement, Orthopedic Surgery, Tonsillectomy Additional Past Surgical History / Comment(s): COLONOSCOPY, bilateral knee repl acement, BSO. BILAT CATARACTS, partial thyroidectomy, lumpectomy rt breast 07/18/19 with 25 tx of radiation, heart cath with 3 stents. Past Anesthesia/Blood Transfusion Reactions: Previous Problems w/ Anesthesia Additional Past Anesthesia/Blood Transfusion Reaction / Comment(s): "SLOW TO WAKE UP" Date of Last Stent Placement:: 2021 Past Psychological History: No Psychological Hx Reported Smoking Status: Never smoker Past Alcohol Use History: Rare Past Drug Use History: None Reported - Past Family History Mother History Unknown: Yes Additional Family Medical History / Comment(s): PT ADOPTED-FAMILY HX UNKNOWN. Medications and Allergies Home Medications Medication Instructions Recorded Confirmed Type Levothyroxine Sodium [Synthroid] 75 mcg PO DAILY 01/28/17 11/17/23 History Aspirin 81 mg PO DAILY 02/02/17 11/17/23 History C,E,Zinc,Copper 11/Rmjvx9e/Lut 1 cap PO DAILY 05/19/18 11/17/23 History [Ocuvite Adult 50 Plus Softgel] Benazepril HCl [Lotensin] 40 mg PO DAILY 12/18/19 11/18/23 History Exemestane [Aromasin] 25 mg PO DAILY 12/18/19 11/17/23 History Atorvastatin [Lipitor] 40 mg PO DAILY 03/28/20 11/17/23 History Isosorbide Mononitrate ER [Imdur] 30 mg PO DAILY 09/24/21 11/18/23 History Albuterol Inhaler [Ventolin Hfa 2 puff INHALATION RT-Q4H PRN 11/17/23 11/17/23 History Inhaler] Cholecalciferol [Vitamin D3 (25 25 mcg PO BID 11/17/23 11/17/23 History Mcg = 1000 Iu)] Pantoprazole [Protonix] 40 mg PO DAILY 11/17/23 11/17/23 History Propranolol HCl [Propranolol HCl 80 mg PO DAILY 11/17/23 11/17/23 History ER] Allergies Allergy/AdvReac Type Severity Reaction Status Date / Time Tetracyclines Allergy Rash/Hives Verified 11/17/23 21:13 codeine AdvReac Nausea & Verified 11/17/23 21:13 Vomiting Physical Exam Vitals: Vital Signs Temp Pulse Pulse Pulse Resp BP BP 11/18/23 14:00 61 16 164/78 11/18/23 13:30 59 L 16 152/78 11/18/23 13:00 55 L 16 149/74 11/18/23 12:45 57 L 16 152/80 11/18/23 12:30 91 16 152/81 11/18/23 12:28 17 11/18/23 12:15 98.1 F 60 16 147/77 11/18/23 08:04 11/18/23 07:00 98.2 F 73 17 142/76 11/18/23 02:46 97.8 F 60 18 138/69 11/17/23 22:48 69 18 153/84 11/17/23 21:02 80 18 153/85 11/17/23 15:47 98 F 116 H 16 162/79 Pulse Ox 11/18/23 14:00 95 11/18/23 13:30 93 L 11/18/23 13:00 92 L 11/18/23 12:45 91 L 11/18/23 12:30 91 L 11/18/23 12:28 11/18/23 12:15 96 11/18/23 08:04 98 11/18/23 07:00 96 11/18/23 02:46 98 11/17/23 22:48 97 11/17/23 21:02 99 11/17/23 15:47 98 Intake and Output 11/17/23 11/18/23 11/18/23 22:59 06:59 14:59 Intake Total 188.471 Balance 188.471 Intake: IV 100 Intake, IV Titration 88.471 Amount Heparin Sod,Pork in 0.45% 88.471 NaCl 25,000 unit In 0.45 % NaCl 1 250ml.bag @ 12 UNITS/KG/HR 9.362 mls/hr IV .Q24H [facility] Rx#: [id number] Other: Voiding Method Toilet # Voids 1 Weight 78.018 kg 78.018 kg Results CBC & Chem 7: 11/18/23 06:49 11/17/23 16:34 Labs: Abnormal Lab Results - Last 24 Hours (Table) 11/17/23 11/17/23 11/17/23 Range/Units 16:34 16:34 23:47 WBC 15.7 H (3.8-10.6) k/uL Neutrophils # 13.6 H (1.3-7.7) k/uL APTT (22.0-30.0) sec Chloride 109 H (98-107) mmol/L BUN 23 H (7-17) mg/dL Creatinine 1.10 H (0.52-1.04) mg/dL Glucose 180 H (74-99) mg/dL Troponin I 0.038 H* (0.000-0.034) ng/mL HDL Cholesterol (40.00-60.00) mg/dL 11/18/23 11/18/23 Range/Units 06:49 06:49 WBC (3.8-10.6) k/uL Neutrophils # (1.3-7.7) k/uL APTT 86.7 H (22.0-30.0) sec Chloride (98-107) mmol/L BUN (7-17) mg/dL Creatinine (0.52-1.04) mg/dL Glucose (74-99) mg/dL Troponin I (0.000-0.034) ng/mL HDL Cholesterol 65.70 H (40.00-60.00) mg/dL Thrombosis Risk Factor Assmnt - Choose All That Apply Any of the Below Risk Factors Present?: Yes Each Factor Represents 1 point: Obesity (BMI >25) Other Risk Factors: Yes Each Risk Factor Represents 2 Points: Malignancy Each Risk Factor Represents 3 Points: Age 75 years or older, History of DVT/PE Other congenital or acquired thrombophilia - If yes, enter type in comment: No Thrombosis Risk Factor Assessment Total Risk Factor Score: 9 Thrombosis Risk Factor Assessment Level: High Risk
[2023-11-18] MEDS: LEVOTHYROXINE 75 MCG TAB PO SCH (15:01)
[2023-11-18] MEDS: ISOSORBIDE MONONITRATE ER 30 MG TAB.ER.24H PO SCH (15:01)
[2023-11-18] MEDS: NON FORMULARY DRUG (Exemestane [Aromasin] 25 MG Tablet) PO SCH (15:01)
[2023-11-18] MEDS: PANTOPRAZOLE 40 MG TABLET PO SCH (15:02)
--- NOTE | 2023-11-18 17:34 | P.CRDCN ---
History of Present Illness Consult date: 11/18/23 History of present illness: HISTORY OF PRESENTING ILLNESS Patient is a 78-year-old female who follows up with Dr. Mabry in cardiology clinic. She has prior history of CAD s/p PCI to diagonal 1 artery. In 2021 patient had NSTEMI for which she had a heart catheterization which showed GENETIC COUNSELLOR due to in-stent stenosis of diagonal 1 stent. It also showed severe proximal LAD disease and severe proximal OM 2 disease which were intervened with PCI and stenting. Since then patient has been doing well. This time patient presented to the hospital because of substernal chest pressure and squeezing-like sensation that started yesterday afternoon. At that time patient was not doing anything significantly strenuous. This pain was associated with diaphoresis difficulty breathing and some nausea. On admission to ER patient had uptrending troponin pattern of less than 0.012, 0.03, 0.038. She had normal sinus rhythm with T wave inversions in inferolateral leads. On comparing to old ECGs, T wave inversion appears to be chronic. REVIEW OF SYSTEMS 14 point review of system is negative except what is mentioned above in HPI. PHYSICAL EXAMINATION Vital signs reviewed. Head: Normocephalic. Eyes: Sclerae nonicteric. Neck: Brisk carotid upstroke, no jugular venous distention. Lungs: Clear to auscultation. Heart: Regular rate and rhythm, S1-S2, no S3, no murmur or rub. Abdomen: Soft nontender, positive bowel sounds. Extremities: No edema, intact distal pulses. Neuro: Alert, oritented, no focal deficits. Detailed neuro exam was not performed. ASSESSMENT NSTEMI, likely type I CAD s/p PCI to OM 2 and proximal LAD. Known GENETIC COUNSELLOR of diagonal 1 stent Essential hypertension Dyslipidemia Obesity Chronic T wave inversions in inferolateral leads. PLAN Plan for heart catheterization procedure for NSTEMI and ongoing chest pain. I explained the risk factors of possible stroke [place] and injury to coronary arteries or vascular injury requiring emergent surgery. Patient understands these risk factors and would like to proceed. Recommendations to follow cardiac cath results Mathieu Vyas MD, FACC, RPVI Thank you for allowing [facility] to participate in this patient's care. Feel free to reach out in case of any followup questions. Past Medical History Past Medical History: Cancer, Deep Vein Thrombosis (DVT), GERD/Reflux, Hyperlipidemia, Hypertension, Myocardial Infarction ([place]), Osteoarthritis (OA), Thyroid Disorder Additional Past Medical History / Comment(s): 2016 DVT RT CALF, "throat spasms r/t neuro esophagus", right breast cancer 2019 with lumpectomy 25 radiation tx Last Myocardial Infarction Date:: APPROX 2006 History of Any Multi-Drug Resistant Organisms: None Reported Past Surgical History: Adenoidectomy, Cholecystectomy, Heart Catheterization With Stent, Hysterectomy, Joint Replacement, Orthopedic Surgery, Tonsillectomy Additional Past Surgical History / Comment(s): COLONOSCOPY, bilateral knee rep lacement, BSO. BILAT CATARACTS, partial thyroidectomy, lumpectomy rt breast 07/18/19 with 25 tx of radiation, heart cath with 3 stents. Past Anesthesia/Blood Transfusion Reactions: Previous Problems w/ Anesthesia Additional Past Anesthesia/Blood Transfusion Reaction / Comment(s): "SLOW TO WAKE UP" Date of Last Stent Placement:: 2021 Past Psychological History: No Psychological Hx Reported Smoking Status: Never smoker Past Alcohol Use History: Rare Past Drug Use History: None Reported - Past Family History Mother History Unknown: Yes Additional Family Medical History / Comment(s): PT ADOPTED-FAMILY HX UNKNOWN. Medications and Allergies Home Medications Medication Instructions Recorded Confirmed Type Levothyroxine Sodium [Synthroid] 75 mcg PO DAILY 01/28/17 11/17/23 History Aspirin 81 mg PO DAILY 02/02/17 11/17/23 History C,E,Zinc,Copper 11/Vtuff4e/Lut 1 cap PO DAILY 05/19/18 11/17/23 History [Ocuvite Adult 50 Plus Softgel] Benazepril HCl [Lotensin] 40 mg PO DAILY 12/18/19 11/18/23 History Exemestane [Aromasin] 25 mg PO DAILY 12/18/19 11/17/23 History Atorvastatin [Lipitor] 40 mg PO DAILY 03/28/20 11/17/23 History Isosorbide Mononitrate ER [Imdur] 30 mg PO DAILY 09/24/21 11/18/23 History Albuterol Inhaler [Ventolin Hfa 2 puff INHALATION RT-Q4H PRN 11/17/23 11/17/23 History Inhaler] Cholecalciferol [Vitamin D3 (25 25 mcg PO BID 11/17/23 11/17/23 History Mcg = 1000 Iu)] Pantoprazole [Protonix] 40 mg PO DAILY 11/17/23 11/17/23 History Propranolol HCl [Propranolol HCl 80 mg PO DAILY 11/17/23 11/17/23 History ER] Allergies Allergy/AdvReac Type Severity Reaction Status Date / Time Tetracyclines Allergy Rash/Hives Verified 11/17/23 21:13 codeine AdvReac Nausea & Verified 11/17/23 21:13 Vomiting Physical Exam Vitals: Vital Signs Temp Pulse Pulse Pulse Resp BP BP 11/18/23 16:00 62 16 167/82 11/18/23 15:00 63 16 175/82 11/18/23 14:00 61 16 164/78 11/18/23 13:30 59 L 16 152/78 11/18/23 13:00 55 L 16 149/74 11/18/23 12:45 57 L 16 152/80 11/18/23 12:30 91 16 152/81 11/18/23 12:28 17 11/18/23 12:15 98.1 F 60 16 147/77 11/18/23 08:04 11/18/23 07:00 98.2 F 73 17 142/76 11/18/23 02:46 97.8 F 60 18 138/69 11/17/23 22:48 69 18 153/84 11/17/23 21:02 80 18 153/85 Pulse Ox 11/18/23 16:00 94 L 11/18/23 15:00 96 11/18/23 14:00 95 11/18/23 13:30 93 L 11/18/23 13:00 92 L 11/18/23 12:45 91 L 11/18/23 12:30 91 L 11/18/23 12:28 11/18/23 12:15 96 11/18/23 08:04 98 11/18/23 07:00 96 11/18/23 02:46 98 11/17/23 22:48 97 11/17/23 21:02 99 Intake and Output 11/18/23 11/18/23 11/18/23 06:59 14:59 22:59 Intake Total 188.471 Balance 188.471 Intake: IV 100 Intake, IV Titration 88.471 Amount Heparin Sod,Pork in 0.45% 88.471 NaCl 25,000 unit In 0.45 % NaCl 1 250ml.bag @ 12 UNITS/KG/HR 9.362 mls/hr IV .Q24H [facility] Rx#: [id number] Other: Voiding Method Toilet # Voids 1 1 Weight 78.018 kg Results 11/18/23 06:49 11/17/23 16:34 Cardiac Enzymes 11/17/23 11/17/23 Range/Units 21:01 23:47 Troponin I 0.033 0.038 H* (0.000-0.034) ng/mL Coagulation 11/17/23 11/18/23 Range/Units 21:01 06:49 APTT 24.2 86.7 H (22.0-30.0) sec Lipids 11/18/23 Range/Units 06:49 Triglycerides 61.20 (0.00-149.00) mg/dL Cholesterol 164.00 (0.00-200.00) mg/dL HDL Cholesterol 65.70 H (40.00-60.00) mg/dL Cholesterol/HDL Ratio 2.50 Ratio CBC 11/18/23 Range/Units 06:49 Plt Count 232 (150-450) k/uL Current Medications Generic Name Dose Route Start Last Admin Trade Name Freq PRN Reason Stop Dose Admin Acetaminophen 650 mg 11/18/23 00:42 11/18/23 14:21 Acetaminophen Tab 325 Mg Tab PO 650 mg Q6HR PRN Administration Fever and/ or Pain Albuterol Sulfate 2 puff 11/18/23 14:46 Albuterol Hfa Inhaler INHALATION RT-Q4H PRN Shortness Of Breath Alprazolam 0.25 mg 11/18/23 10:19 Alprazolam 0.25 Mg Tab PO Q6HR PRN Mild Anxiety Aspirin 81 mg 11/19/23 09:00 Aspirin 81 Mg PO DAILY [facility] Atorvastatin Calcium 40 mg 11/19/23 09:00 Atorvastatin 40 Mg Tab PO DAILY [facility] Heparin Sodium (Porcine) 10, 1,001 mls @ 999 mls/hr 11/19/23 07:00 000 unit/ Sodium Chloride IRRIGATION 11/19/23 23:00 ONCE PRN INTRA-OP Heparin Sodium (Porcine) 2,500 250.5 mls @ 250 mls/hr 11/19/23 07:00 unit/ Sodium Chloride IRRIGATION 11/19/23 23:00 ONCE PRN INTRA-OP Isosorbide Mononitrate 30 mg 11/18/23 15:00 11/18/23 15:01 Isosorbide Mononitrate Er 30 Mg Tab.Er.24h PO 30 mg DAILY [facility] Administration Levothyroxine Sodium 75 mcg 11/18/23 15:00 11/18/23 15:01 Levothyroxine 75 Mcg Tab PO 75 mcg DAILY [facility] Administration Lisinopril 40 mg 11/19/23 09:00 Lisinopril 20 Mg Tab PO DAILY [facility] Metoprolol Tartrate 25 mg 11/17/23 21:00 11/18/23 09:02 Metoprolol Tartrate 25 Mg Tab PO 25 mg BID [facility] Administration Morphine Sulfate 4 mg 11/17/23 20:29 Morphine Sulfate 4 Mg/Ml Syringe IV Q4HR PRN Severe Pain (Scale 7 to 10) Nitroglycerin 0.4 mg 11/17/23 20:32 Nitroglycerin Sl Tabs 0.4 Mg Tab SUBLINGUAL Q5M PRN Chest Pain Nitroglycerin 0.4 mg 11/18/23 10:19 Nitroglycerin Sl Tabs 0.4 Mg Tab SUBLINGUAL Q5M PRN Chest Pain Non-Formulary Medication 25 mg 11/18/23 15:00 11/18/23 15:01 Exemestane [Aromasin] PO Not Given DAILY [facility] Pantoprazole Sodium 40 mg 11/18/23 15:00 11/18/23 15:02 Pantoprazole 40 Mg Tablet PO 40 mg DAILY [facility] Administration Intake and Output 11/18/23 11/18/23 11/18/23 06:59 14:59 22:59 Intake Total 188.471 Balance 188.471 Intake: IV 100 Intake, IV Titration 88.471 Amount Heparin Sod,Pork in 0.45% 88.471 NaCl 25,000 unit In 0.45 % NaCl 1 250ml.bag @ 12 UNITS/KG/HR 9.362 mls/hr IV .Q24H [facility] Rx#: [id number] Other: Voiding Method Toilet # Voids 1 1 Weight 78.018 kg 11/18/23 06:49 11/17/23 16:34
--- NOTE | 2023-11-18 17:49 | P.CARDCATH ---
Date of Procedure: 11/18/23 Description of Procedure: DIAGNOSTIC CORONARY ANGIOGRAPHY and LEFT HEART CATH REPORT PROCEDURES PERFORMED: Left heart catheterization Selective coronary angiography Moderate conscious sedation 27 mins Right common femoral access Right common femoral arteriogram Angioseal Closure INDICATION: NSTEMI 78-year-old female presents to the hospital with uptrending troponin pattern along with substernal chest pain which was squeezing in nature. Patient does have prior history of CAD s/p PCI and prior history of GRANITE INSTALLER of diagonal artery stent. CONSENT: I have discussed the risks, benefits and alternative therapies for the above-mentioned procedure, sedation/analgesia and necessary blood product administration (if indicated, as they pertain to this patient). The patient has indicated understanding and acceptance of the risks and procedures discussed. Conscious Sedation: Patient's ECG, heart rate, blood pressure, pulse oximetry was monitored throughout the duration of procedure under the direct supervision. 2 mg Versed and 50 mg Fentanyl were used for induction of moderate conscious sedation. Total duration of 27 minutes. PROCEDURE:After the risks, benefits and alternatives of the above mentioned procedure explained in detail with the patient, informed consent was obtained. Patient was taken to the catheterization lab and prepped and draped in usual sterile fashion. Ultrasound was used to identify the right common femoral artery. 1% lidocaine was infiltrated over the right common femoral artery. Using ultrasound arterial access was obtained using micropuncture needle. A 6-Portuguese sheath was placed in the right coomon femoral artery using modified Seldinger technique. J tipped wire was advanced under fluoroscopic guidance. Over the wire JL4 diagnostic catheter was advanced. Wire was removed, catheter was flushed and manipulated under fluoroscopy to selectively engaged the left coronary ostium. Left coronary angioplasty was performed in different angiographic projections. This catheter was exchanged for a JR4 diagnostic catheter over the wire. The catheter was flushed and manipulated to cross the aortic valve. LV pressures were obtained. Pullback was performed across aortic valve and catheter was manipulated to selectively engage the right coronary ostium under fluoroscopic g uidance. Right coronary angiography was performed in different angiographic projections. Catheter was removed over the wire. Femoral sheath was flushed. Angioseal closure device was used to close the arteriotomy site. Appropriate patent hemostasis was achieved. The patient tolerated the procedure well. Patient was transported back to the post catheterization holding area in stable condition. Angiographic images were reviewed in detail. HEMODYNAMICS: LVEDP of 30 mmHg. There was no significant gradient across aortic valve. SELECTIVE CORONARY ARTERIOGRAPHY: LEFT MAIN: Left main is short and patent. No significant disease angiographically. Bifurcates into LAD and LCx LEFT ANTERIOR DESCENDING CORONARY ARTERY: LAD is a large caliber vessel which wraps around to the apex. Proximal LAD has 30 to 40% narrowing prior to the stent. The proximal LAD stent appears to be patent. Distal edge of the stent has around 30% narrowing. Mid and distal LAD has mild luminal irregularities otherwise patent. Proximal LAD gives a large diagonal branch which is chronically occluded stent. This is unchanged from 202. LEFT CIRCUMFLEX CORONARY ARTERY: Technically the dominant vessel. Large-caliber 4.5 mm in diameter. Proximal LCx has minimal luminal irregularities. It gives rise to small OM1 branch. LCx gives rise to a large OM1 branch and then continues to become a large AV groove branch. OM 2 branch has a prior stent which is patent. Ostium of OM 2 has 10 to 20% narrowing. AV groove branch gives rise to small OM branches and PL branch which appears angiographically normal. RIGHT CORONARY ARTERY: Technically nondominant artery. Small caliber. 95% stenosis in proximal segment. It gives rise to small RV marginal branches which are unrevealing. Faint epicardial left to right collaterals filling PDA. IMPRESSION: 95% stenosis of proximal RCA which is nondominant and of small artery. Patent LAD and LCx stent. Known GRANITE INSTALLER diagonal artery stent RCA disease has progressed since 2021. PLAN: Aggressive risk factor modification per most recent ACC/AHA guidelines. Recommend dual antiplatelet therapy for next 1 year if no bleeding complications or contraindications. 125 cc fluids for 4 hours Patient had elevated blood pressure at the time of admission. Will continue her home doses of Imdur 30 mg, lisinopril 40 mg. Will add amlodipine 5 mg daily. Monitor her overnight for blood pressure and hemodynamics. Recommend outpatient follow-up with Dr. Mabry Performing Physician Mathieu Vyas MD [facility], [facility] Thank you for allowing [facility] to participate in this patient's care. Feel free to reach out in case of any followup questions.
[2023-11-18] MEDS: CLOPIDOGREL 75 MG TAB PO SCH (18:00)
[2023-11-18] MEDS: amLODIPine 5 MG TAB PO SCH (18:00)
[2023-11-19] MEDS ORDERED: HEPARIN SODIUM,PORCINE (1 ML) 2,500 UNIT in SODIUM CHLORIDE 0.9% 250 ML IRRIGATION PRN (07:00)
[2023-11-19] MEDS ORDERED: HEPARIN SODIUM,PORCINE 10,000 UNIT in SODIUM CHLORIDE 0.9% 1,000 ML IRRIGATION PRN (07:00)
[2023-11-19 08:32] VITALS: TEMP 98.4
--- NOTE | 2023-11-19 09:17 | P.PN ---
Subjective Patient is doing well. No chest discomfort dizziness or lightheadedness Yesterday she underwent coronary angiography No new stenosis was found. Her stents were patent On examination her blood pressure 131/65 mmHg pulse rate in the 60s afebrile Breath sounds are clear no rhonchi no crackles heart sounds are normal Groins have healed well Impression known coronary artery disease Known coronary stenting Coronary angiography did not reveal any progression of coronary artery disease. She has a nondominant RCA with occlusion and Medical treatment was recommended Continue medical treatment and follow-up with Dr. Mabry next week transfer to [facility] - Vital Signs Vital signs: Vital Signs Temp 98.4 F 11/19/23 07:00 Pulse 63 11/19/23 07:00 Resp 18 11/19/23 07:00 BP 148/77 11/19/23 07:00 Pulse Ox 96 11/19/23 09:04 FiO2 Intake & Output 11/18/23 11/19/23 11/19/23 18:59 06:59 18:59 Intake Total 306.471 Balance 306.471 Intake: IV 100 Intake, IV Titration 88.471 Amount Heparin Sod,Pork in 0.45% 88.471 NaCl 25,000 unit In 0.45 % NaCl 1 250ml.bag @ 12 UNITS/KG/HR 9.362 mls/hr IV .Q24H LUCIO Rx#: [id number] Oral 118 Other: Voiding Method Toilet Toilet # Voids 1 1 - Labs CBC & Chem 7: 11/18/23 06:49 11/17/23 16:34 Labs: Abnormal Lab Results - Last 24 Hours (Table) 11/18/23 Range/Units 06:49 HDL Cholesterol 65.70 H (40.00-60.00) mg/dL
[2023-11-19] MEDS: ASPIRIN 81 MG PO SCH (09:45)
[2023-11-19] MEDS: ATORVASTATIN 40 MG TAB PO SCH (09:45)
[2023-11-19] MEDS: lisinopriL 20 MG TAB PO SCH (09:45)
[2023-11-19 10:33] LABS: Platelet Count 217 X 10*3/uL (140-440)
--- NOTE | 2023-11-19 11:16 | CA ---
Transthoracic Echo Report Name: Rasheeda Manning Age: 78 Gender: F : 1945 Exam Date: 11/19/2023 08:10 Exam Location: [place] [facility] Ht (in): 62 Wt (lb): 172 Ordering Physician: Dilip Sultana DO Attending/Referring Phys: [id number], Rd Oss Architect Lizeth Alvarez, FARIDEH Procedure CPT: Indications: CP Cardiac Hx: Technical Quality: Good Contrast 1: Total Dose (mL): Contrast 2: Total Dose (mL): MEASUREMENTS (Male / Female) Normal Values 2D ECHO LV Diastolic Diameter PLAX 5.0 cm 4.2 - 5.9 / 3.9 - 5.3 cm LV Systolic Diameter PLAX 2.8 cm IVS Diastolic Thickness 1.0 cm 0.6 - 1.0 / 0.6 - 0.9 cm LVPW Diastolic Thickness 1.0 cm 0.6 - 1.0 / 0.6 - 0.9 cm LV Relative Wall Thickness 0.4 LA Volume 60.9 cm??? 18 - 58 / 22 - 52 cm??? LA Volume Index 32.4 cm???/m??? 16 - 28 cm???/m??? M-MODE Aortic Root Diameter MM 2.8 cm LA Systolic Diameter MM 3.7 cm LA Ao Ratio MM 1.3 DOPPLER AV Peak Velocity 164.2 cm/s AV Peak Gradient 10.8 mmHg AI Peak Velocity 345.6 cm/s AI Peak Gradient 47.8 mmHg AI Pressure Half Time 1254.4 ms Mitral E Point Velocity 84.6 cm/s Mitral A Point Velocity 90.3 cm/s Mitral E to A Ratio 0.9 MV Deceleration Time 218.6 ms FINDINGS Left Ventricle Left ventricular ejection fraction is estimated at 55-60 %. Left ventricular cavity size normal. Left ventricular wall thickness normal. Normal left ventricular wall motion. Right Ventricle Normal right ventricular size and function. Unable to estimate the right ventricular systolic pressure. Right Atrium Normal right atrial size. No right atrial thrombus or mass seen. Left Atrium Mildly increased left atrial volume. Mildly increased left atrial area. No left atrial thrombus or mass present. Mitral Valve Mitral valve thickened. Mild mitral annular calcification. Mild mitral regurgitation. No evidence for mitral valve prolapse. No mitral stenosis. Aortic Valve Trileaflet aortic valve. Mild aortic regurgitation. Tricuspid Valve Structurally normal tricuspid valve. No tricuspid stenosis, regurgitation or prolapse. Pulmonic Valve Structurally normal pulmonic valve. Trace to mild pulmonic regurgitation. Pericardium No pericardial or pleural effusion. Aorta Normal size aortic root and proximal ascending aorta. CONCLUSIONS Preserved LV send systolic function Previewed by: Dr. Mando Alejandro MD (Electronically Signed) Final Date: 19 November 2023 11:15
[2023-11-19 13:49] VITALS: BP 157/82; PULSE 65; RESP 16
--- NOTE | 2023-11-20 16:29 | P.DS ---
Providers Date of admission: 11/17/23 20:32 Attending physician: Payton Izaguirre Consults: 11/17/23 20:32 Consult Physician Urgent Consulting Provider: Krunal Salas Consult Reason/Comments: cp Do you want consulting provider notified?: Yes Primary care physician: Umesh Pan Hospital Course: Final Diagnosis -non-ST elevation myocardial infarction. Patient had a cardiac catheterization and did not require any stents but had progression of her RCA disease. -Chronic kidney disease stage II with baseline creatinine of around 1.1. Patient present creatinine is around that -Leukocytosis without any clear evidence of infection at this time -Hypertension -History of DVT presently not on any anticoagulation -Gastroesophageal reflux disease -Hyperlipidemia -Hypothyroidism -Coronary disease with stents in the past Discharge Disposition Patient is stable for discharge home. As mentioned she has been started on dual antiplatelet therapy with Plavix 75 mg daily in addition to baby aspirin daily. Patient was started on metoprolol 25 mg twice a day and amlodipine 5 mg daily her propranolol has been discontinued. Patient has been recommended to follow- up with her PCP Dr. Umesh Pan in 1 to 2 days and needs to follow-up with her primary solar maintenance technician Dr. Barajas in 1 to 2 weeks. Hospital Course Patient is a pleasant 78-year-old female with stents in the past. Patient came in with substernal chest pain pressure-like sensation squeezing kind of pain which started after eating a bologna sandwich but not burning sensation. Patient any fever chills chest pain is nonpleuritic in nature patient had a CT angio of the chest which did not show any pulm embolism pneumonia or aortic dissection. Patient positive troponin is negative and the third 1 is slightly elevated to 0.[address]-T wave changes seen in the anterolateral leads because of which patient underwent cardiac catheterization. Findings include; 95% stenosis of proximal RCA which is nondominant and of small artery, Patent LAD and LCx stent, Known [employer] diagonal artery stent. There was felt to progression of the RCA disease for this reason patient recommended for aggressive risk factor modification as well as dual antiplatelet therapy for the next year if no bleeding complications or contraindications. Cardiology has recommended the patient to discharge on Imdur and lisinopril per her home doses and has been started amlodipine 5 mg daily. He has not complaining of any chest pain or shortness of breath. She has been monitored overnight. Her lungs are clear S1-S2 auscultated abdomen is soft and nontender. Patient will be discharged home. Please see medication reconciliation for a list of current medications. Thank you for allowing us to participate in the care of this patient. The impression and plan of care has been dictated by Shonna Bruno, Nurse Practitioner as directed. Dr. Elisabet MD I have performed a history and physical examination and medical decision making of this patient, discussed the same with the dictator, and agree with the dictators assessment and plan as written, documented as a scribe. Based on total visit time, I have performed more than 50% of this visit. Patient Condition at Discharge: Stable Plan - Discharge Summary New Discharge Prescriptions: New amLODIPine [Norvasc] 5 mg PO DAILY #30 tab Metoprolol Tartrate [Lopressor] 25 mg PO BID #60 tab Clopidogrel [Plavix] 75 mg PO DAILY #30 tab Continue Levothyroxine Sodium [Synthroid] 75 mcg PO DAILY Aspirin 81 mg PO DAILY C,E,Zinc,Copper 11/Cgobu1f/Lut [Ocuvite Adult 50 Plus Softgel] 1 cap PO DAILY Benazepril HCl [Lotensin] 40 mg PO DAILY Exemestane [Aromasin] 25 mg PO DAILY Atorvastatin [Lipitor] 40 mg PO DAILY Albuterol Inhaler [Ventolin Hfa Inhaler] 2 puff INHALATION RT-Q4H PRN PRN Reason: Shortness Of Breath Pantoprazole [Protonix] 40 mg PO DAILY Cholecalciferol [Vitamin D3 (25 Mcg = 1000 Iu)] 25 mcg PO BID Isosorbide Mononitrate ER [Imdur] 30 mg PO DAILY Discontinued Propranolol HCl [Propranolol HCl ER] 80 mg PO DAILY Discharge Medication List Levothyroxine Sodium [Synthroid] 75 mcg PO DAILY 01/28/17 [History] Aspirin 81 mg PO DAILY 02/02/17 [History] C,E,Zinc,Copper 11/Yghpi8s/Lut [Ocuvite Adult 50 Plus Softgel] 1 cap PO DAILY 05/19/18 [History] Benazepril HCl [Lotensin] 40 mg PO DAILY 12/18/19 [History] Exemestane [Aromasin] 25 mg PO DAILY 12/18/19 [History] Atorvastatin [Lipitor] 40 mg PO DAILY 03/28/20 [History] Isosorbide Mononitrate ER [Imdur] 30 mg PO DAILY 09/24/21 [History] Albuterol Inhaler [Ventolin Hfa Inhaler] 2 puff INHALATION RT-Q4H PRN 11/17/23 [History] Cholecalciferol [Vitamin D3 (25 Mcg = 1000 Iu)] 25 mcg PO BID 11/17/23 [History] Pantoprazole [Protonix] 40 mg PO DAILY 11/17/23 [History] Clopidogrel [Plavix] 75 mg PO DAILY #30 tab 11/19/23 [Rx] Metoprolol Tartrate [Lopressor] 25 mg PO BID #60 tab 11/19/23 [Rx] amLODIPine [Norvasc] 5 mg PO DAILY #30 tab 11/19/23 [Rx] Follow up Appointment(s)/Referral(s): Umesh Pan MD [Primary Care Provider] - 1-2 days Sonu Barajas MD [STAFF PHYSICIAN] - 1 Week Patient Instructions/Handouts: *Surgery [facility] - After Heart Catheterization - Office Workforce Planner Instructions, Heart Catheterization (DC) Discharge Disposition: HOME SELF-CARE
== END 2023-11-19 15:00 | disposition home or self-care (01) ==
LOC: EC 15:41 → 6NMEDSUR 20:32 → 3SCARD 11-18 03:24 → 6NMEDSUR 11-18 11:51
PROVIDERS: ADMIT Hospitalist; ATTEND Hospitalist
DX: I21.4 Non-ST elevation (NSTEMI) myocardial infarction (principal); I25.10 Atherosclerotic heart disease of native coronary artery without angina pectoris; K21.9 Gastro-esophageal reflux disease without esophagitis; E78.5 Hyperlipidemia, unspecified; I12.9 Hypertensive chronic kidney disease with stage 1 through stage 4 chronic kidney disease, or unspecified chronic kidney disease; N18.2 Chronic kidney disease, stage 2 (mild); D72.829 Elevated white blood cell count, unspecified; E89.0 Postprocedural hypothyroidism; F41.9 Anxiety disorder, unspecified; I25.2 Old myocardial infarction; Z85.3 Personal history of malignant neoplasm of breast; Z86.718 Personal history of other venous thrombosis and embolism; Z95.5 Presence of coronary angioplasty implant and graft; Z79.890 Hormone replacement therapy; Z79.82 Long term (current) use of aspirin; Z79.899 Other long term (current) drug therapy; Z88.1 Allergy status to other antibiotic agents; Z88.5 Allergy status to narcotic agent
CPT/HCPCS: 96365; 96366; 99285; 36415; 94760 ×2; 93005 ×2; 93306; 93458; 76937; 80061; 80053; 83735; 84484; 85025; 85049 ×2; 85610; 85730 ×2; 71046; 71275; G0378 ×4; C1760; C1769 ×2; C1894 ×2; J2250; J2001; J1644 ×2; Q9967 ×2; J3010

== ENCOUNTER → 2024-03-02 | Outpatient (CLI) | payer MEDICARE, OTHER ==
[2024-03-02 14:03] VITALS: BP 141/77; PULSE 77; RESP 17; TEMP 98.2
--- NOTE | 2024-03-02 14:20 | P.PN ---
Subjective Progress Note Date: 03/02/24 Principal diagnosis: right breast DCIS 2019, left breast mastopexy Subjective Progress Note Date: 03-02-24 Principal diagnosis: right breast DCIS 2020 right breast for DCIS/Stage 0 2019; left breast mastopexy DCIS right breast Rasheeda is a 78-year-old white female status post right sentinel node biopsy and lumpectomy for ductal carcinoma in situ on 07-18-19. Pathology revealed DCIS at anterior and posterior margins. Posteriorly we were at the pectoralis major muscle and anteriorly skin was taken. The results were discussed with radiation oncology and it was not felt that further resection is necessary. She is not complaining of any lumps masses or nodules in her breasts. No nipple discharge or skin changes for which she is concerned. No history of any recent trauma or infection of the breast. She completed 20 treatments of radiation therapy in September 2019. She is presently on Aromasin, she is complaining of joint pain since she started this but this has improved. She has discussed this with medical oncology and was instructed to take Tylenol. She is continuing to take the Aromasin. She did not have any chemotherapy. She had a bilateral mammogram on 05-17-23 BIRAD 2. She states that she is not complaining of any new lumps masses or nodules in either breast. However depending on her position she notes some spasm in the right lateral chest wall, it intermittnatly cramps up in a spasm. The spasm was only for a few minutes but it is very painful for her. It does not happen every day. We did a left breast mastopexy on 11-26-20. She underwent a left knee replacement on 01-29-21. She still has some discomfort under her right arm at night, she had physical therapy which helped at the time but did not completely resolve the pain Of any new lumps masses or nodules of concern in either breast Note from medical oncology 07-07-23 reviewed, continue aromisin, vitamen E for hot flashes Family history: Unknown patient is adopted Hormonal history: Menarche: 16 , breast fed: no, age at first 26 menopause: hysterectomy mid 30's (total done for bleeding) BCP: 1 year hormones: none Surgical history: 1. Total abdominal hysterectomy 2. Right breast lumpectomy and sentinel node biopsy 3. Surgeries 4. Cholecystectomy 5. Tonsillectomy 6. Balloon dilation of the esophagus done twice 7. Parathyroid surgery 8. Bilateral elbow tendon surgery 9. Knee replacement 10. cardiac stent 11. November 2023, cardiac cath Medical History: Hypothyroid Hypertension Joint pain related to Aromasin improving on cymbalta developed DVT right leg in 2010 with a symptomatic pulmonary emboli heart attack in November 2023 no stint placed Social History: Nicotine: Negative Alcohol: Negative Drugs: Negative Review of systems: HEENT: Wears glasses, otherwise negative Lungs: Negative Cardiac: Hypertension, cardiac stent GI: Negative : Status post total abdominal hysterectomy Musculoskeletal: Joint pain possibly related to the Aromasin neurologic: Negative Hematologic: Baby aspirin daily ALLERGIES: As per HPI Objective - Vital Signs Vital signs: Vital Signs Temp 98.2 F 03/02/24 14:01 Pulse 77 03/02/24 14:01 Resp 17 03/02/24 14:01 BP 141/77 03/02/24 14:01 Pulse Ox 98 03/02/24 14:01 FiO2 Intake & Output 03/01/24 03/02/24 03/02/24 18:59 06:59 18:59 Weight 74.843 kg - Constitutional General appearance: Present: cooperative - EENT Eyes: Present: EOMI ENT: Present: hearing grossly normal - Neck Neck: Present: normal ROM - Respiratory Respiratory: bilateral: CTA - Cardiovascular Rhythm: regular Heart sounds: normal: S1, S2 - Integumentary Integumentary: Present: normal turgor - Musculoskeletal Musculoskeletal: Present: gait normal - Psychiatric Psychiatric: Present: A&O x's 3, appropriate affect, intact judgment & insight - Additional findings Additional findings: Breast Exam: BRA: 42D inspection: Patient status post right breast lumpectomy, left breast mastopexy Palpation: Right breast: Multi-positional exam fibrocystic changes no dominant masses or nodules of concern; attention at the lumpectomy site does not reveal any lumps masses or nodules of concern on today's visit Right axilla: No adenopathy of concern Left breast: Multi-positional exam fibrocystic changes no dominant masses or nodules of concern Left axilla: No adenopathy of concern Fungal infection under both breast resolved Assessment and Plan Assessment: Impression: Right breast status post lumpectomy and radiation therapy for DCIS, no evidence of recurrent disease at this time; 07-18-19 Fibrocystic breast changes Status post left breast mastopexy Bilateral mammogram on benign BIRADS 2 Patient has intermittent right chest wall discomfort Plan: Bilateral mammogram in May 2024 with examination at that time Patient to follow up sooner any questions or concerns related to her breast Continue Aromasin as per medical oncology Appointment physical therapy secondary to discomfort right chest wall was followed and minimal relief pain chest wall right CC: Dr. Pan
== END ==
LOC: WWCWWP 13:55
PROVIDERS: ATTEND Surgery
DX: R92.8 Other abnormal and inconclusive findings on diagnostic imaging of breast (principal); N60.11 Diffuse cystic mastopathy of right breast; N60.12 Diffuse cystic mastopathy of left breast; R07.89 Other chest pain; Z48.817 Encounter for surgical aftercare following surgery on the skin and subcutaneous tissue; Z85.3 Personal history of malignant neoplasm of breast; Z92.3 Personal history of irradiation; Z98.890 Other specified postprocedural states; Z88.1 Allergy status to other antibiotic agents; Z88.5 Allergy status to narcotic agent

== ENCOUNTER → 2024-05-24 | Outpatient (CLI) | payer MEDICARE, OTHER ==
--- NOTE | 2024-05-25 08:41 | MM ---
Reason for Exam: Screening (asymptomatic). Last screening mammogram was performed 12 month(s) ago. Patient History: Menarche at age 15. First Full-Term at age 26. Left ovary removed at age 41. Right ovary removed at age 41. Hysterectomy at age 41. Postmenopausal. Patient has history of breast feeding. Breast cancer, right, age 74. 07/18/2019, Lumpectomy on the Right side. 07/18/2019, Malignant Core Biopsy on the right side. 05/11/2019, Malignant Core Biopsy on the right side. Prior Study Comparison: 05/13/2021 Bilateral Diagnostic Mammogram, [facility]. 05/15/2022 Bilateral MG 3D diag mammo w/cad LEEROY, [facility]. 05/17/2023 Bilateral MG 3D diag mammo w/cad LEEROY, [facility]. Tissue Density: The breasts are heterogeneously dense, which may obscure small masses. Findings: Analyzed By CAD. Stable postoperative distortion right breast. Stable benign calcifications seen bilaterally. There is no suspicious group of microcalcifications or new suspicious mass in either breast. Overall Assessment: Benign, BI-RAD 2 Management: Screening Mammogram of both breasts in 1 year. . Patient should continue monthly self-breast exams. A clinical breast exam by your physician is recommended on an annual basis. This exam should not preclude additional follow-up of suspicious palpable abnormalities. Note on Alyson scores and lifetime risk: 1. A Alyson score greater than 3% is considered moderate risk. If this is the case, consider specialist referral to assess eligibility for a risk reducing agent. 2. If overall lifetime risk for the development of breast cancer is 20% or higher, the patient may qualify for future screening with alternating mammogram and breast MRI. [facility], , 05/25/2024 8:38 AM. Electronically signed and approved by: Jarred Gibson M.D. Radiologis
== END | disposition home or self-care (01) ==
LOC: RADMAMWWP 09:48
PROVIDERS: ATTEND Surgery
DX: Z12.31 Encounter for screening mammogram for malignant neoplasm of breast (principal); R92.333 Mammographic heterogeneous density, bilateral breasts; Z78.0 Asymptomatic menopausal state; Z85.3 Personal history of malignant neoplasm of breast; Z90.722 Acquired absence of ovaries, bilateral
CPT/HCPCS: 77063; 77067

== ENCOUNTER → 2024-05-25 | Outpatient (CLI) | payer MEDICARE, OTHER ==
--- NOTE | 2024-05-25 12:41 | P.PN ---
Subjective Progress Note Date: 05/25/24 05-25-24 Principal diagnosis: right breast for DCIS/Stage 0 2019; left breast mastopexy DCIS right breast Rasheeda is a 79-year-old white female status post right sentinel node biopsy and lumpectomy for ductal carcinoma in situ on 07-18-19. Pathology revealed DCIS at anterior and posterior margins. Posteriorly we were at the pectoralis major muscle and anteriorly skin was taken. The results were discussed with radiation oncology and it was not felt that further resection is necessary. She is not complaining of any lumps masses or nodules in her breasts. No nipple discharge or skin changes for which she is concerned. No history of any recent trauma or infection of the breast. She completed 20 treatments of radiation therapy in September 2019. She is presently on Aromasin, she is complaining of joint pain since she started this but this has improved. She has discussed this with medical oncology and was instructed to take Tylenol. She is continuing to take the Aromasin. She did not have any chemotherapy. She had a bilateral mammogram on 05-24-24 CAROL 2 personally interpreted She states that she is not complaining of any new lumps masses or nodules in either breast. However depending on her position she notes some spasm in the right lateral chest wall, it intermittnatly cramps up in a spasm. The spasm was only for a few minutes but it is very painful for her. It does not happen every day. We did a left breast mastopexy on 11-26-20. She underwent a left knee replacement on 01-29-21. She still has some discomfort under her right arm at night, she had physical therapy which helped at the time but did not completely resolve the pain She is not complaining of any new lumps masses or nodules of concern in either breast Note from medical oncology 07-07-23 reviewed, continue aromisin, vitamen E for hot flashes Family history: Unknown patient is adopted Hormonal history: Menarche: 16 , breast fed: no, age at first 26 menopause: hysterectomy mid 30's (total done for bleeding) BCP: 1 year hormones: none Surgical history: 1. Total abdominal hysterectomy 2. Right breast lumpectomy and sentinel node biopsy 3. Surgeries 4. Cholecystectomy 5. Tonsillectomy 6. Balloon dilation of the esophagus done twice 7. Parathyroid surgery 8. Bilateral elbow tendon surgery 9. Knee replacement 10. cardiac stent 11. November 2023, cardiac cath Medical History: Hypothyroid Hypertension Joint pain related to Aromasin improving on cymbalta developed DVT right leg in 2010 with a symptomatic pulmonary emboli heart attack in November 2023 no stint placed Social History: Nicotine: Negative Alcohol: Negative Drugs: Negative Review of systems: HEENT: Wears glasses, otherwise negative Lungs: Negative Cardiac: Hypertension, cardiac stent GI: Negative : Status post total abdominal hysterectomy Musculoskeletal: Joint pain possibly related to the Aromasin neurologic: Negative Hematologic: Baby aspirin daily ALLERGIES: As per HPI Objective - Constitutional General appearance: Present: cooperative - EENT Eyes: Present: EOMI ENT: Present: hearing grossly normal - Neck Neck: Present: normal ROM - Respiratory Respiratory: bilateral: CTA - Cardiovascular Rhythm: regular Heart sounds: normal: S1, S2 - Integumentary Integumentary: Present: normal turgor - Musculoskeletal Musculoskeletal: Present: gait normal - Psychiatric Psychiatric: Present: A&O x's 3, appropriate affect, intact judgment & insight - Additional findings Additional findings: Breast Exam: BRA: 42D inspection: Patient status post right breast lumpectomy, left breast mastopexy Palpation: Right breast: Multi-positional exam fibrocystic changes no dominant masses or nodules of concern; attention at the lumpectomy site does not reveal any lumps masses or nodules of concern on today's visit Right axilla: No adenopathy of concern Left breast: Multi-positional exam fibrocystic changes no dominant masses or nodules of concern Left axilla: No adenopathy of concern Fungal infection under both breast resolved Assessment and Plan Assessment: Impression: Right breast status post lumpectomy and radiation therapy for DCIS, no evidence of recurrent disease at this time; 07-18-19 Fibrocystic breast changes Status post left breast mastopexy Bilateral mammogram on benign BIRADS 2 personally reviewed Patient has intermittent right chest wall discomfort Plan: Bilateral mammogram in May 2025 with examination at that time Patient to follow up sooner any questions or concerns related to her breast Continue Aromasin as per medical oncology CC: Dr. Pan
[2024-05-25 13:34] VITALS: BP 152/80; PULSE 85; RESP 18; TEMP 97.1
== END ==
LOC: WWCWWP 11:34
PROVIDERS: ATTEND Surgery
DX: Z48.817 Encounter for surgical aftercare following surgery on the skin and subcutaneous tissue (principal); R92.8 Other abnormal and inconclusive findings on diagnostic imaging of breast; N60.11 Diffuse cystic mastopathy of right breast; N60.12 Diffuse cystic mastopathy of left breast; R07.89 Other chest pain; Z98.890 Other specified postprocedural states; Z88.1 Allergy status to other antibiotic agents; Z88.5 Allergy status to narcotic agent

== ENCOUNTER 2024-09-01 10:29 | Day surgery (SDC) | payer MEDICARE, OTHER ==
[2024-08-31 13:23] VITALS: BMI 30.2
[~2024-09-01 10:29] MED LIST changes: -ALPRAZolam 0.25 MG TAB PO PRN; -ALPRAZolam 0.5 MG TAB PO PRN; -ASPIRIN 325 MG TAB PO STA; -ATORVASTATIN 80 MG TAB PO STA; -HEPARIN SODIUM,PORCINE 10,000 UNIT in SODIUM CHLORIDE 0.9% 1,000 ML IRRIGATION PRN; -HEPARIN SODIUM,PORCINE 2,500 UNIT in SODIUM CHLORIDE 0.9% 250 ML IRRIGATION PRN; +LACTATED RINGERS 1,000 ML IV SCH; -NITROGLYCERIN SL TABS 0.4 MG TAB SUBLINGUAL PRN; -SODIUM CHLORIDE 0.9% 1,000 ML in EMPTY BAG 1 BAG IV ONE
[2024-09-01] MEDS: IV FLUID CONTINUATION 1,000 ML IV ONE (11:01)
[2024-09-01 11:11] VITALS: RESP 16; TEMP 97.4
[2024-09-01 11:19] LABS: Glucose,Whole Blood 102 mg/dL (70-110)
[2024-09-01] MEDS: LACTATED RINGERS 500 ML IV ONE ×2 (11:21→12:08)
[2024-09-01] MEDS ORDERED: LIDOCAINE 2% (PF) 20 MG/ML 5 ML VIAL ONE (12:09)
[2024-09-01] MEDS ORDERED: PROPOFOL 10 MG/ML 20 ML VIAL IV ONE (12:09)
--- NOTE | 2024-09-01 12:18 | P.PCN ---
Date of Procedure: 09/01/24 Procedure(s) Performed: BRIEF HISTORY: Patient is a 79-year-old, pleasant, white female scheduled for an upper endoscopy as a part of evaluation of intermittent dysphagia to solids. She was diagnosed with eosinophilic esophagitis 5 years ago at which time she had an EGD with dilation for esophageal stricture. Since then she has been on Protonix 40 mg daily.. PROCEDURE PERFORMED: Esophagogastroduodenoscopy with biopsy and dilation. PREOPERATIVE DIAGNOSIS: Intermittent dysphagia to solids. IV sedation per anesthesia. PROCEDURE: After informed consent was obtained, the patient was brought into the endoscopy unit. IV sedation was administered by Anesthesia under continuous monitoring. Initially the Olympus GIF-140 video endoscope was inserted into the mouth. Esophagus intubated without any difficulty. It was gradually advanced into the stomach and duodenum and carefully examined. The bulb and the second part of the duodenum appeared normal. The scope at this time was withdrawn to the stomach, adequately insufflated with air, and upon careful examination, mucosa of the antrum, body, cardia and the fundus appeared normal. The scope was then withdrawn into the esophagus. Small hiatal hernia noted. There was a distal esophageal stricture identified which was dilated using 15 and 16.5 mm TTS balloon sequentially for 60 seconds. The GE junction was located at 39 cm from the incisors. The esophagus appeared normal. There were no erosions or ulcerations seen, biopsies were done from mid and distal esophagus to evaluate for eosinophilic esophagitis and the patient tolerated the procedure well. IMPRESSION: 1. Distal esophageal stricture status post balloon dilation using 15 and 16.5 mm TTS balloon. 2. Small hiatal hernia. RECOMMENDATIONS: The findings of this examination were discussed with the patient as well as her family. She was advised to follow with the biopsy res ults. Continue with Protonix 40 mg daily and follow antireflux measures. Advised on clear liquids liquids for 2 hours..
[2024-09-01 12:42] VITALS: BP 153/72; PULSE 78
== END 2024-09-01 13:19 | disposition home or self-care (01) ==
LOC: ORWHC2ENDO 10:29
PROVIDERS: ATTEND Internal Medicine Gastroenterology
DX: K21.00 Gastro-esophageal reflux disease with esophagitis, without bleeding (principal); K22.2 Esophageal obstruction; K44.9 Diaphragmatic hernia without obstruction or gangrene; I10 Essential (primary) hypertension; I25.10 Atherosclerotic heart disease of native coronary artery without angina pectoris; E78.5 Hyperlipidemia, unspecified; E07.9 Disorder of thyroid, unspecified; Z79.890 Hormone replacement therapy; Z95.5 Presence of coronary angioplasty implant and graft; Z88.5 Allergy status to narcotic agent; Z79.899 Other long term (current) drug therapy; Z88.1 Allergy status to other antibiotic agents; Z90.49 Acquired absence of other specified parts of digestive tract; Z90.710 Acquired absence of both cervix and uterus; Z85.3 Personal history of malignant neoplasm of breast
CPT/HCPCS: 88305; 43239; 43249; J2704; J2003; C1726